=== PATIENT | male | born 1970 | race Caucasian/White ===

== ENCOUNTER 2022-03-04 04:27 | Emergency (ER) | payer MEDICAID, SELFPAY ==
--- NOTE | 2022-03-04 | ECG_ITS ---
Test Reason : chest pain Blood Pressure : / mmHG Vent. Rate : 066 BPM Atrial Rate : 066 BPM P-R Int : 124 ms QRS Dur : 124 ms QT Int : 434 ms P-R-T Axes : 017 017 -12 degrees QTc Int : 454 ms Normal sinus rhythm Right bundle branch block Nonspecific T wave abnormality Inferior leads Abnormal ECG When compared with ECG of 11-DEC-2010 06:57, Right bundle branch block is now Present Referred By: Sreedhar Monsivais Electronically Signed By:CYNDY DOWNS MD
--- NOTE | ~2022-03-04 | XR_ITS ---
EXAMINATION: XR CHEST CLINICAL INFORMATION: Chest pain COMPARISON: 12/10/2010 TECHNIQUE: Frontal view of the chest was obtained. FINDINGS: The lungs are well expanded. There is no focal consolidation, edema, or effusion. No pneumothorax. The cardiomediastinal silhouette is within normal limits. No acute osseous abnormality. Degenerative changes at the left glenohumeral joint. XR/XR chest 1V IMPRESSION: No acute pulmonary disease.
[2022-03-04 04:35] VITALS: BP 155/90; PULSE 65; O2SAT 100
[2022-03-04 04:36] VITALS: BMI 25.8
[2022-03-04 04:43] VITALS: BP 142/84; PULSE 65; RESP 22; O2SAT 100
--- NOTE | 2022-03-04 04:53 | ED.CHESTPAIN ---
HPI - Chest Pain General Chief Complaint: Chest Pain Stated Complaint: CP/SOB Time Seen by Provider: 03/04/22 04:53 Source: patient Mode of arrival: EMS Limitations: no limitations History of Present Illness HPI narrative: Patient with history of substance abuse use 8 bags of heroin earlier today feels anxious feels short of breath for a long time multiple complaints saturating 100% on room air Related Data Allergies Allergy/AdvReac Type Severity Reaction Status Date / Time No Known Allergies Allergy Verified 03/04/22 04:53 Review of Systems Review of Systems: Yes all other systems are reviewed and are negative [facility] Social History Social History Advance Directives: No Advance Directives Information Provided: No Physical Exam Vital Signs: Vital Signs: Last Vital Signs Pulse 65 03/04/22 04:43 Resp 22 H 03/04/22 04:43 BP 142/84 H 03/04/22 04:43 Pulse Ox 100 03/04/22 04:43 O2 Del Method 03/04/22 04:43 BMI result Body Mass Index 25.8 Appearance: Alert. Oriented X3. No acute distress. Anxious Eyes: PERRLA, No Nystagmus ENT: Pharynx normal. Oral Mucosa moist Neck: Normal inspection. Neck supple. CVS: Normal heart rate and rhythm. Pulses normal. Respiratory: No respiratory distress. Equal air entry bilateral, no wheezing/rales/rhonchi Abdomen: Soft and nontender. Bowel sounds are present, no mass palpable, no CVA tenderness Skin: Skin warm and dry. Normal skin color. Normal skin turgor. Extremities: No lower extremity edema. No calf tenderness IV track moralez Neuro: Oriented X 3. No motor deficit. No sensory deficit.No cerebellar signs , cranial nerves II-XII intact MDM - Chest Pain MDM Narrative Medical decision making narrative: Patient saturating 100% on room air very anxious on arrival at this time sleeping no complaints discharge patient home ECG Data ECG #1: Attestation: I personally reviewed and interpreted this ECG as follows: Interpretation: Normal sinus rhythm heart rate 65 beats per minute right bundle-branch block no acute ST changes no acute ischemia Discharge Plan Discharge Clinical Impression: Opiate abuse, continuous Patient Disposition: Home, Self-Care Instructions: Opioid Use Disorder (ED) Additional Instructions: Follow detox
[2022-03-04] MEDS: LORazepam 1 MG TABLET 2 MG PO (05:10)
== END 2022-03-04 06:38 | disposition home or self-care (01) ==
PROVIDERS: Emergency Provider Internal Medicine
DX: R06.02 Shortness of breath (principal); F11.10 Opioid abuse, uncomplicated; R07.89 Other chest pain
CPT/HCPCS: 71045; 93005; 99283; 99284

== ENCOUNTER 2022-09-21 01:31 | Inpatient (IN) | payer MEDICAID, SELFPAY ==
--- NOTE | ~2022-09-21 | US_ITS ---
EXAMINATION: US RETROPERITONEAL LIMITED (RENAL ONLY) CLINICAL INFORMATION: Acute kidney injury. COMPARISON: None available. TECHNIQUE: Real-time ultrasound examination of the kidneys. Images supplemented by color Doppler. FINDINGS: RIGHT KIDNEY: 13.4 x 5.3 x 6.7 cm (SAG x AP x TRV). Diffusely echogenic. The kidney. Unremarkable in size and contour. Renal cortical thickness is normal. No calculi or focal parenchymal lesions identified. No hydronephrosis. LEFT KIDNEY: 12.3 x 7.2 x 7.2 cm (SAG x AP x TRV). Diffusely echogenic. The kidney. Unremarkable in size and contour. Renal cortical thickness is normal. No calculi or focal parenchymal lesions identified. No hydronephrosis. BLADDER: Not imaged. US/US renal BI IMPRESSION: No evidence of stone or hydronephrosis. Increased renal parenchymal echogenicity bilaterally, suggesting medical renal disease.
--- NOTE | ~2022-09-21 | CT_ITS ---
EXAMINATION: CT CHEST, ABDOMEN AND PELVIS WITHOUT CONTRAST CLINICAL INFORMATION: Shortness of breath COMPARISON: Chest x-ray from the same day TECHNIQUE: Multidetector volumetric imaging was performed from the thoracic inlet through the pubic symphysis. Sagittal and coronal reformatted images were obtained on the technologist's workstation. Axial MIP volume rendering provided. This CT examination was performed using dose optimization techniques as appropriate, variously including the following: *Automated exposure control *Adjustment of mA and/or kV according to patient size (this includes techniques or standardized protocols for targeted exams where dose is matched to indication/reason for exam; i.e. extremities or head) *Use of iterative reconstruction technique DLP: 1240 mGy-cm FINDINGS: CHEST: Lungs: There are moderately extensive multifocal regions of consolidation and relatively nodular opacities bilaterally. Most extensive region of consolidation is in the left lower lobe. Several of the more nodular consolidative foci demonstrate internal cavitations. Mediastinum: Thyroid gland is grossly unremarkable. Limited evaluation of the mediastinum without intravenous contrast. Mild mediastinal adenopathy cannot be excluded. Cardiac size is within normal limits; no pericardial effusion. Coronary Artery Calcification: Mild Pleura: No pneumothorax. Trace left pleural effusion. Chest Wall/Axilla: Unremarkable. ABDOMEN/PELVIS: Liver, Gallbladder, Biliary Tree: The liver is grossly unremarkable though not well assessed without intravenous contrast. Gallbladder appears physiologically distended without significant wall thickening or surrounding inflammation. Pancreas: Grossly unremarkable. Spleen: Enlarged, measuring approximately 15 cm in length. Adrenal Glands: Left adrenal calcification may reflect sequelae of prior hemorrhage or infection. Right adrenal gland appears unremarkable. Kidneys and Ureters: Mildly prominent renal pelvises, with no obstructing calculus seen. Bladder: Unremarkable. Gastrointestinal Tract: No evidence of bowel obstruction. No significant bowel wall thickening is seen. There is moderate stool in the colon. Appendix is suspected to be collapsed though is overall not well evaluated. Abdominal Wall: No hernia is demonstrated. Lymphovascular Structures: Lymph nodes: Not well evaluated without intravenous contrast. Vascular: Relatively mild atherosclerotic calcification. Pelvic Viscera: Unremarkable. OSSEOUS STRUCTURES: Scattered degenerative changes including thoracic endplate osteophytes and lower lumbar facet arthropathy. Degenerative change also noted at L5-S1. CT/CT abdomen pelvis wo IV con IMPRESSION: 1. Moderately extensive regions of pulmonary consolidation and relatively nodular opacities bilaterally, some of which demonstrate cavitations. This raises suspicion for an infectious etiology, including septic emboli. Malignant etiology is considered overall less likely, though imaging follow-up is recommended to assess for resolution. 2. Trace left pleural effusion. 3. Splenomegaly. 4. Mildly prominent renal pelvises, with no obstructing calculus seen. 5. Coronary artery calcifications. Correlation with cardiac risk factors is recommended.
--- NOTE | ~2022-09-21 | XR_ITS ---
EXAMINATION: XR CHEST CLINICAL INFORMATION: Shortness of breath COMPARISON: 03/04/2022 TECHNIQUE: Frontal view of the chest was obtained. FINDINGS: The lungs are hypoinflated. There are multifocal patchy bilateral opacities suspicious for multifocal pneumonia. No evidence of pneumothorax or significant pleural effusion. The cardiomediastinal contour is unremarkable. No acute osseous findings are seen. XR/XR chest 1V IMPRESSION: Multifocal patchy bilateral opacities suspicious for multifocal pneumonia. Radiographic followup after treatment/resolution of symptoms is recommended.
--- NOTE | ~2022-09-21 | CT_ITS ---
EXAMINATION: CT HEAD WITHOUT CONTRAST CLINICAL INFORMATION: Septic emboli. Encephalopathy. COMPARISON: CTA of the head and brain MRI July 2022 TECHNIQUE: Contiguous axial imaging was performed from the skull base to vertex without intravenous administration of contrast. This CT examination was performed using dose optimization techniques as appropriate, variously including the following: *Automated exposure control *Adjustment of mA and/or kV according to patient size (this includes techniques or standardized protocols for targeted exams where dose is matched to indication/reason for exam; i.e. extremities or head) *Use of iterative reconstruction technique DLP: 698 mGy-cm FINDINGS: Exam is limited due to motion artifact. There is no evidence of an extra-axial collection. There is no evidence of intra or extra-axial hemorrhage. The ventricles and extra-axial CSF spaces are appropriate. Siegel-white matter differentiation is normal. No mass, mass effect or infarct. Review of bone windows is normal. Visualized paranasal sinuses, mastoid air cells and middle ears are clear. CT/CT head/brain wo IV con IMPRESSION: Slightly limited exam due to motion. No abnormality seen.
[2022-09-21 01:37] VITALS: BP 148/72; BP 168/90; PULSE 80; PULSE 90; RESP 18; TEMP 36.8; O2SAT 94; O2SAT 97; BMI 23.5
--- NOTE | 2022-09-21 01:44 | ECG_ITS ---
Test Reason : SOB Blood Pressure : / mmHG Vent. Rate : 078 BPM Atrial Rate : 078 BPM P-R Int : 134 ms QRS Dur : 140 ms QT Int : 442 ms P-R-T Axes : 000 -12 012 degrees QTc Int : 503 ms Normal sinus rhythm Right bundle branch block Abnormal ECG When compared with ECG of 04-MAR-2022 04:37, Criteria for Septal infarct are no longer Present T wave inversion now evident in Anterior leads Referred By: Generic ED Physician Electronically Signed By:Quan Cantu
[2022-09-21 01:57] LABS: Basophils Absolute Auto 0.1 X10*3/uL (0.0-0.2); Basophils Percent Auto 0.3 % (0-2); Hematocrit 35.4 % (42.0-52.0); Hemoglobin 12.3 g/dl (14.0-18.0); Imm Gran Abs Auto 0.96 X10*3/uL (0.00-0.03); Imm Gran Pct Auto 3.4 % (0.0-0.4); Lymphocytes Percent Auto 3.7 % (20-40); MANUAL DIFF FLAG SCAN; Mean Corpuscular HGB Conc 34.7 g/dl (31.0-36.0); Mean Corpuscular Hemoglobin 27.7 pg (27.0-33.0); Mean Corpuscular Volume 79.7 fL (80.0-98.0); Mean Platelet Volume 8.8 fL (9.4-12.4); Monocytes Absolute Auto 1.3 X10*3/uL (0.1-1.2); Monocytes Percent Auto 4.5 % (2-11); Neutrophils Percent Auto 88.1 % (45-73); Platelet Count 187 X10*3/uL (160-400); Red Blood Count 4.44 X10*6/uL (4.60-5.80); Red Cell Distribution Width 18.6 % (11.0-16.0); SCAN SMEAR FLAG 1; White Blood Count 28.4 X10*3/uL (4.8-10.8)
[2022-09-21 02:16] LABS: Anion Gap 21 (12-20); Blood Urea Nitrogen 109 mg/dL (9-16); Calcium 8.2 mg/dL (8.4-10.2); Carbon Dioxide 18 mmol/L (22-29); Chloride 99 mmol/L (96-108); Creatinine Clr Calc Pharmacy 16.1; Estimated Glomerular Filt Rate 12; Glucose Random 128 mg/dL (60-115); Potassium 3.9 mmol/L (3.3-5.1); Sodium 134 mmol/L (135-145)
[2022-09-21 02:34] LABS: SLIDE REVIEW VERIFIED
[2022-09-21] MEDS: Piperacillin Sodium/Tazobactam 4.5 GM in 0.9 % Sodium Chloride 100 ML IV (02:34)
[2022-09-21] MEDS: Acetaminophen 325 MG TABLET 975 MG PO (02:34)
[2022-09-21 02:40] LABS: Appearance Urine Cloudy; Color Urine Yellow; Glucose Urine UA Negative (Negative); Leukocyte Esterase Urine Moderate (2+) (Negative); Nitrite Urine Negative (Negative); UMIC TRIGGER UACC YES; Urine Blood Large (3+) (Negative); Urine Ketones Negative (Negative); Urine Protein 30 (1+) mg/dL (Neg-Trace)
[2022-09-21] MEDS: 0.9 % Sodium Chloride 2,041.17 ML 2041.17 ML IV (02:41)
[2022-09-21 02:42] LABS: Bacteria Urine None Seen (None Seen); Hyaline Casts Urine 0-2 /LPF (0-2); RBC Urine >20 /HPF (0-2); UACC Culture Trigger YES; WBC Urine 21-50 /HPF (0-5)
--- NOTE | 2022-09-21 02:44 | ED.SOB ---
HPI - SOB/Dyspnea General Chief Complaint: Dyspnea Stated Complaint: CP Time Seen by Provider: 09/21/22 02:04 History of Present Illness HPI Narrative: Patient is a 51-year-old male with a history of polysubstance abuse. Including IV drug use. Patient admits to using heroin prior to arrival. Presents today with shortness of breath generalized malaise. He stated he had a admission to [facility] in [place]. Question pneumonia. [place] very weak short of breath. Patient unable to answer detailed questions Related Data Allergies Allergy/AdvReac Type Severity Reaction Status Date / Time No Known Allergies Allergy Verified 03/04/22 04:53 Review of Systems Review of Systems: Positive shortness of breath generalized malaise PMFSH Past Medical History Attestation statement: The following information was validated with the patient. Social History Social History Alcohol intake: never Smoked in Last 30 Days: No Use of substances other than those prescribed or required for medical reasons: Yes Substance Use Type: Heroin Substance Use Frequency: Chronic Longstanding Last Used Substance: Hours (ago) Advance Directives: No Advance Directives Information Provided: Yes Physical Exam Vital Signs: Vital Signs: Last Vital Signs Temp 97.9 F 09/21/22 03:07 Pulse 89 09/21/22 03:07 Resp 18 09/21/22 03:07 BP 136/80 09/21/22 03:07 Pulse Ox 98 09/21/22 03:07 O2 Del Method Room Air 09/21/22 03:07 BMI result Body Mass Index 23.5 Sick appearing male mom leg Appearance: Alert. Oriented to self and place No acute distress. Eyes: Pupils equal, round and reactive to light. ENT: Pharynx normal. Neck: Normal inspection. Neck supple. No lymph nodes noted. No crepitus CVS: Normal heart rate and rhythm. Positive systolic murmur Respiratory: No respiratory distress. Breath sounds normal. No Wheezing. No rales Abdomen: Soft and nontender. No rigidity. No distention. good BS x4 Skin: Skin warm and dry. Normal skin color. Normal skin turgor. Extremities: No lower extremity edema. Neurovascular intact to all extremities. No Lacerations. No Rash Neuro: Oriented X to. No motor deficit. No sensory deficit. Moving all extermities. No slurred speech Medications Administered Discontinued Medications Generic Name Dose Route Start Last Admin Trade Name Mina PRN Reason Stop Dose Admin Acetaminophen 975 mg 09/21/22 02:16 09/21/22 02:34 Acetaminophen 325 Mg Tablet PO 09/21/22 02:17 975 mg ONCE ONE Administration Piperacillin Sod/Tazobactam 100 mls @ 200 mls/hr 09/21/22 02:16 09/21/22 03:06 Sod 4.5 gm/ Sodium Chloride IV 09/21/22 02:45 Infused ONCE ONE Infusion Sodium Chloride 2,041.17 mls @ 2,041.17 mls/hr 09/21/22 02:19 09/21/22 03:43 Ns 30 ml/kg infuse over 1 hr (2041.17 ml) 09/21/22 03:18 Infused IV Infusion .Q1H STA Vancomycin HCl 1,000 mg/ 270 mls @ 270 mls/hr 09/21/22 03:54 09/21/22 04:02 Sodium Chloride IV 09/21/22 04:53 Not Given ONCE ONE Medical Decision Making Medical Decision Making MDM Narrative: Positive generalized malaise weakness. His white count is 28. Patient had shortness of breath. Chest x-ray suggestive of pneumonia. Additional labs are pending. Cultures are being obtained. Patient's electrolytes shows an elevated creatinine consistent with renal insufficiency. Question timing. Patient's old chart was requested from [facility]. Patient to get a CT scan of the chest abdomen pelvis. Will require admission. Cultures obtained lactate are pending. Patient to be started on Zosyn for empiric coverage. His urine just came back grossly infected as well. Patient lactate was normal. White count was extremely elevated at 28. Patient's BUN and creatinine was elevated. At 100/5. Patient's old record from [facility] was obtained. Baseline creatinine at [facility] in July was normal. With a creatinine of 1. CT scan of the chest abdomen pelvis showed no post renal obstruction. It did show multi focal pneumonia with cavitation. In the setting of patient having a murmur consideration also given for possible endocarditis. IV fluid was given. Patient to be admitted. Case discussed with hospitalist team. Patient's EKG showed a sinus pattern heart rate is 80 OK is normal QRS is wide secondary to a right bundle-branch block QTC is prolonged at 05:03. There is T-wave inversions over the inferior leads this EKG is grossly unchanged from previous. Hospitalist made aware of the situation. Will consult and admit. Differential Diagnosis Differential Diagnoses: The differential diagnosis associated with the presentation includes Pneumonia congestive heart failure pneumothorax renal insufficiency secondary to post renal pre renal and renal disease. Polysubstance abuse. Endocarditis, UTI Consult Healthcare Provider Management of the patient was discussed with: Hospitalist Lab Data MDM Lab Attestation statement: I reviewed the patient's lab results. 09/21/22 01:50 09/21/22 01:50 Labs: Lab Results 09/21/22 09/21/22 09/21/22 Range/Units 01:50 01:50 01:50 WBC 28.4 H (4.8-10.8) X10*3/uL RBC 4.44 L (4.60-5.80) X10*6/uL Hgb 12.3 L (14.0-18.0) g/dl Hct 35.4 L (42.0-52.0) % MCV 79.7 L (80.0-98.0) fL MCH 27.7 (27.0-33.0) pg MCHC 34.7 (31.0-36.0) g/dl RDW 18.6 H (11.0-16.0) % Plt Count 187 (160-400) X10*3/uL MPV 8.8 L (9.4-12.4) fL Immature Gran % (Auto) 3.4 H (0.0-0.4) % Neut % (Auto) 88.1 H (45-73) % Lymph % (Auto) 3.7 L (20-40) % [place] % (Auto) 4.5 (2-11) % Eos % (Auto) 0.0 (0-4) % Baso % (Auto) 0.3 (0-2) % Lymph # (Auto) 1.0 L (1.2-4.9) X10*3/uL [place] # (Auto) 1.3 H (0.1-1.2) X10*3/uL Eos # (Auto) 0.0 (0.0-0.4) X10*3/uL Baso # (Auto) 0.1 (0.0-0.2) X10*3/uL Abs Immat Gran (auto) 0.96 H (0.00-0.03) X10*3/uL Absolute Neuts (auto) 25.0 H (2.0-8.3) x10*3/uL Absolute Nucleated RBC 0.000 (0.0-0.012) X10*3/uL Nucleated RBC % (auto) 0.0 (0.0-0.2) /100WBC Smear Tech's Comments VERIFIED Sodium 134 L (135-145) mmol/L Potassium 3.9 (3.3-5.1) mmol/L Chloride 99 (96-108) mmol/L Carbon Dioxide 18 L (22-29) mmol/L Anion Gap 21 H (12-20) BUN 109 H (9-16) mg/dL Creatinine 5.07 H* (0.5-1.4) mg/dL Estim Creat Clear Calc 16.1 Estimated GFR 12 Random Glucose 128 H (60-115) mg/dL Lactic Acid (0.5-2.0) mmol/L Calcium 8.2 L (8.4-10.2) mg/dL Total Bilirubin 1.1 H (0.0-1.0) mg/dL Direct Bilirubin 0.5 (0.0-0.5) mg/dL AST 17 (5-37) U/L ALT 11 (0-40) U/L Alkaline Phosphatase 125 H (39-117) U/L Troponin I High Sens 3.0 (<3.5-35.0) ng/L B-Natriuretic Peptide (<100) pg/mL Total Protein 7.6 (6.5-8.0) g/dL Albumin 2.7 L (3.5-5.0) g/dL Lipase 15 (8-78) U/L Urine Color Urine Appearance Urine pH (5.0-9.0) Ur Specific [place] (1.005-1.025) Urine Protein (Neg-Trace) mg/dL Urine Glucose (UA) (Negative) mg/dL Urine Ketones (Negative) mg/dL Urine Blood (Negative) Urine Nitrite (Negative) Ur Leukocyte Esterase (Negative) Urine RBC (0-2) /HPF Urine WBC (0-5) /HPF Ur Squamous Epith Cells (0-2) /HPF Urine Bacteria (None Seen) Hyaline Casts (0-2) /LPF Influenza Type A (PCR) (Negative) Influenza Type B (PCR) (Negative) RSV RNA Qual (PCR) (Negative) SARS-CoV-2 RNA (RT-PCR) (Negative) 09/21/22 09/21/22 09/21/22 Range/Units 02:27 02:29 02:29 WBC (4.8-10.8) X10*3/uL RBC (4.60-5.80) X10*6/uL Hgb (14.0-18.0) g/dl Hct (42.0-52.0) % MCV (80.0-98.0) fL MCH (27.0-33.0) pg MCHC (31.0-36.0) g/dl RDW (11.0-16.0) % Plt Count (160-400) X10*3/uL MPV (9.4-12.4) fL Immature Gran % (Auto) (0.0-0.4) % Neut % (Auto) (45-73) % Lymph % (Auto) (20-40) % [place] % (Auto) (2-11) % Eos % (Auto) (0-4) % Baso % (Auto) (0-2) % Lymph # (Auto) (1.2-4.9) X10*3/uL [place] # (Auto) (0.1-1.2) X10*3/uL Eos # (Auto) (0.0-0.4) X10*3/uL Baso # (Auto) (0.0-0.2) X10*3/uL Abs Immat Gran (auto) (0.00-0.03) X10*3/uL Absolute Neuts (auto) (2.0-8.3) x10*3/uL Absolute Nucleated RBC (0.0-0.012) X10*3/uL Nucleated RBC % (auto) (0.0-0.2) /100WBC Smear Tech's Comments Sodium (135-145) mmol/L Potassium (3.3-5.1) mmol/L Chloride (96-108) mmol/L Carbon Dioxide (22-29) mmol/L Anion Gap (12-20) BUN (9-16) mg/dL Creatinine (0.5-1.4) mg/dL Estim Creat Clear Calc Estimated GFR Random Glucose (60-115) mg/dL Lactic Acid 1.2 (0.5-2.0) mmol/L Calcium (8.4-10.2) mg/dL Total Bilirubin (0.0-1.0) mg/dL Direct Bilirubin (0.0-0.5) mg/dL AST (5-37) U/L ALT (0-40) U/L Alkaline Phosphatase (39-117) U/L Troponin I High Sens 4.1 (<3.5-35.0) ng/L B-Natriuretic Peptide 99 (<100) pg/mL Total Protein (6.5-8.0) g/dL Albumin (3.5-5.0) g/dL Lipase (8-78) U/L Urine Color Urine Appearance Urine pH (5.0-9.0) Ur Specific [place] (1.005-1.025) Urine Protein (Neg-Trace) mg/dL Urine Glucose (UA) (Negative) mg/dL Urine Ketones (Negative) mg/dL Urine Blood (Negative) Urine Nitrite (Negative) Ur Leukocyte Esterase (Negative) Urine RBC (0-2) /HPF Urine WBC (0-5) /HPF Ur Squamous Epith Cells (0-2) /HPF Urine Bacteria (None Seen) Hyaline Casts (0-2) /LPF Influenza Type A (PCR) (Negative) Influenza Type B (PCR) (Negative) RSV RNA Qual (PCR) (Negative) SARS-CoV-2 RNA (RT-PCR) (Negative) 09/21/22 09/21/22 Range/Units 02:29 02:31 WBC (4.8-10.8) X10*3/uL RBC (4.60-5.80) X10*6/uL Hgb (14.0-18.0) g/dl Hct (42.0-52.0) % MCV (80.0-98.0) fL MCH (27.0-33.0) pg MCHC (31.0-36.0) g/dl RDW (11.0-16.0) % Plt Count (160-400) X10*3/uL MPV (9.4-12.4) fL Immature Gran % (Auto) (0.0-0.4) % Neut % (Auto) (45-73) % Lymph % (Auto) (20-40) % [place] % (Auto) (2-11) % Eos % (Auto) (0-4) % Baso % (Auto) (0-2) % Lymph # (Auto) (1.2-4.9) X10*3/uL [place] # (Auto) (0.1-1.2) X10*3/uL Eos # (Auto) (0.0-0.4) X10*3/uL Baso # (Auto) (0.0-0.2) X10*3/uL Abs Immat Gran (auto) (0.00-0.03) X10*3/uL Absolute Neuts (auto) (2.0-8.3) x10*3/uL Absolute Nucleated RBC (0.0-0.012) X10*3/uL Nucleated RBC % (auto) (0.0-0.2) /100WBC Smear Tech's Comments Sodium (135-145) mmol/L Potassium (3.3-5.1) mmol/L Chloride (96-108) mmol/L Carbon Dioxide (22-29) mmol/L Anion Gap (12-20) BUN (9-16) mg/dL Creatinine (0.5-1.4) mg/dL Estim Creat Clear Calc Estimated GFR Random Glucose (60-115) mg/dL Lactic Acid (0.5-2.0) mmol/L Calcium (8.4-10.2) mg/dL Total Bilirubin (0.0-1.0) mg/dL Direct Bilirubin (0.0-0.5) mg/dL AST (5-37) U/L ALT (0-40) U/L Alkaline Phosphatase (39-117) U/L Troponin I High Sens (<3.5-35.0) ng/L B-Natriuretic Peptide (<100) pg/mL Total Protein (6.5-8.0) g/dL Albumin (3.5-5.0) g/dL Lipase (8-78) U/L Urine Color Yellow Urine Appearance Cloudy Urine pH 5.0 (5.0-9.0) Ur Specific [place] 1.010 (1.005-1.025) Urine Protein 30 (1+) H (Neg-Trace) mg/dL Urine Glucose (UA) Negative (Negative) mg/dL Urine Ketones Negative (Negative) mg/dL Urine Blood Large (3+) H (Negative) Urine Nitrite Negative (Negative) Ur Leukocyte Esterase Moderate (2+) H (Negative) Urine RBC >20 H (0-2) /HPF Urine WBC 21-50 H (0-5) /HPF Ur Squamous Epith Cells 6-10 (0-2) /HPF Urine Bacteria None Seen (None Seen) Hyaline Casts 0-2 (0-2) /LPF Influenza Type A (PCR) NEGATIVE (Negative) Influenza Type B (PCR) NEGATIVE (Negative) RSV RNA Qual (PCR) NEGATIVE (Negative) SARS-CoV-2 RNA (RT-PCR) NEGATIVE (Negative) Independent Interpretation I performed an independent interpretation of an: EKG and Plain X-Ray Interpretation: Sinus rhythm heart rate is 80 there is a normal OK interval QRS is wide QTC prolonged at 05:03 patient has a right bundle-branch block with T-wave inversions over the anterior leads. This finding was compared to a previous EKG done in April it is approximately the same. My interpretation patient's x-ray showed bilateral infiltrate. External Record Review External record reviewed: Inpatient record and Outside ED record Chronic Conditions Patient?s care impacted by: Hypertension Critical Care Time Critical Care Time Critical Care Time: Yes Total Critical Care Time: 40 Attestation: I have personally provided 40 minutes of critical care time exclusive of time spent on separately billable procedures. Time includes review of lab data, radiology results, discussion with consultants, and monitoring for potential decompensation. Interventions were performed as documented above Discharge Plan Discharge Clinical Impression: Community acquired pneumonia Patient Disposition: Admitted As Inpatient
[2022-09-21 02:47] LABS: Alanine Aminotransferase 11 U/L (0-40); Albumin Level 2.7 g/dL (3.5-5.0); Alkaline Phosphatase 125 U/L (39-117); Aspartate Amino Transferase 17 U/L (5-37); Bilirubin Direct 0.5 mg/dL (0.0-0.5); Bilirubin Total 1.1 mg/dL (0.0-1.0); Lipase 15 U/L (8-78); Total Protein 7.6 g/dL (6.5-8.0)
[2022-09-21 02:48] LABS: Lactic Acid 1.2 mmol/L (0.5-2.0)
--- NOTE | 2022-09-21 02:51 | MHC.EDTECH ---
@ [phone] placed call to [facility] for records per ,spoke to Ligia the nursing over [employer] targeting supervisor and sent a signed release,awaiting fax at this time.
[2022-09-21 02:59] LABS: Troponin-I High Sensitivity 4.1 ng/L (<3.5-35.0)
[2022-09-21 03:00] LABS: B Type Natriuretic Peptide 99 pg/mL (<100)
[2022-09-21 03:07] VITALS: BP 136/80; PULSE 89; RESP 18; TEMP 36.6; O2SAT 98
[2022-09-21 03:16] LABS: Influenza A PCR NEGATIVE (Negative); Influenza B PCR NEGATIVE (Negative); Resp Syncy Virus RNA Qual PCR NEGATIVE (Negative); SARS COV2 PCR INHOUSE NEGATIVE (Negative)
[2022-09-21] MEDS: vancomycin HCL 1,000 MG, vancomycin HCL 750 MG in 0.9 % Sodium Chloride 500 ML 267.5 MG IV (04:19)
--- NOTE | 2022-09-21 05:04 | MHC.EDTECH ---
Belonging list, and liner roll changer done at 0504 - Before bringing patient up to Room
[2022-09-21] MEDS: Lactated Ringers 1,000 ML 100 ML IVCONT ×2 (05:37→15:33)
[2022-09-21 05:42] VITALS: BP 127/76; PULSE 80; RESP 22; TEMP 36.8; O2SAT 98
[2022-09-21 05:45] VITALS: BMI 24.8
[2022-09-21] MEDS: Heparin Sodium,Porcine 5,000 UNIT/ML VIAL 5000 UNIT SUBCUT ×2 (05:56→17:31)
--- NOTE | 2022-09-21 06:00 | PC.NURSE ---
Pt arrived from the ED to rm [id number] at 0530 per stretcher, slid to bed by staff, pt is lethargic, oriented x4, c/o generalized body aches, LS has scattered fine crackles and dim, tolerating RA, VS WNL, safety measures instructed, bed alarm on.
--- NOTE | 2022-09-21 06:30 | PM.IMHP ---
History of Present Illness Date of Service: 09/21/22 Chief Complaint: SOB, feeling sick 51-year-old male no past medical history of opioid use disorder, history of endocarditis per records received from outside hospital presents today with complaints of shortness of breath, and generally not feeling well. Patient is lethargic but wakes up and answers questions appropriately not in detail. Patient states feeling not well, short of breath, no cough, states has midsternal chest pain that is sharp, ports generalized abdominal pain, no nausea or vomiting, no diarrhea, no urinary symptoms, no lower extremity edema. Patient does endorse injecting IV drugs. On arrival to the ED patient found to be hemodynamically stable Labs are significant for WBC count of 28.4, hemoglobin of 12.3, hematocrit 35, left shift, creatinine of 5.07 with a baseline of around 1.1, UA positive for leukocyte Estrace and WBC, Imaging including abdominal pelvic CT as well as chest CT shows moderately extensive regions of pulmonary consolidation and relatively nodular opacities bilaterally some of which demonstrate cavitation raising suspicion for infectious etiology including septic emboli. Patient also has trace left pleural effusion, splenomegaly, mildly prominent renal pelvis sees with no obstructing stone, coronary artery calcification Patient started on IV antibiotics and will be admitted for further management Review of Systems Review of Systems: Yes all other systems are reviewed and are negative [facility] Medical History Endocarditis Opioid use disorder Surgical History No pertinent past surgical history Social History Household Members Other:: homeless Housing Other:: homeless Alcohol intake: never Patient Tobacco Use Status: Current everyday Tobacco user Smoked in Last 30 Days: No Use of substances other than those prescribed or required for medical reasons: Yes Substance Use Type: Crack/Cocaine and Heroin Substance Use Frequency: Chronic Longstanding Last Used Substance: Hours (ago) Last Used Substance Other:: 2 days ago Currently Displaying Signs/Symptoms of Drug Intoxication Withdrawal: No Advance Directives: No Advance Directives Information Provided: Yes Do you have thoughts of harming others: None Do you have a plan to hurt others: No Plan Recently lost weight without trying: No How much weight loss: Unsure Eating poorly because of decreased appetite: No Nutrition screen score: 2 Nutrition Risks: No Nutritional Risk Poor oral hygiene: No Meds Allergies Allergy/AdvReac Type Severity Reaction Status Date / Time No Known Allergies Allergy Verified 03/04/22 04:53 Active Medications: Current Medications Acetaminophen (Acetaminophen 325 Mg Tablet) 650 mg PO Q6H PRN PRN Reason: Pain, Mild (Pain Scale 1-3) Docusate Sodium (Docusate Sodium 100 Mg Capsule) 100 mg PO DAILY PRN PRN Reason: Constipation Heparin Sodium (Porcine) (Heparin Sodium,Porcine 5,000 Unit/Ml Vial) 5,000 unit SUBCUT Q12H [facility] Last Admin: 09/21/22 05:56 Dose: 5,000 unit Lactated Ringer's (Lr) 1,000 mls @ 100 mls/hr IVCONT .Q10H [facility] Last Admin: 09/21/22 05:37 Dose: 100 mls/hr Piperacillin Sod/Tazobactam (Sod 2.25 gm/ Sodium Chloride) 50 mls @ 100 mls/hr IV Q8H [facility] Ondansetron HCl (Ondansetron Hcl 4 Mg/2 Ml Vial) 4 mg IVPUSH Q8H PRN PRN Reason: Nausea and Vomiting Pharmacy Consult (Consult Rx Vancomycin Dosing) 1 each MISCELLANE DAILY PRN PRN Reason: Consult order Pharmacy Consult (Consult Rx Vancomycin Dosing) 1 each MISCELLANE DAILY PRN PRN Reason: Consult order Physical Exam Vital Signs and Narrative: Vital Signs: Last Vital Signs Temp 98.3 F 09/21/22 05:42 Pulse 80 09/21/22 05:42 Resp 22 H 09/21/22 05:42 BP 127/76 09/21/22 05:42 Pulse Ox 98 09/21/22 05:42 O2 Del Method Room Air 09/21/22 05:42 BMI result Body Mass Index 24.8 Const: Other: Patient ill-appearing, poor hygiene, lethargic but wakes up and answers questions General: cooperative and no acute distress Eyes: General: appearance normal, both eyes and all related structures Resp: Effort & Inspection: normal respiratory effort Auscultation: clear to auscultation bilaterally Cardio: Rate: regular rate Rhythm: regular rhythm GI: Other: Abdomen is diffusely tender, no rebound or guarding, Palpation (GI): Soft to palpation Skin: General skin exam: no rashes or lesions noted Neuro: Cognition (Neuro): normal cognition Extrem: General: Yes normal to inspection and Yes no pedal edema Results Labs 09/21/22 01:50 09/21/22 01:50 Labs: Laboratory Results - last 24 hr 09/21/22 09/21/22 09/21/22 01:50 01:50 01:50 MCV 79.7 L MCH 27.7 MCHC 34.7 RDW 18.6 H Plt Count 187 MPV 8.8 L Immature Gran % (Auto) 3.4 H Neut % (Auto) 88.1 H Lymph % (Auto) 3.7 L [place] % (Auto) 4.5 Eos % (Auto) 0.0 Baso % (Auto) 0.3 Lymph # (Auto) 1.0 L [place] # (Auto) 1.3 H Eos # (Auto) 0.0 Baso # (Auto) 0.1 Abs Immat Gran (auto) 0.96 H Absolute Neuts (auto) 25.0 H Absolute Nucleated RBC 0.000 Nucleated RBC % (auto) 0.0 Smear Tech's Comments VERIFIED Anion Gap 21 H Estim Creat Clear Calc 16.1 Estimated GFR 12 Random Glucose 128 H Lactic Acid Calcium 8.2 L Total Bilirubin 1.1 H Direct Bilirubin 0.5 AST 17 ALT 11 Alkaline Phosphatase 125 H Troponin I High Sens 3.0 B-Natriuretic Peptide Total Protein 7.6 Albumin 2.7 L Lipase 15 Urine Color Urine Appearance Urine pH Ur Specific [place] Urine Protein Urine Glucose (UA) Urine Ketones Urine Blood Urine Nitrite Ur Leukocyte Esterase Urine RBC Urine WBC Ur Squamous Epith Cells Urine Bacteria Hyaline Casts Influenza Type A (PCR) Influenza Type B (PCR) RSV RNA Qual (PCR) SARS-CoV-2 RNA (RT-PCR) 09/21/22 09/21/22 09/21/22 02:27 02:29 02:29 MCV MCH MCHC RDW Plt Count MPV Immature Gran % (Auto) Neut % (Auto) Lymph % (Auto) [place] % (Auto) Eos % (Auto) Baso % (Auto) Lymph # (Auto) [place] # (Auto) Eos # (Auto) Baso # (Auto) Abs Immat Gran (auto) Absolute Neuts (auto) Absolute Nucleated RBC Nucleated RBC % (auto) Smear Tech's Comments Anion Gap Estim Creat Clear Calc Estimated GFR Random Glucose Lactic Acid 1.2 Calcium Total Bilirubin Direct Bilirubin AST ALT Alkaline Phosphatase Troponin I High Sens 4.1 B-Natriuretic Peptide 99 Total Protein Albumin Lipase Urine Color Urine Appearance Urine pH Ur Specific [place] Urine Protein Urine Glucose (UA) Urine Ketones Urine Blood Urine Nitrite Ur Leukocyte Esterase Urine RBC Urine WBC Ur Squamous Epith Cells Urine Bacteria Hyaline Casts Influenza Type A (PCR) Influenza Type B (PCR) RSV RNA Qual (PCR) SARS-CoV-2 RNA (RT-PCR) 09/21/22 09/21/22 02:29 02:31 MCV MCH MCHC RDW Plt Count MPV Immature Gran % (Auto) Neut % (Auto) Lymph % (Auto) [place] % (Auto) Eos % (Auto) Baso % (Auto) Lymph # (Auto) [place] # (Auto) Eos # (Auto) Baso # (Auto) Abs Immat Gran (auto) Absolute Neuts (auto) Absolute Nucleated RBC Nucleated RBC % (auto) Smear Tech's Comments Anion Gap Estim Creat Clear Calc Estimated GFR Random Glucose Lactic Acid Calcium Total Bilirubin Direct Bilirubin AST ALT Alkaline Phosphatase Troponin I High Sens B-Natriuretic Peptide Total Protein Albumin Lipase Urine Color Yellow Urine Appearance Cloudy Urine pH 5.0 Ur Specific [place] 1.010 Urine Protein 30 (1+) H Urine Glucose (UA) Negative Urine Ketones Negative Urine Blood Large (3+) H Urine Nitrite Negative Ur Leukocyte Esterase Moderate (2+) H Urine RBC >20 H Urine WBC 21-50 H Ur Squamous Epith Cells 6-10 Urine Bacteria None Seen Hyaline Casts 0-2 Influenza Type A (PCR) NEGATIVE Influenza Type B (PCR) NEGATIVE RSV RNA Qual (PCR) NEGATIVE SARS-CoV-2 RNA (RT-PCR) NEGATIVE Imaging Radiologist's Impressions: Impressions Chest X-Ray 09/21/22 02:07 IMPRESSION: Multifocal patchy bilateral opacities suspicious for multifocal pneumonia. Radiographic followup after treatment/resolution of symptoms is recommended. Abdomen/Pelvis CT 09/21/22 03:05 IMPRESSION: 1. Moderately extensive regions of pulmonary consolidation and relatively nodular opacities bilaterally, some of which demonstrate cavitations. This raises suspicion for an infectious etiology, including septic emboli. Malignant etiology is considered overall less likely, though imaging follow-up is recommended to assess for resolution. 2. Trace left pleural effusion. 3. Splenomegaly. 4. Mildly prominent renal pelvises, with no obstructing calculus seen. 5. Coronary artery calcifications. Correlation with cardiac risk factors is recommended. Chest CT 09/21/22 03:05 IMPRESSION: 1. Moderately extensive regions of pulmonary consolidation and relatively nodular opacities bilaterally, some of which demonstrate cavitations. This raises suspicion for an infectious etiology, including septic emboli. Malignant etiology is considered overall less likely, though imaging follow-up is recommended to assess for resolution. 2. Trace left pleural effusion. 3. Splenomegaly. 4. Mildly prominent renal pelvises, with no obstructing calculus seen. 5. Coronary artery calcifications. Correlation with cardiac risk factors is recommended. Assessment and Plan (1) Multifocal pneumonia: Status: Acute (2) Systolic murmur: Status: Acute (3) Endocarditis: Status: Acute (4) Opioid use disorder: Status: Acute Plan This is a 51-year-old male with polysubstance abuse including IV drug presents the hospital with complaints of shortness of breath found to have several abnormalities # acute multifocal pneumonia - concerning for possible septic emboli in the setting of IV drug use and history of endocarditis - will treat with IV antibiotics - follow cultures # systolic murmur, acute endocarditis - patient with history of endocarditis as listed in his diagnoses from discharge notes from outside hospital ( [facility]) - concerning for acute endocarditis - will treat with IV antibiotics - follow cultures - will obtain echocardiogram # opioid use disorder - care team consulted DVT prophylaxis: Lovenox Given patient's need for IV antibiotics patient will require minimum 2 nights inpatient hospital stay for further management and monitor Time Spent With Patient Time: Total time managing care of this patient today ____ minutes. Quality Stroke Does the patient have a stroke diagnosis?: No VTE Prior VTE?: No VTE Risk Level:: Medical - moderate - high VTE Device Contraindication: Treatment Not Indicated VTE Drug Contraindication: N/A - Med Ordered
--- NOTE | 2022-09-21 07:00 | CA_ITS ---
Transthoracic Echocardiogram Patient (Last, First, Middle): Giuseppe Fisher, Gender: Male Date of : 1970 Age: 51 Procedure Date: 09/21/2022 Procedure Type: Transthoracic Echocardiogram Location[place] [facility] [place] Height: 170.18 cm Weight: 71.67 kg BSA: 1.83 m2 Heart Rate: bpm BP: 127 / 76 mmHg Medical Registrar: Referring MD: Keyla Tao MD Symptoms: IVD new murmur, embolic infex, endocarditis Study Quality: Good ECG Rhythm: Sinus Conclusions: - Normal left ventricular size and systolic function. There is mildly increased left ventricular wall thickness. The visually estimated ejection fraction is between 60-65%. - Mildly increased right ventricular cavity size. There is normal right ventricular systolic function. - The left atrium is moderately dilated. - 0.7 x 0.6 cm vegetation on the noncoronary cusp of the aortic valve. - Vegetation on the tricuspid valve which in some views appears elongated and dimensions are 3 x 1 cm. 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 Findings Left Ventricle Normal left ventricular size and systolic function. There is mildly increased left ventricular wall thickness. The visually estimated ejection fraction is between 60-65%. There is no evidence of regional wall motion abnormalities. Diastolic function is normal for age. Right Ventricle Mildly increased right ventricular cavity size. There is normal right ventricular systolic function. Atria The left atrium is moderately dilated. Aortic Valve There is a normal trileaflet aortic valve. There is no aortic valve stenosis. There is trace (trivial) aortic valve regurgitation. 0.7 x 0.6 cm vegetation on the noncoronary cusp of the aortic valve. Mitral Valve Normal mitral valve structure and function. There is trace mitral valve regurgitation. There is no mitral valve stenosis. Pulmonic Valve The pulmonic valve is likely normal. There is trace pulmonic valve regurgitation. Tricuspid Valve Normal right atrial pressure. Mild pulmonary hypertension is present. Vegetation on the tricuspid valve which in some views appears elongated and dimensions are 3 x 1 cm. 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 Great Vessels All visible segments of the aorta are normal in size. The visualized portions of the pulmonary artery and branches are normal. Venous The inferior vena cava is normal in size and collapses greater than 50% with inspiration. Pericardium/Pleural There is no evidence of pericardial effusion. Measurements 2D Linear Measurements IVSd: 1.21 0.6-0.9/0.6-1.0 cm LVIDd: 4.94 3.9-5.3/4.2-5.9 cm LVIDd Index: 2.70 2.4-3.2/2.2-3.1 cm/m2 LVIDs: 2.86 2.0-3.6 cm LVPWd: 1.24 0.7-1.1 cm Ao Root: 3.30 2.1-3.5 cm LA Diam: 3.80 2.7-3.8/3.0-4.0 cm LAIDs Index: 2.08 1.5-2.3 cm/m2 LV Mass: 294.35 67-162/88-224 g LV Mass Index: 160.85 43-95/49-115 g/m2 LVOT Diam: 1.90 3.0+(-)1.3 cm Mitral Valve MV Pk E: 0.77 MV PK A: 0.99 MV Decel Time: 197.00 E/A: 0.80 E'Lateral: 13.10 E'Medial: 7.18 E/E' Med: 10.70 E/E' Lat: 5.90 PHT: 58.00 MVA PHT: 3.79 Decel [place]: 3.92 Aortic Valve AoV Pk Pipe: 2.03 AoV Mn Pipe: 1.38 AoV VTI: 0.39 AoV Pk Grad: 16.00 Aov Mn Grad: 9.00 HAYLEY Cont.VTI: 2.21 LVOT LVOT Pk Pipe: 1.67 LVOT Mn Pipe: 1.06 LVOT VTI: 0.30 LVOT Pk Grad: 11.00 LVOT Mn Grad: 6.00 LVOT Diam: 1.90 LVOT Area: 2.84 Diastolic Function MV Pk E: 0.77 MV Pk A: 0.99 E/A: 0.80 E'Medial: 7.18 E/E' Med: 10.70 E' Laterial: 13.10 E/E' Lat: 5.90 Tricuspid Valve TR Pk Pipe: 3.07 TR Pk Grad: 38.00 RA Press: 3.00 RVSP: 41.00 Great Vessels Aorta Ao Root-2D: 3.30 2.0-3.7 cm Ao Asc: 3.10 2.1-3.4 cm Pulmonary Valve PV Pk Pipe: 1.26 Peak PV Grad: 6.00 Updated in Other Vendor System with Status of Final Quan Cantu MD electronically signed on 09/21/2022 2:11:55 PM with status of Final
[2022-09-21 07:16] LABS: Alanine Aminotransferase 9 U/L (0-40); Albumin Level 2.3 g/dL (3.5-5.0); Alkaline Phosphatase 105 U/L (39-117); Anion Gap 20 (12-20); Aspartate Amino Transferase 14 U/L (5-37); Bilirubin Total 1.1 mg/dL (0.0-1.0); Blood Urea Nitrogen 103 mg/dL (9-16); Calcium 7.6 mg/dL (8.4-10.2); Carbon Dioxide 16 mmol/L (22-29); Chloride 103 mmol/L (96-108); Glucose Random 125 mg/dL (60-115); Potassium 3.7 mmol/L (3.3-5.1); Sodium 135 mmol/L (135-145); Total Protein 6.4 g/dL (6.5-8.0)
[2022-09-21 07:21] LABS: Creatinine Clr Calc Pharmacy 17.4; Estimated Glomerular Filt Rate 13
--- NOTE | 2022-09-21 07:51 | PHA.PROG ---
Admission Date/Time: September 21, 2022 04:12 Indication: Endocarditis Weight in k.9 kg Adjusted body weight in K.42 kg [place] body weight in K.1 kg Obesity Dosing Indication % IBW: 108% Serum Creatinine - Last 168 Hours 09/21/22 09/21/22 01:50 06:39 Creatinine 5.07 H* 4.69 H* Estimated CrCl and GFR - Last 168 Hours 09/21/22 09/21/22 01:50 06:39 Estim Creat Clear Calc 16.1 17.4 Estimated GFR 12 13 Vancomycin Loading Dose: 1750 mg Current Vancomycin Dosing Regimen: 500 mg Q24H Date and Time for next Vancomycin Level to be drawn: 09/22 @ 0600 Pharmacist Comments on Vancomycin Plan: Patient receive vancomycin loading dose 09/21 @ 0419 Random level will be drawn prior to maitenance dose to access for safety due to patient's poor renal function. Maintenance dose is pending to be start 09/22 @ 0800. Expected AUC 483 with a trough of 17.4. Pharmacy will monitor renal function daily. Sonia Schuler PharmD Vancomycin dosing will take advantage of [employer] as a clinical decision support tool that uses Bayesian modeling to calculate individual patient's pharmacokinetic parameters and forecast the patient's drug concentration time course with the target goal AUC 24 range of 400 - 600 mg/L/hr.
[2022-09-21 07:57] VITALS: BP 132/76; PULSE 89; RESP 20; TEMP 36.6; O2SAT 96
--- NOTE | 2022-09-21 08:56 | MHC.CM.PN ---
Addendum entered by Sydni Wall 09/21/22 16:00: THIS CM WAS ABLE TO REACH SISTERS GIFTY ([phone]) AND JOSE BAPTISTE ([phone]) PER HIS SISTERS, PT WAS JUST RECENTLY HOSPITALIZ[facility] THEN [facility]. HE WENT AMA AND ENDED UP AT [facility] , WENT AMA AGAIN. PER SISTERS, THEY BELIEVE HE HAS A PCP BUT UNSURE OF NAME. PT HAS BEEN COVID VAXXED AND SISTERS ALSO BELIEVE THEY MAY HAVE A COPY OF A HCP, WILL BRING IN IF CAN FIND. CM WILL CONTINUE TO FOLLOW Original Note: PT IS LETHARGIC AND UNABLE TO PARTICIPATE IN ASSESSMENT. UNABLE TO REACH CONTACT LISTED (MICHAEL ALVAREZ, MOTHER @ [phone]) PHONE IS OOS. PER CHART REVIEW , PT IS HOMELESS AND HAS HX IVDA. NO HCP ON FILE. PCP NOT LISTED. CM WILL CONTINUE TO FOLLOW AND RE-ASSESS WHEN ABLE TO PARTICIPATE.
--- NOTE | 2022-09-21 09:00 | PHA.MEDREC ---
Pharmacy Consult ? Medication Reconciliation Pharmacy has completed the medication reconciliation. Patient states he is only on hydroxyzine and seroquel which matches claim history. He doesn't remember when he last took medication at home.
--- NOTE | 2022-09-21 10:33 | P.EN_ITS ---
Event Note Date of Service: 09/21/22 Event Note: This is a 51-year-old male with polysubstance abuse including IV drug presents the hospital with complaints of shortness of breath found to have several abnormalities Acute multifocal pneumonia concerning for possible septic emboli in the setting of IV drug use and history of endocarditis IV vanco and zosyn follow cultures systolic murmur, acute endocarditis echo on 07/20/22 at [facility] [place] showed tricuspid valve vegetation IV vanco follow cultures echocardiogram pending TERRY. New onset last Creat at [facility] [place] (07/22/22) 0.9 renal us nephrology consultation IV fluids repeat creat this afternoon bladder scan opioid use disorder care team consulted DVT prophylaxis: Lovenox Attending Dr. French Given patient's need for IV antibiotics patient will require minimum 2 nights inpatient hospital stay for further management and monitor Time Spent With Patient Time: Total time managing care of this patient today ____ minutes.
[2022-09-21] MEDS: Acetaminophen 325 MG TABLET 650 MG PO ×3 (10:59→23:36)
[2022-09-21] MEDS: Piperacillin Sodium/Tazobactam 2.25 GM in 0.9 % Sodium Chloride 50 ML IV ×2 (10:59→17:32)
[2022-09-21 11:38] LABS: Creatinine Clr Calc Pharmacy 18.1; Estimated Glomerular Filt Rate 14
[2022-09-21 12:00] VITALS: BP 135/72; PULSE 85; RESP 20; TEMP 36.9; O2SAT 98
--- NOTE | 2022-09-21 12:16 | P.CONNP_ITS ---
History of Present Illness Reason for Consult Consult date: 09/22/22 Chief Complaint Chief complaint: pneumonia, endocarditis History of Present Illness Narrative: 51-year-old male no past medical history of opioid use disorder, history of endocarditis per records received from outside hospital presents today with complaints of shortness of breath, and generally not feeling well.? Patient is lethargic but wakes up and answers questions appropriately not in detail.? Patient states feeling not well, short of breath, no cough, states has midsternal chest pain that is sharp, ports generalized abdominal pain, no nausea or vomiting, no diarrhea, no urinary symptoms, no lower extremity edema.? Patient does endorse injecting IV drugs. History of endocarditis and he was on vancomycin in July 2022. He has underlying baseline chronic kidney disease At present is superimposed TERRY. Imaging including abdominal pelvic CT as well as chest CT shows moderately extensive regions of pulmonary consolidation and relatively nodular opacities bilaterally some of which demonstrate cavitation raising suspicion for infectious etiology including septic emboli.? Patient also has trace left pleural effusion, splenomegaly, mildly prominent renal pelvis sees with no obstructing stone, coronary artery calcification Review of Systems Constitutional: Reports anorexia, Reports chills and Reports weakness Eyes: Denies dry eyes Denies dizziness and Denies dry mouth Cardiovascular: Denies chest pain, Denies pedal edema and Denies lightheadedness Gastrointestinal: Denies bloating, Denies diarrhea and Denies nausea Musculoskeletal: Reports back pain and Reports arthralgias Skin/Breast: Denies dry skin, Denies pruritus and Denies lesions Denies dizziness, Denies memory loss, Denies convulsions, Denies paresthesias and Reports weakness Psychiatric: Denies memory loss PMFSH Past Medical History Medical History Endocarditis Opioid use disorder Surgical History Surgical History No pertinent past surgical history Social History Social History Household Members Other:: homeless Housing Other:: homeless Alcohol intake: never Patient Tobacco Use Status: Current everyday Tobacco user Smoked in Last 30 Days: No Use of substances other than those prescribed or required for medical reasons: Yes Substance Use Type: Crack/Cocaine and Heroin Substance Use Frequency: Chronic Longstanding Last Used Substance: Hours (ago) Last Used Substance Other:: 2 days ago Currently Displaying Signs/Symptoms of Drug Intoxication Withdrawal: No Advance Directives: No Advance Directives Information Provided: Yes Do you have thoughts of harming others: None Do you have a plan to hurt others: No Plan Recently lost weight without trying: No How much weight loss: Unsure Eating poorly because of decreased appetite: No Nutrition screen score: 2 Nutrition Risks: No Nutritional Risk Poor oral hygiene: No service: No Meds Allergies Allergy/AdvReac Type Severity Reaction Status Date / Time No Known Allergies Allergy Verified 03/04/22 04:53 Active Medications: Current Medications Acetaminophen (Acetaminophen 325 Mg Tablet) 650 mg PO Q6H PRN PRN Reason: Pain, Mild (Pain Scale 1-3) Last Admin: 09/21/22 10:59 Dose: 650 mg Docusate Sodium (Docusate Sodium 100 Mg Capsule) 100 mg PO DAILY PRN PRN Reason: Constipation Heparin Sodium (Porcine) (Heparin Sodium,Porcine 5,000 Unit/Ml Vial) 5,000 unit SUBCUT Q12H [facility] Last Admin: 09/21/22 05:56 Dose: 5,000 unit Lactated Ringer's (Lr) 1,000 mls @ 100 mls/hr IVCONT .Q10H [facility] Last Admin: 09/21/22 05:37 Dose: 100 mls/hr Piperacillin Sod/Tazobactam (Sod 2.25 gm/ Sodium Chloride) 50 mls @ 100 mls/hr IV Q8H [facility] Last Infusion: 09/21/22 11:32 Dose: Infused Vancomycin HCl 500 mg/ Sodium (Chloride) 110 mls @ 110 mls/hr IV ONCE ONE Stop: 09/22/22 08:59 Ondansetron HCl (Ondansetron Hcl 4 Mg/2 Ml Vial) 4 mg IVPUSH Q8H PRN PRN Reason: Nausea and Vomiting Pharmacy Consult (Consult Rx Vancomycin Dosing) 1 each MISCELLANE DAILY PRN PRN Reason: Consult order Home Medications Medication Instructions Recorded Confirmed Last Taken Type hydroxyzine pamoate 25 mg capsule 25 - 50 mg PO QID PRN Anxiety 09/21/22 09/21/22 Unknown History quetiapine 100 mg tablet 100 - 200 mg PO BEDTIME 09/21/22 09/21/22 Unknown History Physical Exam Vital Signs: Last Vital Signs Temp 98.4 F 09/21/22 12:00 Pulse 85 09/21/22 12:00 Resp 20 09/21/22 12:00 BP 135/72 09/21/22 12:00 Pulse Ox 98 09/21/22 12:00 O2 Del Method Room Air 09/21/22 12:00 BMI result Body Mass Index 24.8 Const Other: Ill-appearing. Neck is supple Lung: Air entry equal. Scattered rhonchi. Heart: S1,S2, normal. No rub. Systolic murmur present. Abd: Soft. BS + no tenderness NS : Alert.No asterexis Ext: No edema. Generalized wasting. No rash. Results Lab Results 09/21/22 01:50 09/21/22 11:13 Lab results: Chemistry 09/21/22 09/21/22 09/21/22 01:50 06:39 11:13 Sodium 134 L 135 Potassium 3.9 3.7 Carbon Dioxide 18 L 16 L BUN 109 H 103 H Creatinine 5.07 H* 4.69 H* 4.51 H* Calcium 8.2 L 7.6 L D Hematology 09/21/22 01:50 WBC 28.4 H Hgb 12.3 L Plt Count 187 Urinalysis 09/21/22 02:31 Urine Color Yellow Urine Appearance Cloudy Urine pH 5.0 Ur Specific [place] 1.010 Urine Protein 30 (1+) H Urine Glucose (UA) Negative Urine Ketones Negative Urine Blood Large (3+) H Urine Nitrite Negative Ur Leukocyte Esterase Moderate (2+) H Urine RBC >20 H Urine WBC 21-50 H Ur Squamous Epith Cells 6-10 Hyaline Casts 0-2 Assessment and Plan (1) TERRY (acute kidney injury): Status: Acute Plan 51-year-old man with acute kidney injury in setting of IV drug abuse and endocarditis. Differential diagnosis for acute kidney injury includes Acute glomerular nephritis or septic emboli in the setting of endocarditis Hypoperfusion. Interstitial nephritis. Tubular injury from vancomycin. Obstruction seems unlikely. Recommendations. Urine for sodium, protein, eosinophils and creatinine. Serum complement C3-C4 Anca. Agree with antibiotic coverage. Dose all medications for an EGFR of less than 30 mL/minute. Continue to avoid hypotension and nephrotoxins. Watch urine output closely. Keep intake more than output. No absolute indication for dialysis at this time. Based on the clinical course and serologies he may require a kidney biopsy. Time Spent With Patient Time: Total time managing care of this patient today ____ minutes. Procedures Date of Service Date of Service: 09/22/22
--- NOTE | 2022-09-21 13:12 | MHC.RECOVRN ---
Attempted to meet with pt in 487 after pt admitted for pneumonia and possible acute endocarditis. Pt laying in bed, drowsy, opens eyes but does not verbally respond when spoken to. T/w introduced self and role, explained options available in regards to MOUD and withdrawal management. Pt continues to not speak to t/w. Encouraged pt to notify RN if withdrawal symptoms occur. Discussed with RN as well as Lillian Null APRN. Will continue to follow.
[2022-09-21 13:39] LABS: Total Protein Urine Random 16 mg/dL (<12)
[2022-09-21 14:49] LABS: HBS Num1 47.73 mIU/mL (0-7.99); HBc Num1 0.15 S/CO (0.00-0.79); Hepatitis B Core Antibody Nonreactive (Nonreactive); Hepatitis B Surface Antigen Negative (Negative); ~Hepatitis B Surface Antibody REACTIVE (Nonreactive); ~Hepatitis C Antibody Reactive (Nonreactive)
[2022-09-21] MEDS: LORazepam 2 MG/ML VIAL 0.5 MG IVPUSH ×2 (16:50→23:36)
[2022-09-21] MEDS: Morphine Sulfate 2 MG/ML CARTRIDGE IVPUSH ×3 (16:50→23:36)
--- NOTE | 2022-09-21 18:58 | P.CONCA_ITS ---
History of Present Illness History of Present Illness Date of Service: 09/21/22 Requesting physician: Sruthi Webb Chief complaint: pneumonia, endocarditis Narrative: 51-year-old male presenting with chest pain on background of IV drug use and known tricuspid valve endocarditis diagnosed at [facility] recently. He left AMA from [facility] and reportedly from [facility]. He was diagnosed with septic pulmonary emboli. He had echoc ardiography performed today which is showing a 3 cm x 1 cm vegetation on the tricuspid valve with perforation of the valve and moderate to severe tricuspid valve regurgitation. Right ventricle is also mildly dilated. He has renal failure and is currently being followed by Nephrology and getting workup for that. He also has a small vegetation on the aortic valve noncoronary cusp. At the time of interview patient was significantly agitated and just screaming in pain and crying that he is in a lot of pain on the left side of his chest. He is saying it hurts when he breathes in. He kept repeating the same answers and was not coherent and history was quite limited. [facility] Past Medical History Medical History Endocarditis Opioid use disorder Surgical History Surgical History No pertinent past surgical history Social History Social History Household Members Other:: homeless Housing Other:: homeless Alcohol intake: never Patient Tobacco Use Status: Current everyday Tobacco user Smoked in Last 30 Days: No Use of substances other than those prescribed or required for medical reasons: Yes Substance Use Type: Crack/Cocaine and Heroin Substance Use Frequency: Chronic Longstanding Last Used Substance: Hours (ago) Last Used Substance Other:: 2 days ago Currently Displaying Signs/Symptoms of Drug Intoxication Withdrawal: No Advance Directives: No Advance Directives Information Provided: Yes Do you have thoughts of harming others: None Do you have a plan to hurt others: No Plan Recently lost weight without trying: No How much weight loss: Unsure Eating poorly because of decreased appetite: No Nutrition screen score: 2 Nutrition Risks: No Nutritional Risk Poor oral hygiene: No service: No Meds Allergies Allergy/AdvReac Type Severity Reaction Status Date / Time No Known Allergies Allergy Verified 03/04/22 04:53 Active Medications: Current Medications Acetaminophen (Acetaminophen 325 Mg Tablet) 650 mg PO Q6H PRN PRN Reason: Pain, Mild (Pain Scale 1-3) Last Admin: 09/21/22 17:33 Dose: 650 mg Docusate Sodium (Docusate Sodium 100 Mg Capsule) 100 mg PO DAILY PRN PRN Reason: Constipation Heparin Sodium (Porcine) (Heparin Sodium,Porcine 5,000 Unit/Ml Vial) 5,000 unit SUBCUT Q12H [facility] Last Admin: 09/21/22 17:31 Dose: 5,000 unit Lactated Ringer's (Lr) 1,000 mls @ 100 mls/hr IVCONT .Q10H [facility] Last Admin: 09/21/22 15:33 Dose: 100 mls/hr Piperacillin Sod/Tazobactam (Sod 2.25 gm/ Sodium Chloride) 50 mls @ 100 mls/hr IV Q8H [facility] Last Infusion: 09/21/22 18:50 Dose: Infused Vancomycin HCl 500 mg/ Sodium (Chloride) 110 mls @ 110 mls/hr IV ONCE ONE Stop: 09/22/22 08:59 Lorazepam (Lorazepam 2 Mg/Ml Vial) 0.5 mg IVPUSH Q6H PRN PRN Reason: anxiety Last Admin: 09/21/22 16:50 Dose: 0.5 mg Morphine Sulfate (Morphine Sulfate 2 Mg/Ml Cartridge) 2 mg IVPUSH Q3H PRN; Protocol PRN Reason: Pain, Mild (Pain Scale 1-3) Last Admin: 09/21/22 16:50 Dose: 2 mg Ondansetron HCl (Ondansetron Hcl 4 Mg/2 Ml Vial) 4 mg IVPUSH Q8H PRN PRN Reason: Nausea and Vomiting Pharmacy Consult (Consult Rx Vancomycin Dosing) 1 each MISCELLANE DAILY PRN PRN Reason: Consult order Home Medications Medication Instructions Recorded Confirmed Last Taken Type hydroxyzine pamoate 25 mg capsule 25 - 50 mg PO QID PRN Anxiety 09/21/22 09/21/22 Unknown History quetiapine 100 mg tablet 100 - 200 mg PO BEDTIME 09/21/22 09/21/22 Unknown History Physical Exam Vital Signs: Vital Signs: Last Vital Signs Temp 98.4 F 09/21/22 12:00 Pulse 85 09/21/22 12:00 Resp 20 09/21/22 12:00 BP 135/72 09/21/22 12:00 Pulse Ox 98 09/21/22 12:00 O2 Del Method Room Air 09/21/22 12:00 BMI result Body Mass Index 24.8 GENERAL APPEARANCE: Ill appearing. In pain and screaming. NECK: no carotid bruit, no jugular venous distention. SKIN: no suspicious lesions, warm and dry. HEART: Regular tachycardia. Systolic murmur left sternal border. LUNGS: clear to auscultation bilaterally. ABDOMEN: soft, nontender. EXTREMITIES: no edema. PERIPHERAL PULSES: equal. NEUROLOGIC: Confused, repeating same answer to all questions. Objective Labs and Meds 09/21/22 01:50 09/21/22 11:13 Lab results: Laboratory Results - last 24 hr 09/21/22 09/21/22 09/21/22 01:50 01:50 01:50 WBC 28.4 H RBC 4.44 L Hgb 12.3 L Hct 35.4 L MCV 79.7 L MCH 27.7 MCHC 34.7 RDW 18.6 H Plt Count 187 MPV 8.8 L Immature Gran % (Auto) 3.4 H Neut % (Auto) 88.1 H Lymph % (Auto) 3.7 L [place] % (Auto) 4.5 Eos % (Auto) 0.0 Baso % (Auto) 0.3 Lymph # (Auto) 1.0 L [place] # (Auto) 1.3 H Eos # (Auto) 0.0 Baso # (Auto) 0.1 Abs Immat Gran (auto) 0.96 H Absolute Neuts (auto) 25.0 H Absolute Nucleated RBC 0.000 Nucleated RBC % (auto) 0.0 Smear Tech's Comments VERIFIED Sodium 134 L Potassium 3.9 Chloride 99 Carbon Dioxide 18 L Anion Gap 21 H BUN 109 H Creatinine 5.07 H* Estim Creat Clear Calc 16.1 Estimated GFR 12 Random Glucose 128 H Lactic Acid Calcium 8.2 L Total Bilirubin 1.1 H Direct Bilirubin 0.5 AST 17 ALT 11 Alkaline Phosphatase 125 H Troponin I High Sens 3.0 B-Natriuretic Peptide Total Protein 7.6 Albumin 2.7 L Lipase 15 Urine Color Urine Appearance Urine pH Ur Specific [place] Urine Protein Urine Glucose (UA) Urine Ketones Urine Blood Urine Nitrite Ur Leukocyte Esterase Urine RBC Urine WBC Ur Squamous Epith Cells Urine Bacteria Hyaline Casts U Random Total Protein Ur Random Sodium Urine Creatinine Influenza Type A (PCR) Influenza Type B (PCR) RSV RNA Qual (PCR) SARS-CoV-2 RNA (RT-PCR) 09/21/22 09/21/22 09/21/22 02:27 02:29 02:29 WBC RBC Hgb Hct MCV MCH MCHC RDW Plt Count MPV Immature Gran % (Auto) Neut % (Auto) Lymph % (Auto) [place] % (Auto) Eos % (Auto) Baso % (Auto) Lymph # (Auto) [place] # (Auto) Eos # (Auto) Baso # (Auto) Abs Immat Gran (auto) Absolute Neuts (auto) Absolute Nucleated RBC Nucleated RBC % (auto) Smear Tech's Comments Sodium Potassium Chloride Carbon Dioxide Anion Gap BUN Creatinine Estim Creat Clear Calc Estimated GFR Random Glucose Lactic Acid 1.2 Calcium Total Bilirubin Direct Bilirubin AST ALT Alkaline Phosphatase Troponin I High Sens 4.1 B-Natriuretic Peptide 99 Total Protein Albumin Lipase Urine Color Urine Appearance Urine pH Ur Specific [place] Urine Protein Urine Glucose (UA) Urine Ketones Urine Blood Urine Nitrite Ur Leukocyte Esterase Urine RBC Urine WBC Ur Squamous Epith Cells Urine Bacteria Hyaline Casts U Random Total Protein Ur Random Sodium Urine Creatinine Influenza Type A (PCR) Influenza Type B (PCR) RSV RNA Qual (PCR) SARS-CoV-2 RNA (RT-PCR) 09/21/22 09/21/22 09/21/22 02:29 02:31 06:39 WBC RBC Hgb Hct MCV MCH MCHC RDW Plt Count MPV Immature Gran % (Auto) Neut % (Auto) Lymph % (Auto) [place] % (Auto) Eos % (Auto) Baso % (Auto) Lymph # (Auto) [place] # (Auto) Eos # (Auto) Baso # (Auto) Abs Immat Gran (auto) Absolute Neuts (auto) Absolute Nucleated RBC Nucleated RBC % (auto) Smear Tech's Comments Sodium 135 Potassium 3.7 Chloride 103 Carbon Dioxide 16 L Anion Gap 20 BUN 103 H Creatinine 4.69 H* Estim Creat Clear Calc 17.4 Estimated GFR 13 Random Glucose 125 H Lactic Acid Calcium 7.6 L D Total Bilirubin 1.1 H Direct Bilirubin AST 14 ALT 9 Alkaline Phosphatase 105 Troponin I High Sens B-Natriuretic Peptide Total Protein 6.4 L Albumin 2.3 L Lipase Urine Color Yellow Urine Appearance Cloudy Urine pH 5.0 Ur Specific [place] 1.010 Urine Protein 30 (1+) H Urine Glucose (UA) Negative Urine Ketones Negative Urine Blood Large (3+) H Urine Nitrite Negative Ur Leukocyte Esterase Moderate (2+) H Urine RBC >20 H Urine WBC 21-50 H Ur Squamous Epith Cells 6-10 Urine Bacteria None Seen Hyaline Casts 0-2 U Random Total Protein Ur Random Sodium Urine Creatinine Influenza Type A (PCR) NEGATIVE Influenza Type B (PCR) NEGATIVE RSV RNA Qual (PCR) NEGATIVE SARS-CoV-2 RNA (RT-PCR) NEGATIVE 09/21/22 09/21/22 11:13 13:15 WBC RBC Hgb Hct MCV MCH MCHC RDW Plt Count MPV Immature Gran % (Auto) Neut % (Auto) Lymph % (Auto) [place] % (Auto) Eos % (Auto) Baso % (Auto) Lymph # (Auto) [place] # (Auto) Eos # (Auto) Baso # (Auto) Abs Immat Gran (auto) Absolute Neuts (auto) Absolute Nucleated RBC Nucleated RBC % (auto) Smear Tech's Comments Sodium Potassium Chloride Carbon Dioxide Anion Gap BUN Creatinine 4.51 H* Estim Creat Clear Calc 18.1 Estimated GFR 14 Random Glucose Lactic Acid Calcium Total Bilirubin Direct Bilirubin AST ALT Alkaline Phosphatase Troponin I High Sens B-Natriuretic Peptide Total Protein Albumin Lipase Urine Color Urine Appearance Urine pH Ur Specific [place] Urine Protein Urine Glucose (UA) Urine Ketones Urine Blood Urine Nitrite Ur Leukocyte Esterase Urine RBC Urine WBC Ur Squamous Epith Cells Urine Bacteria Hyaline Casts U Random Total Protein 16 H Ur Random Sodium 23.0 Urine Creatinine 34.70 Influenza Type A (PCR) Influenza Type B (PCR) RSV RNA Qual (PCR) SARS-CoV-2 RNA (RT-PCR) Imaging Radiologist's impression: Impressions Chest X-Ray 09/21/22 02:07 IMPRESSION: Multifocal patchy bilateral opacities suspicious for multifocal pneumonia. Radiographic followup after treatment/resolution of symptoms is recommended. Abdomen/Pelvis CT 09/21/22 03:05 IMPRESSION: 1. Moderately extensive regions of pulmonary consolidation and relatively nodular opacities bilaterally, some of which demonstrate cavitations. This raises suspicion for an infectious etiology, including septic emboli. Malignant etiology is considered overall less likely, though imaging follow-up is recommended to assess for resolution. 2. Trace left pleural effusion. 3. Splenomegaly. 4. Mildly prominent renal pelvises, with no obstructing calculus seen. 5. Coronary artery calcifications. Correlation with cardiac risk factors is recommended. Chest CT 09/21/22 03:05 IMPRESSION: 1. Moderately extensive regions of pulmonary consolidation and relatively nodular opacities bilaterally, some of which demonstrate cavitations. This raises suspicion for an infectious etiology, including septic emboli. Malignant etiology is considered overall less likely, though imaging follow-up is recommended to assess for resolution. 2. Trace left pleural effusion. 3. Splenomegaly. 4. Mildly prominent renal pelvises, with no obstructing calculus seen. 5. Coronary artery calcifications. Correlation with cardiac risk factors is recommended. Renal Ultrasound 09/21/22 12:15 IMPRESSION: No evidence of stone or hydronephrosis. Increased renal parenchymal echogenicity bilaterally, suggesting medical renal disease. Assessment and Plan (1) Multifocal pneumonia: Status: Acute (2) Endocarditis: Status: Acute Plan [age] gentleman with background of opioid abuse and IV drug use who is presenting with septic pulmonary emboli from tricuspid valve endocarditis. He has a large vegetation on the tricuspid valve with leaflet perforation with moderate to severe tricuspid valve regurgitation. Right ventricle is dilated. He has multiple septic emboli with cavitation in the lungs. He is in pain due to septic emboli. He also is quite incoherent currently and unable to carry out a conversation. I think given his aortic valve vegetation it will be important to understand if he has any embolism to his brain. I think can start with a CT head. He has renal failure currently and is being worked up. He can have glomerulonephritis due to endocarditis. I think eventually he will need transesophageal echocardiography to assess the left-sided valve in more detail specially the mitral valve. I am not sure about his surgical candidacy currently is. Also he has been leaving against advise multiple times. As he becomes less delete this then we can have a discussion about doing a trans esophageal echocardiogram and CT surgery assessment. Thank you for allowing me to participate in the care of your patient. Please feel free to contact me if you have any questions. Time Spent With Patient Time: Total time managing care of this patient today ____ minutes. Procedures Date of Service Date of Service: 09/21/22
[2022-09-21 19:59] VITALS: BP 129/86; PULSE 81; RESP 14; TEMP 36.4; O2SAT 98
[2022-09-22] VITALS: BP 155/91; PULSE 81; RESP 20; TEMP 36.8; O2SAT 99
[2022-09-22] MEDS: Piperacillin Sodium/Tazobactam 2.25 GM in 0.9 % Sodium Chloride 50 ML IV ×3 (01:43→16:57)
[2022-09-22] MEDS: Morphine Sulfate 2 MG/ML CARTRIDGE IVPUSH ×2 (02:38→05:43)
[2022-09-22 03:05] VITALS: BP 161/95; PULSE 89; RESP 18; TEMP 36.9; O2SAT 98
[2022-09-22] MEDS: Lactated Ringers 1,000 ML 100 ML IVCONT ×2 (04:06→16:58)
[2022-09-22] MEDS: Heparin Sodium,Porcine 5,000 UNIT/ML VIAL 5000 UNIT SUBCUT ×2 (05:43→16:55)
[2022-09-22] MEDS: LORazepam 2 MG/ML VIAL 0.5 MG IVPUSH (05:43)
[2022-09-22 06:52] LABS: Vancomycin Random 4.5 mcg/mL (15-20)
[2022-09-22 07:07] LABS: Anion Gap 15 (12-20); Blood Urea Nitrogen 93 mg/dL (9-16); Calcium 7.8 mg/dL (8.4-10.2); Carbon Dioxide 18 mmol/L (22-29); Chloride 106 mmol/L (96-108); Creatinine Clr Calc Pharmacy 22.6; Estimated Glomerular Filt Rate 18; Glucose Random 140 mg/dL (60-115); Sodium 135 mmol/L (135-145)
--- NOTE | 2022-09-22 07:18 | HE.PHANOTE ---
Vancomycin Dosing Addendum Patients level came back low this morning at 4.5. Patient has only received a loading dose of 1750 mg thus far. This is because patients Scr was 5.07 then 4.69. This morning Scr is 3.61. Due to low level we will do 750 mg Q24H but will get a level after 1 dose of 750mg to ensure safety vs efficacy. Insight suggested 500 mg Q24H would be subtherapeutic. Predicted AUC is 576 mg/L/hr
[2022-09-22] MEDS: vancomycin HCL 750 MG in 0.9 % Sodium Chloride 250 ML 265 MG IV (07:25)
[2022-09-22 07:41] VITALS: BP 163/93; PULSE 91; RESP 20; TEMP 37.2; O2SAT 99
--- NOTE | 2022-09-22 08:58 | P.PNIM_ITS ---
Subjective Subjective Date of Service: 09/22/22 Review of Systems Follow up endocarditis Pain to entire body still with chest pain no nausea or vomiting Physical Exam Vital Signs: Vital Signs: Last Vital Signs Temp 98.9 F 09/22/22 07:41 Pulse 91 09/22/22 07:41 Resp 20 09/22/22 07:41 BP 163/93 H 09/22/22 07:41 Pulse Ox 99 09/22/22 07:41 O2 Del Method Room Air 09/22/22 07:41 BMI result Body Mass Index 24.8 Appearing in no acute distress poor dentitian lung sounds are clear to auscultation heart regular rate rhythm, clear S1, S2 positive bowel sounds, abdomen is soft, nontender neuro patient is alert x3, no focal deficits Objective Data Active Medications Acetaminophen (Acetaminophen 325 Mg Tablet) 650 mg PO Q6H PRN PRN Reason: Pain, Mild (Pain Scale 1-3) Last Admin: 09/21/22 23:36 Dose: 650 mg Documented By: RADHA Docusate Sodium (Docusate Sodium 100 Mg Capsule) 100 mg PO DAILY PRN PRN Reason: Constipation Heparin Sodium (Porcine) (Heparin Sodium,Porcine 5,000 Unit/Ml Vial) 5,000 unit SUBCUT Q12H [facility] Last Admin: 09/22/22 05:43 Dose: 5,000 unit Documented By: RADHA Lactated Ringer's (Lr) 1,000 mls @ 100 mls/hr IVCONT .Q10H [facility] Last Admin: 09/22/22 04:06 Dose: 100 mls/hr Documented By: RADHA Piperacillin Sod/Tazobactam (Sod 2.25 gm/ Sodium Chloride) 50 mls @ 100 mls/hr IV Q8H [facility] Last Infusion: 09/22/22 02:21 Dose: 0 mls/hr Documented By: RADHA Vancomycin HCl 750 mg/ Sodium (Chloride) 265 mls @ 265 mls/hr IV Q24H [facility] Last Infusion: 09/22/22 08:43 Dose: 0 mls/hr Documented By: KAREN Lorazepam (Lorazepam 2 Mg/Ml Vial) 1 mg IVPUSH Q6H PRN PRN Reason: anxiety Morphine Sulfate (Morphine Sulfate 2 Mg/Ml Cartridge) 3 mg IVPUSH Q3H PRN; Prot ocol PRN Reason: Pain, Mild (Pain Scale 1-3) Ondansetron HCl (Ondansetron Hcl 4 Mg/2 Ml Vial) 4 mg IVPUSH Q8H PRN PRN Reason: Nausea and Vomiting Oxycodone HCl (Oxycodone Hcl Immed Release 15 Mg Tablet) 15 mg PO Q4H PRN PRN Reason: withdrawal Pharmacy Consult (Consult Rx Vancomycin Dosing) 1 each MISCELLANE DAILY PRN PRN Reason: Consult order Labs 09/21/22 01:50 09/22/22 05:54 Labs: Laboratory Results - last 24 hr 09/21/22 09/21/22 09/21/22 11:13 13:12 13:15 Anion Gap Estim Creat Clear Calc 18.1 Estimated GFR 14 Random Glucose Calcium U Random Total Protein 16 H Ur Random Sodium 23.0 Urine Creatinine 34.70 Random Vancomycin Hep Bs Antigen Negative Hep Bs Antibody REACTIVE Hep B Core Total Ab Nonreactive Hepatitis C Ab (EIA) Reactive H 09/22/22 09/22/22 09/22/22 05:54 05:54 05:54 Anion Gap 15 Estim Creat Clear Calc Cancelled 22.6 Estimated GFR Cancelled 18 Random Glucose 140 H Calcium 7.8 L U Random Total Protein Ur Random Sodium Urine Creatinine Random Vancomycin 4.5 L Hep Bs Antigen Hep Bs Antibody Hep B Core Total Ab Hepatitis C Ab (EIA) Microbiology Microbiology Results: Microbiology 09/21/22 Unknown Urine Culture - Preliminary Urine clean catch - Urine foster top Culture in progress. 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 clearing Normal head CT Acute multifocal pneumonia concerning for septic emboli in the setting of IV drug use and history of endocarditis continue IV vanco and zosyn renally dosed systolic murmur, acute endocarditis echo on 07/20/22 at [facility] showed tricuspid valve vegetation IV vanco follow cultures echocardiogram now showing tricuspid and aortic valve vegetation and tear on tricuspid valve (will need valve repair when clean and willing to go through surgical procedure) TERRY. trending down last Creat at [facility] (07/22/22) 0.9 IV fluids diff include septic emboli vs hypoperfusion, renal us neg for obstruction nephro following>depending on clinical course and renal response may need renal biopsy opioid use disorder with withdrawal unable to start methadone d/t prolonged QT increase morphine to 3mg Q3h prn Oxycodone 15mg Q4h prn Ativan 1mg Q6H prn addiction team following DVT prophylaxis: Sonia Attending Dr. Manolo FLORES discussed with cardiology, plan to tx to [facility] for Angiovac to debulk vegetations continue inpatient hospital stay for further management and monitor, requiring DUSTY and IV antibiotics Time Spent With Patient Time: Total time managing care of this patient today ____ minutes. Quality Stroke Does the patient have a stroke diagnosis?: No VTE Prior VTE?: No VTE Risk Level:: Medical - moderate - high VTE Device Contraindication: Treatment Not Indicated VTE Drug Contraindication: N/A - Med Ordered
[2022-09-22] MEDS: Morphine Sulfate 2 MG/ML CARTRIDGE 3 MG IVPUSH ×3 (09:19→15:50)
[2022-09-22] MEDS: Acetaminophen 325 MG TABLET 650 MG PO ×2 (09:26→15:51)
[2022-09-22] MEDS: LORazepam 2 MG/ML VIAL 1 MG IVPUSH (09:26)
--- NOTE | 2022-09-22 09:48 | PM.PNNEP ---
Subjective Subjective Date of Service: 10/21/22 Interval history: Events noted Still in pain Physical Exam Vital Signs: Vital Signs: Last Vital Signs Temp 98.9 F 09/22/22 07:41 Pulse 91 09/22/22 07:41 Resp 20 09/22/22 07:41 BP 163/93 H 09/22/22 07:41 Pulse Ox 99 09/22/22 07:41 O2 Del Method Room Air 09/22/22 07:41 BMI result Body Mass Index 24.8 Const: Other: Ill-appearing. Neck is supple Lung: Air entry equal. Scattered rhonchi. Heart: S1,S2, normal. No rub. Systolic murmur present. Abd: Soft. BS + no tenderness NS : Alert.No asterexis Ext: No edema. Generalized wasting. No rash. Objective Data Labs 09/21/22 01:50 09/22/22 05:54 Labs: Laboratory Results - last 24 hr 09/21/22 09/21/22 09/21/22 11:13 13:12 13:15 Sodium Potassium Chloride Carbon Dioxide Anion Gap BUN Creatinine 4.51 H* Estim Creat Clear Calc 18.1 Estimated GFR 14 Random Glucose Calcium U Random Total Protein 16 H Ur Random Sodium 23.0 Urine Creatinine 34.70 Random Vancomycin Hep Bs Antigen Negative Hep Bs Antibody REACTIVE Hep B Core Total Ab Nonreactive Hepatitis C Ab (EIA) Reactive H 09/22/22 09/22/22 09/22/22 05:54 05:54 05:54 Sodium 135 Potassium 4.0 Chloride 106 Carbon Dioxide 18 L Anion Gap 15 BUN 93 H Creatinine Cancelled 3.61 H Estim Creat Clear Calc Cancelled 22.6 Estimated GFR Cancelled 18 Random Glucose 140 H Calcium 7.8 L U Random Total Protein Ur Random Sodium Urine Creatinine Random Vancomycin 4.5 L Hep Bs Antigen Hep Bs Antibody Hep B Core Total Ab Hepatitis C Ab (EIA) Microbiology Microbiology Results: Microbiology 09/21/22 Unknown Urine clean catch - Urine foster top Urine Culture - Preliminary Culture in progress. 09/21/22 02:29 Blood - Venous Blood Culture - Preliminary Prelim: GPC Gram Stain only 09/21/22 02:28 Blood - Venous Blood Culture - Preliminary Prelim: GPC Gram Stain only Procedures Date of Service Date of Service: 10/21/22 Assessment & Plan Assessment and plan (1) TERRY (acute kidney injury): Status: Acute Plan 51-year-old man with acute kidney injury in setting of IV drug abuse and endocarditis. Differential diagnosis for acute kidney injury includes Acute glomerular nephritis or septic emboli in the setting of endocarditis Hypoperfusion. Interstitial nephritis. Tubular injury from vancomycin. Obstruction seems unlikely. Urine Pro: Cr =0.5 Recommendations. Serum complement C3-C4 Anca pending Agree with antibiotic coverage. Dose all medications for an EGFR of less than 30 mL/minute. Continue to avoid hypotension and nephrotoxins. Watch urine output closely. Keep intake more than output. No absolute indication for dialysis at this time. Based on the clinical course and serologies he may require a kidney biopsy. Await ECHO Time Spent With Patient Time: Total time managing care of this patient today ____ minutes. Progress Note: Quality Stroke Does the patient have a stroke diagnosis?: No
[2022-09-22 12:00] VITALS: BP 154/89; PULSE 92; RESP 20; TEMP 36.3; O2SAT 98
--- NOTE | 2022-09-22 12:58 | P.PNCA_ITS ---
Subjective Subjective Date of Service: 09/22/22 Interval history: Seen examined at bedside. Able to carry a conversation. Saying that he will not be using any drugs. Explained to him that he has serious cardiovascular issues going on with endocarditis involving the tricuspid valve and aortic valve. Complaining of left-sided chest pain and it appears he has been getting morphine. Physical Exam Vital Signs: Last Vital Signs Temp 97.3 F 09/22/22 12:00 Pulse 92 09/22/22 12:00 Resp 20 09/22/22 12:00 BP 154/89 H 09/22/22 12:00 Pulse Ox 98 09/22/22 12:00 O2 Del Method Room Air 09/22/22 12:00 BMI result Body Mass Index 24.8 GENERAL APPEARANCE: Ill appearing. NECK: no carotid bruit, no jugular venous distention. SKIN: no suspicious lesions, warm and dry. HEART: Regular rate and rhythm. Systolic murmur left sternal border. LUNGS: clear to auscultation bilaterally. ABDOMEN: soft, nontender. EXTREMITIES: no edema. PERIPHERAL PULSES: equal. NEUROLOGIC: More coherent today. Able to carry out a conversation. Moving all extremities. Grossly nonfocal. Objective Labs and Meds 09/21/22 01:50 09/22/22 05:54 Lab results: Laboratory Results - last 24 hr 09/21/22 09/21/22 09/22/22 13:12 13:15 05:54 Sodium Potassium Chloride Carbon Dioxide Anion Gap BUN Creatinine Cancelled Estim Creat Clear Calc Cancelled Estimated GFR Cancelled Random Glucose Calcium U Random Total Protein 16 H Ur Random Sodium 23.0 Urine Creatinine 34.70 Random Vancomycin Hep Bs Antigen Negative Hep Bs Antibody REACTIVE Hep B Core Total Ab Nonreactive Hepatitis C Ab (EIA) Reactive H 09/22/22 09/22/22 05:54 05:54 Sodium 135 Potassium 4.0 Chloride 106 Carbon Dioxide 18 L Anion Gap 15 BUN 93 H Creatinine 3.61 H Estim Creat Clear Calc 22.6 Estimated GFR 18 Random Glucose 140 H Calcium 7.8 L U Random Total Protein Ur Random Sodium Urine Creatinine Random Vancomycin 4.5 L Hep Bs Antigen Hep Bs Antibody Hep B Core Total Ab Hepatitis C Ab (EIA) Imaging Radiologist's impression: Impressions Renal Ultrasound 09/21/22 12:15 IMPRESSION: No evidence of stone or hydronephrosis. Increased renal parenchymal echogenicity bilaterally, suggesting medical renal disease. Head CT 09/22/22 09:15 IMPRESSION: Slightly limited exam due to motion. No abnormality seen. Progress Note: A&P Assessment and plan (1) Endocarditis: Status: Acute (2) Multifocal pneumonia: Status: Acute (3) TERRY (acute kidney injury): Status: Acute Plan [age] year gentleman with history of IV drug abuse presenting with multifocal pneumonia due to septic emboli from tricuspid valve endocarditis. He has a long vegetation on the tricuspid valve which is approximately 3 cm x 1 cm. He also has perforation of the tricuspid valve leaflet with moderate to severe tricuspid valve regurgitation. Right ventricle is mildly dilated but systolic function is normal. He also has a 0.7 x 0.6 cm vegetation on the noncoronary cusp of the aortic valve. CT head did not show any concerns for embolic phenomenon. He has renal failure and is being worked up for that and as per Nephrology will require a biopsy. He has a large vegetation on the tricuspid valve with perforation of the tricuspid valve leaflet. Discussed about doing a DUSTY which we will arrange soon. He is agreeable for that. I am also going to discuss the case with cardiothoracic surgery at [facility] to see whether he should be transferred for further assessment. I have explained to him that he should not leave the hospital like he has done before and he is agreeable to stay in the hospital at this stage. Thank you for allowing me to participate in the care of your patient. Please feel free to contact me if you have any questions. Time Spent With Patient Time: Total time managing care of this patient today ____ minutes. Progress Note: Quality Stroke Does the patient have a stroke diagnosis?: No Procedures Date of Service Date of Service: 09/22/22
--- NOTE | 2022-09-22 14:04 | PM.DS ---
DS: Providers Provider Date of Service: 09/22/22 Date of admission: 09/21/22 04:12 Primary care physician: Unknown Physician Consults: 09/21/22 06:38 Consult to Care Team Routine Comment: Reason for consultation: Opioid use ds 09/21/22 10:45 Consult to Nephrology Routine Consulting Provider: Henry Ga Reason for consultation: john DS: Diagnosis Discharge Diagnosis (1) Endocarditis: Status: Acute (2) Multifocal pneumonia: Status: Acute (3) JOHN (acute kidney injury): Status: Acute DS: Summary Hospital Course Hospital Course: History and physical as per admitting provider 51-year-old male no past medical history of opioid use disorder, history of endocarditis per records received from outside hospital presents today with complaints of shortness of breath, and generally not feeling well.? Patient is lethargic but wakes up and answers questions appropriately not in detail.? Patient states feeling not well, short of breath, no cough, states has midsternal chest pain that is sharp, ports generalized abdominal pain, no nausea or vomiting, no diarrhea, no urinary symptoms, no lower extremity edema.? Patient does endorse injecting IV drugs. On arrival to the ED patient found to be hemodynamically stable.Labs are significant for WBC count of 28.4, hemoglobin of 12.3, hematocrit 35, left shift, creatinine of 5.07 with a baseline of around 1.1, UA positive for leukocyte Estrace and WBC. Imaging including abdominal pelvic CT as well as chest CT shows moderately extensive regions of pulmonary consolidation and relatively nodular opacities bilaterally some of which demonstrate cavitation raising suspicion for infectious etiology including septic emboli.? Patient also has trace left pleural effusion, splenomegaly, mildly prominent renal pelvis sees with no obstructing stone, coronary artery calcification. Patient started on IV antibiotics and will be admitted for further management . Hospital Course: 51-year-old man admitted with shortness of breath and chest pain. He has a history of IV drug use and is currently homeless. He has history of endocarditis with echocardiogram in July of 2022 at [facility] showing tricuspid valve vegetation. Echocardiogram at [facility] now shows vegetation on the tricuspid and aortic valves as well as a perforation of the tricuspid valve leaflet with moderate to severe tricuspid regurgitation. Secondary to this he was found to also have septic emboli on chest CT with moderately extensive regions of pulmonary consolidation and opacities, trace left pleural effusion, splenomegaly. Because of some delirium he was having a head CT was obtained which was normal. He was found to have acute renal failure which was new from July of 2022. His creatinine at [facility] at that time was 0.9. He presented to [facility] with creatinine of 4.69 that did respond to IV fluids and trended down to 3.61. He was seen and evaluated by Nephrology. Differential diagnosis include acute glomerular nephritis versus septic emboli versus hypoperfusion versus interstitial nephritis. Obstruction was ruled out with renal ultrasound. Recommendation from Nephrology was checking serum complement C3 and C4 as well as ANCA, renally dose medications, follow urine output. No indication at this time for dialysis or kidney biopsy unless renal function does not respond to current treatment. Endocarditis> he is currently on IV vancomycin multifocal pneumonia>he is currently on vancomycin and Zosyn opiate use disorder with withdrawal> he is currently on morphine 3 mg every 3 hours as needed, oxycodone 15 mg every 4 hours as needed and Ativan 1 mg every 6 hours as needed. Methadone avoided due to elevated QTC Plan is for transfer to [facility] for AngioVac to debulk tricuspid and aortic vegetations Time Spent with Patient Time attestation: Total time managing care of this patient today ____ minutes. Discharge coordination time: Greater than 30 minutes Quality: Safe Use of Opioids Does Pt have an Active Cancer Diagnosis on the Problem List?: No Quality: Stroke Does the patient have a stroke diagnosis?: No Physical Exam Vital Signs: Vital Signs: Last Vital Signs Temp 97.3 F 09/22/22 12:00 Pulse 92 09/22/22 12:00 Resp 20 09/22/22 12:00 BP 154/89 H 09/22/22 12:00 Pulse Ox 98 09/22/22 12:00 O2 Del Method Room Air 09/22/22 12:00 BMI result Body Mass Index 24.8 diffuse body pain, withdrawal symptoms head is normocephalic atraumatic eyes pupils are PERRLA sclera is anicteric mouth throat mucous membranes are intact and moist neck is supple no lymphadenopathy, no JVD noted lung sounds are clear to auscultation heart regular rate rhythm, clear S1, S2 positive bowel sounds, abdomen is soft, nontender neuro patient is alert x3, no focal deficits DS: Data Data Completed and Pending Labs on day of discharge: Laboratory Results - last 24 hr 09/21/22 09/22/22 09/22/22 13:12 05:54 05:54 Sodium Potassium Chloride Carbon Dioxide Anion Gap BUN Creatinine Cancelled Estim Creat Clear Calc Cancelled Estimated GFR Cancelled Random Glucose Calcium Random Vancomycin 4.5 L Hep Bs Antigen Negative Hep Bs Antibody REACTIVE Hep B Core Total Ab Nonreactive Hepatitis C Ab (EIA) Reactive H 09/22/22 05:54 Sodium 135 Potassium 4.0 Chloride 106 Carbon Dioxide 18 L Anion Gap 15 BUN 93 H Creatinine 3.61 H Estim Creat Clear Calc 22.6 Estimated GFR 18 Random Glucose 140 H Calcium 7.8 L Random Vancomycin Hep Bs Antigen Hep Bs Antibody Hep B Core Total Ab Hepatitis C Ab (EIA) Preliminary micro results at discharge 09/21/22 02:29 Blood Culture - Preliminary Blood - Venous Staphylococcus species 09/21/22 02:28 Blood Culture - Preliminary Blood - Venous Staphylococcus species 09/21/22 Unknown Urine Culture - Preliminary Urine clean catch - Urine foster top Culture in progress. Discharge Plan Discharge Anticipated Discharge Date/Time: 09/22/22 14:16 Patient Disposition: [facility] Discharge Diagnosis: Endocarditis JOHN Delirium Septic emboli Community-acquired pneumonia Discharge Medications: New lorazepam 2 mg/mL Solution 1 mg IVPUSH Q6H PRN (Reason: anxiety ) Qty: 10 0RF oxycodone 15 mg Tablet 15 mg PO Q4H PRN (Reason: withdrawal) Qty: 10 0RF Rx Instructions: Partial Fill upon patient request. morphine 2 mg/mL Syringe 3 mg IVPUSH Q3H PRN (Reason: Pain, Mild (Pain Scale 1-3)) Qty: 10 0RF Protocol: Hold for RR < HOLD and contact provider for RR < (bpm): 12 Rx Instructions: Partial Fill upon patient request. vancomycin in 0.9 % sodium chl 750 mg/250 mL solution 750 mg IV Q24H Qty: 3000 0RF Zosyn in dextrose (iso-osm) 2.25 gram/50 mL piggyback 2.25 g IV Q12H Qty: 1200 0RF Continued quetiapine 100 mg tablet 100 - 200 mg PO BEDTIME hydroxyzine pamoate 25 mg capsule 25 - 50 mg PO QID PRN (Reason: Anxiety) Discharge Orders: Discharge Order (Routine); Ordered 05/16/23 Ordered By: Sruthi Webb Diet: Advance to usual diet Activity on Discharge: As tolerated Stand Alone Forms: Patient Portal Discharge page Care Plan Goals: Continue antibiotic coverage that was started 09/21/22: Vancomycin Zosyn Opiate coverage for withdrawals: Morphine and oxycodone Health Concerns: Endocarditis JOHN Delirium Septic emboli Community-acquired pneumonia Plan of Treatment: Plan is for transfer to [facility] for AngioVac to debulk tricuspid and aortic vegetations Assessment: See discharge summary
--- NOTE | 2022-09-22 14:31 | HO.ADDICTCON ---
History of Present Illness Date of Service: 09/22/2022 Chief Complaint: pneumonia, endocarditis Reason for Consult: EKATERINA HPI Narrative: Patient is a 51 year old male with history of EKATERINA currently medically admitted with endocarditis and septic emboli. Patient seen in room 487, appearing very uncomfortable, groaning and mumbling. 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 Has been receiving morphine q 3 hours. Unable to obtain any EKATERINA history. Review of Systems Review of Systems Yes Unobtainable due to mental condition and Unobtainable due to mental status Diagnostics Vital Signs (24Hr): Vital Signs - 24 hr 09/21/22 19:59 09/22/22 00:00 09/22/22 03:05 Temperature 97.5 F 98.3 F 98.4 F Pulse Rate 81 81 89 Respiratory Rate 14 20 18 Blood Pressure 129/86 155/91 H 161/95 H Pulse Oximetry 98 99 98 Oxygen Delivery Method Room Air Room Air Room Air 09/22/22 07:41 09/22/22 12:00 Temperature 98.9 F 97.3 F Pulse Rate 91 92 Respiratory Rate 20 20 Blood Pressure 163/93 H 154/89 H Pulse Oximetry 99 98 Oxygen Delivery Method Room Air Room Air BMI result Body Mass Index 24.8 Labs 09/21/22 01:50 09/22/22 05:54 Labs: Laboratory Results - last 48 hr 09/21/22 09/21/22 09/21/22 01:50 01:50 01:50 WBC 28.4 H RBC 4.44 L Hgb 12.3 L Hct 35.4 L MCV 79.7 L MCH 27.7 MCHC 34.7 RDW 18.6 H Plt Count 187 MPV 8.8 L Immature Gran % (Auto) 3.4 H Neut % (Auto) 88.1 H Lymph % (Auto) 3.7 L [place] % (Auto) 4.5 Eos % (Auto) 0.0 Baso % (Auto) 0.3 Lymph # (Auto) 1.0 L [place] # (Auto) 1.3 H Eos # (Auto) 0.0 Baso # (Auto) 0.1 Abs Immat Gran (auto) 0.96 H Absolute Neuts (auto) 25.0 H Absolute Nucleated RBC 0.000 Nucleated RBC % (auto) 0.0 Smear Tech's Comments VERIFIED Sodium 134 L Potassium 3.9 Chloride 99 Carbon Dioxide 18 L Anion Gap 21 H BUN 109 H Creatinine 5.07 H* Estim Creat Clear Calc 16.1 Estimated GFR 12 Random Glucose 128 H Lactic Acid Calcium 8.2 L Total Bilirubin 1.1 H Direct Bilirubin 0.5 AST 17 ALT 11 Alkaline Phosphatase 125 H Troponin I High Sens 3.0 B-Natriuretic Peptide Total Protein 7.6 Albumin 2.7 L Lipase 15 Urine Color Urine Appearance Urine pH Ur Specific Green Urine Protein Urine Glucose (UA) Urine Ketones Urine Blood Urine Nitrite Ur Leukocyte Esterase Urine RBC Urine WBC Ur Squamous Epith Cells Urine Bacteria Hyaline Casts U Random Total Protein Ur Random Sodium Urine Creatinine Random Vancomycin Hep Bs Antigen Hep Bs Antibody Hep B Core Total Ab Hepatitis C Ab (EIA) Influenza Type A (PCR) Influenza Type B (PCR) RSV RNA Qual (PCR) SARS-CoV-2 RNA (RT-PCR) 09/21/22 09/21/22 09/21/22 02:27 02:29 02:29 WBC RBC Hgb Hct MCV MCH MCHC RDW Plt Count MPV Immature Gran % (Auto) Neut % (Auto) Lymph % (Auto) [place] % (Auto) Eos % (Auto) Baso % (Auto) Lymph # (Auto) [place] # (Auto) Eos # (Auto) Baso # (Auto) Abs Immat Gran (auto) Absolute Neuts (auto) Absolute Nucleated RBC Nucleated RBC % (auto) Smear Tech's Comments Sodium Potassium Chloride Carbon Dioxide Anion Gap BUN Creatinine Estim Creat Clear Calc Estimated GFR Random Glucose Lactic Acid 1.2 Calcium Total Bilirubin Direct Bilirubin AST ALT Alkaline Phosphatase Troponin I High Sens 4.1 B-Natriuretic Peptide 99 Total Protein Albumin Lipase Urine Color Urine Appearance Urine pH Ur Specific Green Urine Protein Urine Glucose (UA) Urine Ketones Urine Blood Urine Nitrite Ur Leukocyte Esterase Urine RBC Urine WBC Ur Squamous Epith Cells Urine Bacteria Hyaline Casts U Random Total Protein Ur Random Sodium Urine Creatinine Random Vancomycin Hep Bs Antigen Hep Bs Antibody Hep B Core Total Ab Hepatitis C Ab (EIA) Influenza Type A (PCR) Influenza Type B (PCR) RSV RNA Qual (PCR) SARS-CoV-2 RNA (RT-PCR) 09/21/22 09/21/22 09/21/22 02:29 02:31 06:39 WBC RBC Hgb Hct MCV MCH MCHC RDW Plt Count MPV Immature Gran % (Auto) Neut % (Auto) Lymph % (Auto) [place] % (Auto) Eos % (Auto) Baso % (Auto) Lymph # (Auto) [place] # (Auto) Eos # (Auto) Baso # (Auto) Abs Immat Gran (auto) Absolute Neuts (auto) Absolute Nucleated RBC Nucleated RBC % (auto) Smear Tech's Comments Sodium 135 Potassium 3.7 Chloride 103 Carbon Dioxide 16 L Anion Gap 20 BUN 103 H Creatinine 4.69 H* Estim Creat Clear Calc 17.4 Estimated GFR 13 Random Glucose 125 H Lactic Acid Calcium 7.6 L D Total Bilirubin 1.1 H Direct Bilirubin AST 14 ALT 9 Alkaline Phosphatase 105 Troponin I High Sens B-Natriuretic Peptide Total Protein 6.4 L Albumin 2.3 L Lipase Urine Color Yellow Urine Appearance Cloudy Urine pH 5.0 Ur Specific Green 1.010 Urine Protein 30 (1+) H Urine Glucose (UA) Negative Urine Ketones Negative Urine Blood Large (3+) H Urine Nitrite Negative Ur Leukocyte Esterase Moderate (2+) H Urine RBC >20 H Urine WBC 21-50 H Ur Squamous Epith Cells 6-10 Urine Bacteria None Seen Hyaline Casts 0-2 U Random Total Protein Ur Random Sodium Urine Creatinine Random Vancomycin Hep Bs Antigen Hep Bs Antibody Hep B Core Total Ab Hepatitis C Ab (EIA) Influenza Type A (PCR) NEGATIVE Influenza Type B (PCR) NEGATIVE RSV RNA Qual (PCR) NEGATIVE SARS-CoV-2 RNA (RT-PCR) NEGATIVE 09/21/22 09/21/22 09/21/22 11:13 13:12 13:15 WBC RBC Hgb Hct MCV MCH MCHC RDW Plt Count MPV Immature Gran % (Auto) Neut % (Auto) Lymph % (Auto) [place] % (Auto) Eos % (Auto) Baso % (Auto) Lymph # (Auto) [place] # (Auto) Eos # (Auto) Baso # (Auto) Abs Immat Gran (auto) Absolute Neuts (auto) Absolute Nucleated RBC Nucleated RBC % (auto) Smear Tech's Comments Sodium Potassium Chloride Carbon Dioxide Anion Gap BUN Creatinine 4.51 H* Estim Creat Clear Calc 18.1 Estimated GFR 14 Random Glucose Lactic Acid Calcium Total Bilirubin Direct Bilirubin AST ALT Alkaline Phosphatase Troponin I High Sens B-Natriuretic Peptide Total Protein Albumin Lipase Urine Color Urine Appearance Urine pH Ur Specific Green Urine Protein Urine Glucose (UA) Urine Ketones Urine Blood Urine Nitrite Ur Leukocyte Esterase Urine RBC Urine WBC Ur Squamous Epith Cells Urine Bacteria Hyaline Casts U Random Total Protein 16 H Ur Random Sodium 23.0 Urine Creatinine 34.70 Random Vancomycin Hep Bs Antigen Negative Hep Bs Antibody REACTIVE Hep B Core Total Ab Nonreactive Hepatitis C Ab (EIA) Reactive H Influenza Type A (PCR) Influenza Type B (PCR) RSV RNA Qual (PCR) SARS-CoV-2 RNA (RT-PCR) 09/22/22 09/22/22 09/22/22 05:54 05:54 05:54 WBC RBC Hgb Hct MCV MCH MCHC RDW Plt Count MPV Immature Gran % (Auto) Neut % (Auto) Lymph % (Auto) [place] % (Auto) Eos % (Auto) Baso % (Auto) Lymph # (Auto) [place] # (Auto) Eos # (Auto) Baso # (Auto) Abs Immat Gran (auto) Absolute Neuts (auto) Absolute Nucleated RBC Nucleated RBC % (auto) Smear Tech's Comments Sodium 135 Potassium 4.0 Chloride 106 Carbon Dioxide 18 L Anion Gap 15 BUN 93 H Creatinine Cancelled 3.61 H Estim Creat Clear Calc Cancelled 22.6 Estimated GFR Cancelled 18 Random Glucose 140 H Lactic Acid Calcium 7.8 L Total Bilirubin Direct Bilirubin AST ALT Alkaline Phosphatase Troponin I High Sens B-Natriuretic Peptide Total Protein Albumin Lipase Urine Color Urine Appearance Urine pH Ur Specific Green Urine Protein Urine Glucose (UA) Urine Ketones Urine Blood Urine Nitrite Ur Leukocyte Esterase Urine RBC Urine WBC Ur Squamous Epith Cells Urine Bacteria Hyaline Casts U Random Total Protein Ur Random Sodium Urine Creatinine Random Vancomycin 4.5 L Hep Bs Antigen Hep Bs Antibody Hep B Core Total Ab Hepatitis C Ab (EIA) Influenza Type A (PCR) Influenza Type B (PCR) RSV RNA Qual (PCR) SARS-CoV-2 RNA (RT-PCR) Imaging Radiology Impressions: ITS Impressions Chest X-Ray 09/21/22 02:07 IMPRESSION: Multifocal patchy bilateral opacities suspicious for multifocal pneumonia. Radiographic followup after treatment/resolution of symptoms is recommended. Abdomen/Pelvis CT 09/21/22 03:05 IMPRESSION: 1. Moderately extensive regions of pulmonary consolidation and relatively nodular opacities bilaterally, some of which demonstrate cavitations. This raises suspicion for an infectious etiology, including septic emboli. Malignant etiology is considered overall less likely, though imaging follow-up is recommended to assess for resolution. 2. Trace left pleural effusion. 3. Splenomegaly. 4. Mildly prominent renal pelvises, with no obstructing calculus seen. 5. Coronary artery calcifications. Correlation with cardiac risk factors is recommended. Chest CT 09/21/22 03:05 IMPRESSION: 1. Moderately extensive regions of pulmonary consolidation and relatively nodular opacities bilaterally, some of which demonstrate cavitations. This raises suspicion for an infectious etiology, including septic emboli. Malignant etiology is considered overall less likely, though imaging follow-up is recommended to assess for resolution. 2. Trace left pleural effusion. 3. Splenomegaly. 4. Mildly prominent renal pelvises, with no obstructing calculus seen. 5. Coronary artery calcifications. Correlation with cardiac risk factors is recommended. Renal Ultrasound 09/21/22 12:15 IMPRESSION: No evidence of stone or hydronephrosis. Increased renal parenchymal echogenicity bilaterally, suggesting medical renal disease. Head CT 09/22/22 09:15 IMPRESSION: Slightly limited exam due to motion. No abnormality seen. Mental Status Exam Mental Status Exam Level of Consciousness: Restless Medications Medications Current Medications Acetaminophen (Acetaminophen 325 Mg Tablet) 650 mg PO Q6H PRN PRN Reason: Pain, Mild (Pain Scale 1-3) Last Admin: 09/22/22 09:26 Dose: 650 mg Docusate Sodium (Docusate Sodium 100 Mg Capsule) 100 mg PO DAILY PRN PRN Reason: Constipation Heparin Sodium (Porcine) (Heparin Sodium,Porcine 5,000 Unit/Ml Vial) 5,000 unit SUBCUT Q12H [facility] Last Admin: 09/22/22 05:43 Dose: 5,000 unit Lactated Ringer's (Lr) 1,000 mls @ 100 mls/hr IVCONT .Q10H [facility] Last Admin: 09/22/22 04:06 Dose: 100 mls/hr Piperacillin Sod/Tazobactam (Sod 2.25 gm/ Sodium Chloride) 50 mls @ 100 mls/hr IV Q8H [facility] Last Infusion: 09/22/22 10:03 Dose: Infused Vancomycin HCl 750 mg/ Sodium (Chloride) 265 mls @ 265 mls/hr IV Q24H [facility] Last Infusion: 09/22/22 08:43 Dose: Infused Lorazepam (Lorazepam 2 Mg/Ml Vial) 1 mg IVPUSH Q6H PRN PRN Reason: anxiety Last Admin: 09/22/22 09:26 Dose: 1 mg Morphine Sulfate (Morphine Sulfate 2 Mg/Ml Cartridge) 3 mg IVPUSH Q3H PRN; Protocol PRN Reason: Pain, Mild (Pain Scale 1-3) Last Admin: 09/22/22 12:38 Dose: 3 mg Ondansetron HCl (Ondansetron Hcl 4 Mg/2 Ml Vial) 4 mg IVPUSH Q8H PRN PRN Reason: Nausea and Vomiting Oxycodone HCl (Oxycodone Hcl Immed Release 15 Mg Tablet) 15 mg PO Q4H PRN PRN Reason: withdrawal Pharmacy Consult (Consult Rx Vancomycin Dosing) 1 each MISCELLANE DAILY PRN PRN Reason: Consult order Allergies Allergies Allergy/AdvReac Type Severity Reaction Status Date / Time No Known Allergies Allergy Verified 03/04/22 04:53 Assessment & Plan Assessment & Plan (1) Opioid use disorder: Status: Acute Code(s): F11.90 - Opioid use, unspecified, uncomplicated Assessment and Plan: at time of this note, patient transferring to [facility] pain medications increased Total time managing care of this patient today _15___ minutes. PMFSH Past Medical History Medical History Endocarditis Opioid use disorder Surgical History Surgical History No pertinent past surgical history Social History Social History Household Members Other:: homeless Housing Other:: homeless Alcohol intake: never Patient Tobacco Use Status: Current everyday Tobacco user Smoked in Last 30 Days: No Use of substances other than those prescribed or required for medical reasons: Yes Substance Use Type: Crack/Cocaine and Heroin Substance Use Frequency: Chronic Longstanding Last Used Substance: Hours (ago) Last Used Substance Other:: 2 days ago Currently Displaying Signs/Symptoms of Drug Intoxication Withdrawal: Yes Advance Directives: No Advance Directives Information Provided: Yes Do you have thoughts of harming others: None Do you have a plan to hurt others: No Plan Recently lost weight without trying: No How much weight loss: Unsure Eating poorly because of decreased appetite: No Nutrition screen score: 2 Nutrition Risks: No Nutritional Risk Poor oral hygiene: No service: No
[2022-09-22] MEDS: oxyCODONE HCl Immed Release 15 MG TABLET PO (14:37)
[2022-09-22] MEDS: LORazepam 2 MG/ML VIAL IVPUSH (15:51)
[2022-09-22 16:00] VITALS: BP 148/84; PULSE 78; RESP 18; TEMP 36.7; O2SAT 100
--- NOTE | 2022-09-22 16:06 | MHC.CM.PN ---
DP: PER PROVIDER, PT WILL HAVE ACUTE TRANSFER TO [facility] TODAY FOR CARDIAC CARE.
[2022-09-22 17:05] LABS: Myeloperoxidase Antibody <1.0 AI; Proteinase 3 PR3 Antibodies <1.0 AI
[2022-09-23 05:49] LABS: Complement C3 108 mg/dL (82-185)
== END 2022-09-22 17:57 | disposition short-term general hospital (02) | DRG 193 ==
LOC: HO.ED 04:09 → HO.EDOVER 04:20 → HO.IMC 04:34
PROVIDERS: Internal Medicine Hypertension Specialist; Admitting Provider Internal Medicine; Emergency Provider Emergency Medicine Emergency Medical Services; PCP Internal Medicine; Visit Provider Nurse Practitioner Acute Care
DX: I33.9 Acute and subacute endocarditis, unspecified (principal); I26.90 Septic pulmonary embolism without acute cor pulmonale; J91.8 Pleural effusion in other conditions classified elsewhere; N17.9 Acute kidney failure, unspecified; J18.9 Pneumonia, unspecified organism; F05 Delirium due to known physiological condition; F11.13 Opioid abuse with withdrawal; I07.1 Rheumatic tricuspid insufficiency; R01.1 Cardiac murmur, unspecified; F19.10 Other psychoactive substance abuse, uncomplicated; Z59.02 Unsheltered homelessness; Z20.822 Contact with and (suspected) exposure to COVID-19; Z79.899 Other long term (current) drug therapy
CPT/HCPCS: 0241U; 36415; 70450; 71045; 71250; 74176; 76775; 80048; 80053; 80076; 80202; 81001; 82565; 83605; 83690; 83880; 84156; 84300; 84484; 85025; 86021; 86160; 86704; 86706; 86803; 87040; 87077; 87086; 87088; 87147; 87186; 87205; 87340; 93005; 93306; 99285; J1643; J2060; J2270; J2543; J3370

== ENCOUNTER 2023-10-28 03:11 | Emergency (ER) | payer MEDICAID, OTHER, SELFPAY ==
--- NOTE | ~2023-10-28 | CT_ITS ---
EXAMINATION: CT ABDOMEN AND PELVIS WITH CONTRAST CLINICAL INFORMATION: Abdominal pain. COMPARISON: CT abdomen pelvis 09/21/2022. MRI thoracic and lumbar 07/08/2022. TECHNIQUE: Multidetector volumetric images were obtained from the superior aspect of the liver through the pubic symphysis following administration 85 mL of Omnipaque 350 intravenous contrast. Sagittal and coronal reformatted images were obtained on the technologist's workstation. Oral contrast: No This CT examination was performed using dose optimization techniques as appropriate, variously including the following: *Automated exposure control *Adjustment of mA and/or kV according to patient size (this includes techniques or standardized protocols for targeted exams where dose is matched to indication/reason for exam; i.e. extremities or head) *Use of iterative reconstruction technique DLP: 823 mGy-cm FINDINGS: LUNG BASES: The visualized lung bases are unremarkable. LIVER, GALLBLADDER, AND BILIARY TREE: Nonspecific mild periportal edema is noted and is of uncertain clinical significance. No intrahepatic biliary duct dilatation identified. Normal hepatic size and capsular contour. The gallbladder demonstrates vague diffuse mural thickening to a width of approximately 5 mm. No pericholecystic fluid collections identified. No calcified cholelithiasis noted. PANCREAS: Unremarkable. SPLEEN: The spleen measures 12.5 cm in maximum transverse dimension, at the upper limits of normal size. ADRENAL GLANDS: The calcifications are again noted in the left adrenal gland unchanged compared with 09/21/2022 and are benign in appearance. KIDNEYS AND URETERS: Bilaterally symmetric nephrographic enhancement. No urolithiasis identified. No perinephric fluid collections. No urolithiasis identified. No hydronephrosis. Mild bilateral perinephric fat stranding is present in a grossly symmetric degree. BLADDER: Unremarkable. GASTROINTESTINAL TRACT: No intestinal dilatation or mural thickening. Normal appendix. No free intraperitoneal fluid or gas collections. Normal appearance of the stomach and duodenum. ABDOMINAL WALL: No significant hernia is appreciated. LYMPH NODES: Normal. VASCULAR: Mild scattered calcific atherosclerosis. PELVIC VISCERA: Normal prostate and seminal vesicles. OSSEOUS STRUCTURES: Marked intervertebral disc space narrowing, endplate irregularity and intervertebral disc vacuum phenomenon are noted at L5-S1 and are new compared with 09/21/2022. No soft tissue inflammatory changes are identified in the adjacent paraspinous regions. Partial visualization is made of an at least moderate posterior broad-based disc bulge at L5-S1. 1.5 cm diameter focus most consistent with a benign hemangioma is noted in the T12 vertebral body exhibiting areas of macroscopic fat, unchanged compared with 09/21/2022. CT/CT abdomen pelvis w IV con IMPRESSION: 1. Mild concentric neural thickening of the gallbladder. In the correct clinical setting, findings may represent cholecystitis. Findings appear new compared with 09/21/2022 may be further evaluated with abdominal ultrasonography as clinically indicated. No biliary duct dilatation. No pericholecystic fluid collections. 2. Mild-moderate bilateral perinephric fat stranding suspicious for bilateral perinephric inflammatory changes. No hydronephrosis or urolithiasis. Findings could correlate with pyelonephritis or nephritis. 3. L5-S1 marked intervertebral disc space narrowing and endplate irregularity which is new compared with 09/21/2022. Findings may represent progression of chronic degenerative disc disease. Discitis-osteomyelitis could present with similar findings. However, intervertebral disc vacuum phenomenon is present at this level and no paraspinous soft tissue inflammatory changes are identified. Both these findings favor chronic degenerative disc disease over discitis-osteomyelitis.
--- NOTE | ~2023-10-28 | XR_ITS ---
EXAMINATION: XR CHEST CLINICAL INFORMATION: Vomiting. Evaluate for aspiration. COMPARISON: 09/21/2022 TECHNIQUE: Frontal view of the chest was obtained. FINDINGS: There is slight apical lordotic positioning on this chest radiograph. Lungs are well expanded and clear. Cardiomediastinal silhouette has normal size and contour. Pulmonary vascular pattern is normal. No acute osseous abnormality. Moderate osteoarthritis of the left glenohumeral joint. Multilevel osteophyte formation of the suboptimally visualized spine. XR/XR chest 1V IMPRESSION: No evidence of pneumonia.
[2023-10-28 03:15] VITALS: BP 138/52; BP 143/71; PULSE 96; RESP 16; O2SAT 97; BMI 28.3
--- NOTE | 2023-10-28 03:21 | ECG_ITS ---
Test Reason : OVERDOSE Blood Pressure : / mmHG Vent. Rate : 071 BPM Atrial Rate : 071 BPM P-R Int : 130 ms QRS Dur : 158 ms QT Int : 428 ms P-R-T Axes : -15 -44 041 degrees QTc Int : 465 ms Normal sinus rhythm Left axis deviation Right bundle branch block Minimal voltage criteria for LVH, may be normal variant ( R in aVL ) Abnormal ECG When compared with ECG of 21-SEP-2022 01:54, No significant change was found Referred By: Lisa Bhat Electronically Signed By:Quan Cantu
--- NOTE | 2023-10-28 03:28 | ED.GENADULT ---
HPI - General Adult General Chief complaint: General Medical Stated complaint: ams, substance abuse Time Seen by Provider: 10/28/23 03:19 Source: EMS Mode of arrival: EMS History of Present Illness ED Provider: Dr Bhat HPI narrative: 53-year-old male with history of TERRY/polysubstance use disorder/endocarditis is brought in by EMS after patient was found in the middle the road by the police, they removed him to the side of the road and patient endorses that he has used fentanyl but unsure of any other drug use, he did not receive any Narcan and although he is making noises when spoken to he is alert and oriented. Patient is noted to be vomiting up brownish fluid. Related Data Home Medications ?Medication ?Instructions ?Recorded ?Confirmed hydroxyzine pamoate 25 mg capsule 25 - 50 mg PO QID PRN Anxiety 09/21/22 09/21/22 quetiapine 100 mg tablet 100 - 200 mg PO BEDTIME 09/21/22 09/21/22 Previous Rx's ?Medication ?Instructions ?Recorded lorazepam 2 mg/mL injection 1 mg (0.5 mL) IVPUSH Q6H PRN 09/22/22 solution anxiety #10 mL morphine 2 mg/mL intravenous 3 mg IVPUSH Q3H PRN Pain, Mild 09/22/22 syringe (Pain Scale 1-3) #10 mL oxycodone 15 mg tablet 15 mg PO Q4H PRN withdrawal #10 09/22/22 tabs piperacillin-tazobactam 2.25 2.25 g (56.25 mL) IV Q12H #1,200 mL 09/22/22 gram/50 mL in dextrose(iso) IV piggyback (Zosyn) vancomycin 750 mg/250 mL in 0.9 % 750 mg (250 mL) IV Q24H #3,000 mL 09/22/22 sodium chloride intravenous solution Allergies Allergy/AdvReac Type Severity Reaction Status Date / Time No Known Allergies Allergy Verified 10/28/23 03:24 Review of Systems Review of Systems: Pertinent positives and negatives as stated in HPI [facility] Past Medical History Source: nursing notes reviewed Medical History Endocarditis Opioid use disorder Surgical History No pertinent past surgical history Social History Social History Household Members Other:: homeless Housing Other:: homeless Alcohol intake: never Patient Tobacco Use Status: Current everyday Tobacco user Use of substances other than those prescribed or required for medical reasons: Yes Substance Use Type: Heroin Advance Directives: No Advance Directives Information Provided: No service: No Physical Exam ED Vital Signs: Vital Signs - 24 hr 10/28/23 03:15 Pulse Rate 96 Respiratory Rate 16 Blood Pressure 143/71 H Pulse Oximetry 97 Oxygen Delivery Method Room Air BMI result Body Mass Index 28.3 VITAL SIGNS: Reviewed. GENERAL: Well developed, well nourished, in no acute distress. HEAD: Normocephalic/atraumatic EYES: PERRLA, EOMI EARS: Ext canals without abnormality NOSE: Nares patent bilateral OROPHARYNX: no oral lesions noted, posterior pharynx clear NECK: Supple, no adenopathy LUNGS: Normal breath sounds. No adventitious sounds or accessory muscle use. SpO2<97> CARDIOVASCULAR: Regular rate and rhythm without noted murmurs ABDOMEN: Soft, non-tender, non-distended with bowel sounds. MUSCULOSKELETAL: No tenderness, deformities, or effusions noted on gross inspection. EXTREMITIES: No cyanosis, clubbing or edema. SKIN: Inspection of the skin reveals no rashes NEUROLOGIC: Alert and oriented x 4. Strength and sensation to light touch were grossly intact x 4. Medications Administered Discontinued Medications Generic Name Dose Route Start Last Admin Trade Name Freq PRN Reason Stop Dose Admin Sodium Chloride 1,000 mls @ 999 mls/hr 10/28/23 04:45 10/28/23 05:55 Ns IV 10/28/23 05:[address] Infusion Iohexol 85 ml 10/28/23 06:33 10/28/23 06:33 Iohexol 350 Mg/Ml 100 Ml Infus..Btl IV 10/28/23 06:34 85 ml ONCE ONE Administration Ketorolac Tromethamine 15 mg 10/28/23 06:04 10/28/23 06:16 Ketorolac Tromethamine 30 Mg/Ml Vial IVPUSH 10/28/23 06:05 15 mg ONCE ONE Administration Lorazepam 1 mg 10/28/23 06:07 10/28/23 06:16 Lorazepam 2 Mg/Ml Vial IVPUSH 10/28/23 06:08 1 mg ONCE ONE Administration Lorazepam 1 mg 10/28/23 06:14 10/28/23 06:26 Lorazepam 2 Mg/Ml Vial IVPUSH 10/28/23 06:15 1 mg ONCE ONE Administration Ondansetron HCl 4 mg 10/28/23 03:19 10/28/23 03:48 Ondansetron Hcl 4 Mg/2 Ml Vial IVPUSH 10/28/23 03:20 4 mg ONCE ONE Administration Potassium Chloride 60 meq 10/28/23 06:11 10/28/23 06:27 Potassium Chloride Packet 20 Meq Packet PO 10/28/23 06:12 60 meq ONCE ONE Administration Procedures Abscess I/D Site: lower extremity Side (if applicable): left Local Anesthetic: lidocaine 1% Amount of anesthesia used (mL): 1 Technique: needle aspiration Amount of fluid expressed (mL): 2 Sent for culture/gram staining?: No Irrigation: No Packing used?: none EJ/Peripheral Line Arm R: Time Out Performed: No Skin Cleansed in Sterile Fashion: Yes Size (gauge): 18 IV Secured and Dressing Applied: Yes Patient Tolerated Procedure: well Additional Comments: This peripheral IV was placed with ultrasound guidance. Medical Decision Making Medical Decision Making [facility] Narrative: 53-year-old male with history and clinical presentation, DDX: Polysubstance use, alcohol use?, with nausea and vomiting possibility of intra-abdominal process. I reviewed all investigations and hematologic indices are negative for leukocytosis and there is a stable normocytic anemia without thrombocytopenia. Chemistry indices negative for TERRY, there is a low potassium level which was repleted with 60 mEq of oral potassium chloride and no significant liver enzyme derangements. Guaiac vomitus was negative for blood. Ethanol undetectable. Urinalysis positive for hematuria. Patient continues to be agitated intermittently. Will proceed with CT scan of abdomen and pelvis with IV contrast. Peripheral IV infiltrated and ultrasound-guided IV was placed in right AC. Signed out to Dr Gavin. - f/u CT scan abd/pelvis - records from [facility] [facility] Differential Diagnosis Differential Diagnoses: The differential diagnosis associated with the presentation includes Please see the discussion above Admission/Observation Consideration of admission/observation: Escalation of care including admission/observation considered Please see the discussion above Lab Data [facility] Lab Attestation statement: I reviewed the patient's lab results. Please see the discussion above 10/28/23 03:42 10/28/23 03:42 Labs: Lab Results 10/28/23 10/28/23 10/28/23 Range/Units 03:42 04:01 05:41 WBC 6.8 (4.8-10.8) X10*3/uL RBC 4.66 (4.60-5.80) X10*6/uL Hgb 13.9 L (14.0-18.0) g/dl Hct 40.7 L (42.0-52.0) % MCV 87.3 (80.0-98.0) fL MCH 29.8 (27.0-33.0) pg MCHC 34.2 (31.0-36.0) g/dl RDW 13.9 (11.0-16.0) % Plt Count 263 D (160-400) X10*3/uL MPV 9.5 (9.4-12.4) fL Immature Gran % (Auto) 0.3 (0.0-0.4) % Neut % (Auto) 90.2 H (45-73) % Lymph % (Auto) 8.2 L (20-40) % [place] % (Auto) 0.4 L (2-11) % Eos % (Auto) 0.6 (0-4) % Baso % (Auto) 0.3 (0-2) % Lymph # (Auto) 0.6 L (1.2-4.9) X10*3/uL [place] # (Auto) 0.0 L (0.1-1.2) X10*3/uL Eos # (Auto) 0.0 (0.0-0.4) X10*3/uL Baso # (Auto) 0.0 (0.0-0.2) X10*3/uL Abs Immat Gran (auto) 0.02 (0.00-0.03) X10*3/uL Absolute Neuts (auto) 6.1 (2.0-8.3) x10*3/uL Absolute Nucleated RBC 0.000 (0.0-0.012) X10*3/uL Nucleated RBC % (auto) 0.0 (0.0-0.2) /100WBC Smear Tech's Comments VERIFIED Hold Purple Top SEE NOTE Hold Blue Top SEE NOTE Sodium 141 (135-145) mmol/L Potassium 3.0 L (3.3-5.1) mmol/L Chloride 108 (96-108) mmol/L Carbon Dioxide 22 (22-29) mmol/L Anion Gap 14 (12-20) BUN 11 (9-16) mg/dL Creatinine 1.08 (0.5-1.4) mg/dL Estim Creat Clear Calc 89.0 Estimated GFR > 60 Random Glucose 97 (60-115) mg/dL Calcium 9.1 D (8.4-10.2) mg/dL Magnesium 1.6 (1.6-2.6) mg/dL Total Bilirubin 1.0 (0.0-1.0) mg/dL AST 62 H (5-37) U/L ALT 21 (0-40) U/L Alkaline Phosphatase 126 H (39-117) U/L Total Protein 7.4 (6.5-8.0) g/dL Albumin 3.8 (3.5-5.0) g/dL Urine Color Dark Yellow Urine Appearance Clear Urine pH 5.5 (5.0-9.0) Ur Specific [place] 1.015 (1.005-1.025) Urine Protein 100 (2+) H (Neg-Trace) mg/dL Urine Glucose (UA) Negative (Negative) mg/dL Urine Ketones Trace (Negative) mg/dL Urine Blood Large (3+) H (Negative) Urine Nitrite Negative (Negative) Ur Leukocyte Esterase Trace H (Negative) Urine RBC 11-20 H (0-2) /HPF Urine WBC 0-5 (0-5) /HPF Ur Squamous Epith Cells 0-2 (0-2) /HPF Urine Bacteria Trace (None Seen) Hyaline Casts 3-5 (0-2) /LPF Gastric Occult Blood NEGATIVE (NEG) Urine Opiates Screen POSITIVE H (Not Detect) Ur Buprenorphine Scrn Not Detected (Not Detect) ng/mL Ur Oxycodone Screen Not Detected (Not Detect) ng/mL Urine Methadone Screen Not Detected (Not Detect) ng/mL Urine Fentanyl Screen POSITIVE H (Not Detect) Ur Barbiturates Screen Not Detected (Not Detect) Ur Phencyclidine Scrn Not Detected (Not Detect) Ur Amphetamines Screen Not Detected (Not Detect) U Benzodiazepines Scrn Not Detected (Not Detect) Urine Cocaine Screen POSITIVE H (Not Detect) U Marijuana (THC) Screen Not Detected (Not Detect) Ethyl Alcohol < 10 mg/dL Independent Interpretation I performed an independent interpretation of an: EKG Interpretation: Normal sinus rhythm, HR-71, no STEMI, RBBB at baseline, AL/QTC are within normal limits, there are no acute changes when compared to prior EKG from 09/26/2022. Radiology Impression Discussion of test interpretation with radiology: I have reviewed the radiologist's reading. Radiologist Impression: Please see the discussion above External Record Review External record reviewed: Outpatient record and Prior outpatient labs Social Determinants Patient?s care significantly limited by Social Determinants of Health including: Alcoholism and drug addiction in family Discharge Plan Discharge Clinical Impression: Abscess of left leg Patient Disposition: Still a Patient Instructions: Abscess (ED), Incision and Drainage (ED) Prescriptions: No Action quetiapine 100 mg tablet 100 - 200 mg PO BEDTIME hydroxyzine pamoate 25 mg capsule 25 - 50 mg PO QID PRN (Reason: Anxiety) lorazepam 2 mg/mL Solution 1 mg IVPUSH Q6H PRN (Reason: anxiety ) Qty: 10 0RF oxycodone 15 mg Tablet 15 mg PO Q4H PRN (Reason: withdrawal) Qty: 10 0RF Rx Instructions: Partial Fill upon patient request. morphine 2 mg/mL Syringe 3 mg IVPUSH Q3H PRN (Reason: Pain, Mild (Pain Scale 1-3)) Qty: 10 0RF Protocol: Hold for RR < HOLD and contact provider for RR < (bpm): 12 Rx Instructions: Partial Fill upon patient request. vancomycin in 0.9 % sodium chl 750 mg/250 mL solution 750 mg IV Q24H Qty: 3000 0RF Zosyn in dextrose (iso-osm) 2.25 gram/50 mL piggyback 2.25 g IV Q12H Qty: 1200 0RF Print Language: Choose Not To Answer
[2023-10-28 03:47] LABS: Basophils Percent Auto 0.3 % (0-2); Eosinophils Percent Auto 0.6 % (0-4); Hematocrit 40.7 % (42.0-52.0); Hemoglobin 13.9 g/dl (14.0-18.0); Imm Gran Abs Auto 0.02 X10*3/uL (0.00-0.03); Imm Gran Pct Auto 0.3 % (0.0-0.4); Lymphocytes Absolute Auto 0.6 X10*3/uL (1.2-4.9); Lymphocytes Percent Auto 8.2 % (20-40); Mean Corpuscular HGB Conc 34.2 g/dl (31.0-36.0); Mean Corpuscular Hemoglobin 29.8 pg (27.0-33.0); Mean Corpuscular Volume 87.3 fL (80.0-98.0); Mean Platelet Volume 9.5 fL (9.4-12.4); Monocytes Percent Auto 0.4 % (2-11); Neutrophils Absolute Auto 6.1 x10*3/uL (2.0-8.3); Neutrophils Percent Auto 90.2 % (45-73); Platelet Count 263 X10*3/uL (160-400); Red Blood Count 4.66 X10*6/uL (4.60-5.80); Red Cell Distribution Width 13.9 % (11.0-16.0); SCAN SMEAR FLAG 1; White Blood Count 6.8 X10*3/uL (4.8-10.8)
[2023-10-28] MEDS: ondansetron HCL 4 MG/2 ML VIAL IVPUSH ×2 (03:48→06:39)
[2023-10-28 03:51] LABS: MANUAL DIFF FLAG SCAN
--- NOTE | 2023-10-28 03:52 | PC.NURSE ---
per ems pt found by pd in the middle of the street, reported used fetanyl unsure of other drugs/when/how much. pt is axox4 no narcan given. on arrival pt threw up approx 150mL brown colored vomit. airway patent. sample sent to lab. iv established to R. upper arm/shoulder area. labs sent to lab. pt changed over by security and pct, belongings to [facility]. vss. pt resting comfortably in stretcher at this time, resp even and unlabored. call quintana within reach.
[2023-10-28 03:55] LABS: SLIDE REVIEW VERIFIED
[2023-10-28 04:03] LABS: Alanine Aminotransferase 21 U/L (0-40); Albumin Level 3.8 g/dL (3.5-5.0); Alkaline Phosphatase 126 U/L (39-117); Anion Gap 14 (12-20); Aspartate Amino Transferase 62 U/L (5-37); Blood Urea Nitrogen 11 mg/dL (9-16); Calcium 9.1 mg/dL (8.4-10.2); Carbon Dioxide 22 mmol/L (22-29); Chloride 108 mmol/L (96-108); Estimated Glomerular Filt Rate > 60; Ethanol < 10 mg/dL; Glucose Random 97 mg/dL (60-115); Sodium 141 mmol/L (135-145); Total Protein 7.4 g/dL (6.5-8.0)
[2023-10-28 04:08] LABS: GASOB Int Neg Ctl Valid YES; GASOB Int Pos Ctl Valid YES; Occult Blood Gastric NEGATIVE (NEG)
[2023-10-28 04:09] LABS: GASOB Lot 20422
[2023-10-28 04:25] LABS: Magnesium 1.6 mg/dL (1.6-2.6)
[2023-10-28] MEDS: 0.9 % Sodium Chloride 1,000 ML 999 ML IV (04:50)
--- NOTE | 2023-10-28 05:00 | PC.NURSE ---
abscess noted to Dr. Perlita PEREZ at bedside to drain abscess, pt tolerated well. pt is axox4, nsr on monitor. ivf infusing per mar. per MD, to order abx, no blood cultures at this time per MD.
[2023-10-28 05:49] LABS: Appearance Urine Clear; Color Urine Dark Yellow; Glucose Urine UA Negative (Negative); Leukocyte Esterase Urine Trace (Negative); Nitrite Urine Negative (Negative); PH 5.5 (5.0-9.0); Specific Gravity - Urine 1.015 (1.005-1.025); UMIC TRIGGER UACC YES; Urine Blood Large (3+) (Negative); Urine Ketones Trace mg/dL (Negative); Urine Protein 100 (2+) mg/dL (Neg-Trace)
[2023-10-28 05:59] LABS: Amphetamine Screen Urine Not Detected (Not Detect); Barbiturates, Urine Not Detected (Not Detect); Benzodiazepines Screen Urine Not Detected (Not Detect); Buprenorphine Scr Not Detected (Not Detect); Cannabinoid Screen Urine Not Detected (Not Detect); Cocaine Screen Urine POSITIVE (Not Detect); Fentanyl, urine POSITIVE (Not Detect); Methadone Screen, Urine Not Detected (Not Detect); Opiate Screen Urine POSITIVE (Not Detect); Oxycodone Screen Urine Not Detected (Not Detect); Phencyclidine Screen Urine Not Detected (Not Detect)
[2023-10-28 06:01] LABS: Bacteria Urine Trace (None Seen); Squamous Epithelial Cell Urine 0-2 /HPF (0-2); WBC Urine 0-5 /HPF (0-5)
--- NOTE | 2023-10-28 06:09 | PC.NURSE ---
pt having episodes of appearing uncomfortable in bed and yelling. per md ?drug related vs pain. iv meds ordered per jul. ?CT scan per MD, pt unable to stay still MD aware. pt refusing to take pills at this time, MD aware pt in agreement if potassium in liquid form.
[2023-10-28] MEDS: Ketorolac Tromethamine 30 MG/ML VIAL 15 MG IVPUSH (06:16)
[2023-10-28] MEDS: LORazepam 2 MG/ML VIAL 1 MG IVPUSH ×2 (06:16→06:26)
--- NOTE | 2023-10-28 06:19 | PC.NURSE ---
iv appears to have infiltrated. dr. johnson at bedside for u/s iv.
[2023-10-28] MEDS: Potassium Chloride Packet 20 MEQ PACKET 60 MEQ PO (06:27)
[2023-10-28] MEDS: iohexoL 350 MG/ML 100 ML INFUS..BTL 85 ML IV (06:33)
[2023-10-28 06:40] LABS: Troponin-I High Sensitivity 9.1 ng/L (<3.5-35.0)
[2023-10-28 06:42] VITALS: BP 106/45; PULSE 97; RESP 20; TEMP 37.1; O2SAT 100
--- NOTE | 2023-10-28 06:45 | PC.NURSE ---
pt had another vomiting episode after ct scan, zofran given per jul. assumed ct scans were not taken and ativan ordered per md to help pt tolerate imaging however ct scan images completed, ativan held at this time. vss. pt cleaned and new gown/bed linen provided. resting comfortably in stretcher.
[2023-10-28] MEDS: 0.9 % Sodium Chloride 1,000 ML 999 ML IVCONT (07:08)
[2023-10-28 07:09] VITALS: PULSE 95; RESP 18; O2SAT 97
--- NOTE | 2023-10-28 07:10 | PC.NURSE ---
sr on monitor, skin wpd, sleeping, awoke and looked at me but did not respond to questions and back to sleep
[2023-10-28 08:18] LABS: Erythrocyte Sedimentation Rate 8 MM/HR (0-15)
[2023-10-28 10:05] VITALS: BP 118/44; PULSE 66; RESP 13; TEMP 36.8; O2SAT 97
[2023-10-28 11:56] VITALS: BP 124/40; PULSE 68; RESP 18; TEMP 36.6; O2SAT 94
--- NOTE | 2023-10-28 12:27 | PC.NURSE ---
AMBULATION TRIAL UNSUCCESSFUL, PT REQUIRING 2 ASSIST, VERY UNSTEADY AND REFUSING TO ANSWER QUESTIONS THOUGH HE HAS BEEN FREQUENTLY CALLING OUT AND MAKING DEMANDS TO LEAVE. MD AWARE. NSR ON MONITOR, NORMOTENSIVE. CT HEAD PENDING.
--- NOTE | 2023-10-28 12:37 | PC.NURSE ---
PER CAP LINING MACHINE OPERATOR, PT NON COMPLIANT WITH CT, REPEATEDLY TURNING ON HIS SIDE, REFUSING TO LIE ON HIS BACK. MD AWARE CT NOT COMPLETED
[2023-10-28 12:57] VITALS: BP 124/40; PULSE 68; RESP 18; TEMP 36.6; O2SAT 94
== END 2023-10-28 12:58 | disposition left against medical advice (07) ==
PROVIDERS: Student in an Organized Health Care Education/Training Program; Emergency Provider Emergency Medicine
DX: L02.416 Cutaneous abscess of left lower limb (principal); R41.82 Altered mental status, unspecified; R11.10 Vomiting, unspecified; F19.10 Other psychoactive substance abuse, uncomplicated; I38 Endocarditis, valve unspecified; F17.200 Nicotine dependence, unspecified, uncomplicated; Z91.198 Patient's noncompliance with other medical treatment and regimen for other reason; Z79.899 Other long term (current) drug therapy
CPT/HCPCS: 10060; 36415; 51701; 71045; 74177; 80053; 80307; 81001; 82271; 82550; 83735; 84484; 85025; 85652; 93005; 96361; 96374; 96375; 96376; 99285; J1885; J2060; J2405; Q9967

== ENCOUNTER → 2023-10-28 03:21 | Outpatient (BNV) | payer MEDICAID, SELFPAY | PROVIDERS: Emergency Provider Emergency Medicine; Visit Provider Internal Medicine Cardiovascular Disease | DX: R94.31 Abnormal electrocardiogram [ECG] [EKG] (principal); I45.10 Unspecified right bundle-branch block | CPT/HCPCS: 93010 ==

== ENCOUNTER 2024-06-21 12:39 | Emergency (ER) | payer MEDICAID, SELFPAY ==
[2024-06-21] VITALS (11 sets, daily range): BP systolic 104–161; BP diastolic 50–89; PULSE 83–110; RESP 12–40; TEMP 37–38.6; O2SAT 97–100; BMI 24.4
--- NOTE | ~2024-06-21 | CT_ITS ---
CLINICAL HISTORY: trauma? CT cervical spine without contrast Comparison: None Findings: Motion degraded exam. Evaluation of the C1-C2 alignment and craniocervical junction alignment is precluded by the degree of motion artifact. Otherwise alignment is normal. No acute fracture identified where evaluation is possible within the limits of motion degradation. IMPRESSION: Nondiagnostic exam with patient motion artifact precluding evaluation of craniocervical junction alignment. No acute finding identified within this limitation. Repeat exam recommended. This document has been electronically signed by: Tl Almaraz MD on 06/21/2024 21:58:51
--- NOTE | ~2024-06-21 | XR_ITS ---
EXAMINATION: XR CHEST CLINICAL INFORMATION: CHEST PAIN COMPARISON: None available. TECHNIQUE: Frontal view of the chest was obtained. FINDINGS: The cardiac, hilar, and mediastinal contours are normal. The lungs demonstrate minimal linear atelectasis or scarring right mid lung, and right lower lobe. Lungs otherwise clear. No pneumothorax or effusion. No focal osseous or soft tissue abnormality. 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 XR/XR chest 1V IMPRESSION: No active pulmonary disease. Electronically signed by: Danis Malik MD 06/21/2024 04:37 PM EST
--- NOTE | ~2024-06-21 | CT_ITS ---
CLINICAL HISTORY: right sided facial droop, unknown pmhx CT head without contrast Comparison: None Findings: There is a right frontal hemorrhage with surrounding edema, measuring up to 13 mm on axial image 30. A 2nd smaller focus of hemorrhage is noted slightly cephalad to this on axial 35. There is ill-defined low-density within the posterior right frontal region on axial 43. No midline shift or significant mass effect. No hydrocephalus. No calvarial fracture. Paranasal sinuses are clear. Impression: Multifocal right frontal hemorrhage/hemorrhagic contusions, acute. There is a 2nd larger focus of low-density within the posterior right frontal region which may be subacute. Correlation with prior trauma or prior infarct. This document has been electronically signed by: Grant Oneil MD on 06/21/2024 20:42:47
--- NOTE | 2024-06-21 13:15 | ED.GENADULT ---
HPI - General Adult General Chief complaint: Chest Pain Stated complaint: Drug use, chest pain Time Seen by Provider: 06/21/24 13:13 Source: patient, EMS, RN notes reviewed and old records reviewed Mode of arrival: EMS Limitations: altered mental status History of Present Illness ED Provider: Brigido [facility] narrative: Patient is a 49-year-old male with unknown past medical history presenting to the ED via EMS after being found laying on a table at [employer]. Upon arrival to the ED, patient initially drowsy, not answering questions. After some time, patient more awake, right facial droop noted. When asked if he had history of stroke, he answered yes. Speech slurred and difficult to understand. Patient also reporting history of endocarditis. Unknown last known well time. MD complaint: altered mental status Onset (ago): unknown Related Data Home Medications ?Medication ?Instructions ?Recorded ?Confirmed cholecalciferol (vitamin D3) 50 50 mcg PO QAM 06/21/24 06/21/24 mcg (2,000 unit) capsule (Vitamin D3) Allergies Allergy/AdvReac Type Severity Reaction Status Date / Time No Known Allergies Allergy Unverified 06/21/24 13:41 Review of Systems Review of Systems: As per HPI. Yes all other systems are reviewed and are negative Neurologic: Reports Abnormal speech present PMFSH Social History Social History Advance Directives: No Advance Directives Information Provided: Yes Do you have a plan to hurt others: No Plan Physical Exam ED Vital Signs: Vital Signs - 24 hr 06/21/24 13:24 06/21/24 13:36 06/21/24 17:59 Temperature 99.4 F 99.4 F 101.5 F H Pulse Rate 102 H 102 H 110 H Respiratory Rate 20 20 20 Blood Pressure 125/61 125/61 104/64 Pulse Oximetry 97 97 Oxygen Delivery Method Room Air Room Air BMI result Body Mass Index 24.4 Vital signs have been reviewed and appear to be correct. Blood pressure normal. Heart rate slightly tachycardic. Respiratory rate normal. Temperature normal. Oxygen saturation normal. Const General: no acute distress, alert, awake, intoxicated appearing and poor hygiene Nutritional Appearance: average body habitus Orientation/consciousness: oriented to person Limitations: physical limitations (slurred speech) HENMT Head: Yes normocephalic and Yes atraumatic Ears: hearing grossly normal bilaterally, external ears normal, TM's normal bilaterally and EAC's normal General nose exam: Normal external nose present and Normal nasal mucous membranes and turbinates present Face and sinus: Yes other (right facial droop) Mouth: oropharynx normal Throat: Yes uvula midline Eyes General: appearance normal, both eyes and all related structures Pupils: Equal, round and reactive pupils present Neck Neck: Yes normal visual inspection, Yes full ROM, Yes trachea midline and Yes supple Resp Effort & Inspection: normal respiratory effort Auscultation: clear to auscultation bilaterally Cardio Rate: tachycardic Rhythm: regular rhythm Heart sounds: S1 normal heart sound present and S2 normal heart sound present Peripheral pulses: Peripheral pulses 2+ throughout GI Inspection: Yes normal to inspection Palpation (GI): Soft to palpation and nontender General: Yes no CVA tenderness Back/Spine/Pelvis Back: no CVA tenderness Skin General skin exam: elasticity normal, turgor normal and other (multiple puncture wounds to hands/forearms) Neuro General: oriented to person, tone normal, moves all extremities, no focal motor deficits and deep tendon reflexes 2+ bilaterally Cranial nerves: Yes Equal, round and reactive pupils present Speech: Abnormal speech present slurred Details: garbled Motor exam (neuro): Pronator motor function not present and no tremor noted Extrem General: Yes normal to inspection, Yes full ROM, Yes capillary refill normal, Yes no pedal edema and Yes no calf tenderness Psych Appearance: disheveled Speech and movement: Slurred speech present Course Reevaluation(s) Reevaluation #1: Patient's speech now more clear, however, he remains confused. Stating that we can contact his sister but is unable to state her phone number. EKG shows hyperacute T waves, no prior for comparison. Critical troponin of 6265.1 received from lab. Case discussed with Dr. Gavin who recommends starting vanco and ceftriaxone for endocarditis, blood cultures and lactic ordered as well. Dr. Gavin notified Dr. Coello, cardiology who recommends repeat troponins and echo. Patient signed out to [facility] pending remainder of workup. Will require admission. Time: 16:02 Reevaluation #2: I Rosie Bullock PA-C have accepted care of the patient and signed out pending labs and admission. At the time of sign-out I did not realize that the patient's blood cultures we had to be obtained. He requires 3 sets of blood cultures given he has endocarditis. They antibiotics have been ordered. We also need a delta troponin and a lactic. I am having to place an ultrasound-guided line. We are taking care of this now Time: 16:30 Reevaluation #3: sepsis identified.... He has a rectal temp of 101.5?, he is mildly tachycardic at 104, his blood pressure is the patient has never had a formal echocardiogram, I do not want to heavily bolus him with IV fluid given we do not know the state of his contractility, we will give a 500 mL bolus. Giving IV Tylenol, ceftriaxone and vancomycin were already ordered and are being administered now that we obtained blood cultures and have established IV access. Time: 18:03 Medications Administered Generic Name Dose Route Start Last Admin Trade Name Freq PRN Reason Stop Dose Admin Sodium Chloride 500 mls @ 500 mls/hr 06/21/24 18:04 06/21/24 18:13 Ns IV 06/21/24 19:03 500 mls/hr .Q1H ONE Administration Discontinued Medications Generic Name Dose Route Start Last Admin Trade Name Freq PRN Reason Stop Dose Admin Ceftriaxone Sodium 2 gm 06/21/24 16:00 06/21/24 17:56 Ceftriaxone Sodium 2 Gm Vial IVPUSH 06/21/24 16:01 2 gm ONCE ONE Administration Haloperidol Lactate 2.5 mg 06/21/24 17:32 06/21/24 17:38 Haloperidol Lactate 5 Mg/Ml Vial IVPUSH 06/21/24 17:33 2.5 mg ONCE ONE Administration Vancomycin HCl 1,500 mg/ 500 mls @ 333.333 mls/hr 06/21/24 16:15 06/21/24 18:08 Sodium Chloride IV 06/21/24 17:44 333.33 mls/hr ONCE ONE Administration Lorazepam 2 mg 06/21/24 17:32 06/21/24 17:37 Lorazepam 2 Mg/Ml Vial IVPUSH 06/21/24 17:33 2 mg ONCE ONE Administration Procedures Procedure Narrative Procedure Narrative: Ultrasound-guided IV 18 gauge 1 of the 3/4 inch IV placed in the left upper extremity. Adequate blood return, flushes well secured with Tegaderm performed by Rosie Bullock PA-C Medical Decision Making Medical Decision Making MDM Narrative: Patient is a 49-year-old male with unknown past medical history presenting to the ED via EMS after being found laying on a table at [facility]. On exam patient is awake, A+Ox3, slightly tachycardic, VS otherwise WNL, afebrile, normal neurological exam without focal deficits, physical exam findings as above. Given reported symptoms and physical exam findings, initial differential includes but is not limited to CVA/ICH, ACS, endocarditis, drug or alcohol intoxication, electrolyte abnormality. Labs notable for troponin of 6265.1, slight leukocytosis, no anemia, elevated BUN. See course for remainder of clinical decision making. Differential Diagnosis Differential Diagnoses: The differential diagnosis associated with the presentation includes As per [facility] Admission/Observation Consideration of admission/observation: Escalation of care including admission/observation considered Consult Healthcare Provider Management of the patient was discussed with: Interim Controller (Dr. Coello) Lab Data [facility] Lab Attestation statement: I reviewed the patient's lab results. As per [facility] 06/21/24 14:51 06/21/24 14:51 Labs: Lab Results 06/21/24 06/21/24 Range/Units 14:51 17:31 WBC 11.6 H (4.8-10.8) X10*3/uL RBC 5.24 (4.60-5.80) X10*6/uL Hgb 14.8 (14.0-18.0) g/dl Hct 42.8 (42.0-52.0) % MCV 81.7 (80.0-98.0) fL MCH 28.2 (27.0-33.0) pg MCHC 34.6 (31.0-36.0) g/dl RDW 14.5 (11.0-16.0) % Plt Count 133 L (160-400) X10*3/uL MPV 10.5 (9.4-12.4) fL Immature Gran % (Auto) 0.8 H (0.0-0.4) % Neut % (Auto) 84.6 H (45-73) % Lymph % (Auto) 6.2 L (20-40) % [place] % (Auto) 6.7 (2-11) % Eos % (Auto) 1.4 (0-4) % Baso % (Auto) 0.3 (0-2) % Lymph # (Auto) 0.7 L (1.2-4.9) X10*3/uL [place] # (Auto) 0.8 (0.1-1.2) X10*3/uL Eos # (Auto) 0.2 (0.0-0.4) X10*3/uL Baso # (Auto) 0.0 (0.0-0.2) X10*3/uL Abs Immat Gran (auto) 0.09 H (0.00-0.03) X10*3/uL Absolute Neuts (auto) 9.8 H (2.0-8.3) x10*3/uL Absolute Nucleated RBC 0.000 (0.0-0.012) X10*3/uL Nucleated RBC % (auto) 0.0 (0.0-0.2) /100WBC PT 16.6 H (10.9-12.4) SEC INR 1.4 H (0.9-1.1) Sodium 137 (135-145) mmol/L Potassium 3.4 D (3.3-5.1) mmol/L Chloride 107 (96-108) mmol/L Carbon Dioxide 17 L (22-29) mmol/L Anion Gap 16 (12-20) BUN 46 H (9-16) mg/dL Creatinine 1.18 (0.5-1.4) mg/dL Estim Creat Clear Calc 68.3 Estimated GFR > 60 Random Glucose 126 H (60-115) mg/dL Lactic Acid 2.4 H* (0.5-2.0) mmol/L Calcium 8.9 D (8.4-10.2) mg/dL Magnesium 2.1 (1.6-2.6) mg/dL Total Bilirubin 1.4 H (0.0-1.0) mg/dL AST 92 H (5-37) U/L ALT 18 (0-40) U/L Alkaline Phosphatase 94 (39-117) U/L Total Creatine Kinase 909 H (38-174) U/L Troponin I High Sens 6265.1 H* (<3.5-35.0) ng/L Total Protein 8.3 H (6.5-8.0) g/dL Albumin 3.7 (3.5-5.0) g/dL Ethyl Alcohol < 10 mg/dL Influenza Type A (PCR) NEGATIVE (Negative) Influenza Type B (PCR) NEGATIVE (Negative) RSV RNA Qual (PCR) NEGATIVE (Negative) SARS-CoV-2 RNA (RT-PCR) NEGATIVE (Negative) External Record Review External record reviewed: Inpatient record, Office record and Outpatient record Discharge Plan Discharge Clinical Impression: Altered mental status, Elevated troponin, Sepsis Patient Disposition: Admitted As Inpatient Print Language: Sammarinese
--- NOTE | 2024-06-21 14:20 | MHC.EDTECH ---
pt changed over into safety hospital attire by this tech and security, belongings searched, placed in belongings bags and in jade port shelf 3, pants were soiled with urine, washing and drying them in the POD at this time, note made in belongings list as well
[2024-06-21 14:55] LABS: MANUAL DIFF FLAG NO
[2024-06-21 14:56] LABS: Basophils Percent Auto 0.3 % (0-2); Eosinophils Absolute Auto 0.2 X10*3/uL (0.0-0.4); Eosinophils Percent Auto 1.4 % (0-4); Hematocrit 42.8 % (42.0-52.0); Hemoglobin 14.8 g/dl (14.0-18.0); Imm Gran Abs Auto 0.09 X10*3/uL (0.00-0.03); Imm Gran Pct Auto 0.8 % (0.0-0.4); Lymphocytes Absolute Auto 0.7 X10*3/uL (1.2-4.9); Lymphocytes Percent Auto 6.2 % (20-40); Mean Corpuscular HGB Conc 34.6 g/dl (31.0-36.0); Mean Corpuscular Hemoglobin 28.2 pg (27.0-33.0); Mean Corpuscular Volume 81.7 fL (80.0-98.0); Mean Platelet Volume 10.5 fL (9.4-12.4); Monocytes Absolute Auto 0.8 X10*3/uL (0.1-1.2); Monocytes Percent Auto 6.7 % (2-11); Neutrophils Absolute Auto 9.8 x10*3/uL (2.0-8.3); Neutrophils Percent Auto 84.6 % (45-73); Platelet Count 133 X10*3/uL (160-400); Red Blood Count 5.24 X10*6/uL (4.60-5.80); Red Cell Distribution Width 14.5 % (11.0-16.0); White Blood Count 11.6 X10*3/uL (4.8-10.8)
--- NOTE | 2024-06-21 14:58 | MHC.EDTECH ---
blood and nose swab drawn and sent to lab
[2024-06-21 15:03] LABS: INTERNATIONAL NORM RATIO 1.4 (0.9-1.1); Prothrombin Time 16.6 SEC (10.9-12.4)
[2024-06-21 15:19] LABS: Alanine Aminotransferase 18 U/L (0-40); Albumin Level 3.7 g/dL (3.5-5.0); Alkaline Phosphatase 94 U/L (39-117); Anion Gap 16 (12-20); Aspartate Amino Transferase 92 U/L (5-37); Bilirubin Total 1.4 mg/dL (0.0-1.0); Blood Urea Nitrogen 46 mg/dL (9-16); Calcium 8.9 mg/dL (8.4-10.2); Carbon Dioxide 17 mmol/L (22-29); Chloride 107 mmol/L (96-108); Creatinine Clr Calc Pharmacy 68.3; Estimated Glomerular Filt Rate > 60; Ethanol < 10 mg/dL; Glucose Random 126 mg/dL (60-115); Magnesium 2.1 mg/dL (1.6-2.6); Potassium 3.4 mmol/L (3.3-5.1); Sodium 137 mmol/L (135-145); Total Protein 8.3 g/dL (6.5-8.0)
[2024-06-21 15:37] LABS: Influenza A PCR NEGATIVE (Negative); Influenza B PCR NEGATIVE (Negative); Resp Syncy Virus RNA Qual PCR NEGATIVE (Negative); SARS COV2 PCR INHOUSE NEGATIVE (Negative)
--- NOTE | 2024-06-21 15:53 | ECG_ITS ---
Test Reason : CP Blood Pressure : */* mmHG Vent. Rate : 95 BPM Atrial Rate : 95 BPM P-R Int : 132 ms QRS Dur : 152 ms QT Int : 474 ms P-R-T Axes : 12 99 -49 degrees QTcB Int : 595 ms Normal sinus rhythm with sinus arrhythmia Right bundle branch block Inferior infarct , age undetermined Abnormal ECG No previous ECGs available Referred By: Rosie Fofana Electronically Signed By: JR COOL MD
--- NOTE | 2024-06-21 16:24 | MHC.EDTECH ---
pt seem climbing out of bed and laying on the floor x2, RN and special agent in charge aware, pt provided clean linens and placed back in bed. continuing to monitor
--- OUTSIDE RECORDS SUMMARY | 2024-06-21 16:32 | XMS_ITS | Encounter Summary ---
Author Organization [facility] Address [address] [place] [address] [address] [place] [address] Care Team Providers Care Nut Process Helper Name Role Phone Emily Palma Primary Care Provider Encounter Details Date Type Department Care Team (Latest Contact Info) Description 06/20/2024 Travel Social History Tobacco Use Types Packs/Day Years Used Date Smoking Tobacco: Never Smokeless Tobacco: Never Alcohol Use Standard Drinks/Week Comments Never 0 (1 standard drink = 0.6 oz pur e alcohol) Depression Answer Date Recorded Patient Health Questionnaire-9 Score 2 03/02/2024 Patient Health Questionnaire-9 Score 2 03/02/2024 Last PHQ-9: Questionnaire Data Not on file 1 Housing Stability Answer Date Recorded What is your housing situation today? I have catia best 02/22/[address] you li ve. Do you have problems with any of the following? None of the above 02/22/2023 Food Insecurity Answer Date Recorded Within the past 12 months, y ou worried that your food would run out before you got money to buy more: Never True 02/22/2023 Within the past 12 months,th e food you bought just didn't last and you didn't have enough money to get more: Never True Transportation Answer Date Recorded In the past 12 months, has l ack of transportation kept you from medical appts, meetings, work or from getting things needed for daily living? No 02/22/2023 Utilities Answer Date Recorded In the past 12 months, has t he electric, gas, oil or water company threatened to shut off services in your home? No 02/22/2023 Depression Answer Date Recorded Patient Health Questionnaire-2 Score 0 03/02/2024 Sex and Gender Information Value Date Recorded Sex Assigned at Male 03/09/2022 10:26 AM EDT Legal Sex Male 10:26 AM EDT Gender Identity Male 03/09/2022 10:26 AM EDT Sexual Orientation Straight 03/09/2022 10 :26 AM EDT documented as of this encounter Plan of Treatment Upcoming Encounters Date Type Department Care Team (Late st Contact Info) Description 07/04/2024 1:30 PM EST Office Visit [facility] [address] [place] [address] Addy Garrison DDS [address] [place] [address] 07/18/2024 1:45 PM EDT Clinical Support [facility] [address] [place] [address] Dilcia Falcon RN 08/21/2024 1:00 PM EDT Office Visit [facility] [address] [place] [address] Ivanna Naqvi [address] [place] [address] documented as of this encounter Visit Diagnoses Not on filedocumented in this encounter Additional Health Concerns Assessment Noted Time PHQ-9 Depression Total Score: 2 03/02/20 24 11:12 AM EDT documented as of this encounter Care Teams Nut Process Helper Relationship Specialty Start Date End Date Emiyl Palma DO [address] [place] [id number] PCP - General Family Medicine 11/14/13 documented as of this encounter
--- OUTSIDE RECORDS SUMMARY | 2024-06-21 16:32 | XMS_ITS | Encounter Summary ---
Author Organization [facility] Address [address] 7[address] [place] [address] Care Team Providers Care Ski Maker Name Role Phone Emily Palma DO Primary Care Provider [phone] Reason for Visit * Reason Comments OBAT Encounter Details Date Type Department Care Team (Latest Contact Info) Description 06/20/2024 1:15 PM EST Clinical Support [facility] [address] [place] [address] [phone] Dilcia Falcon RN Opioid dependence, uncomplicated (CMS/HCC) (Primary Dx) Social History Tobacco Use Types Packs/Day Years [...] AM EDT documented as of this encounter Progress Notes * Dilcia Falcon RN - 06/20/2024 1:15 PM EST Patient here today for Opioid Dependence RV. Patient on current Suboxone dose of 1/0.25 mg bid on an 8 week schedule. Induction date: 01/07/16 .Pt has been in the program for 6 years, 7 months. LFTs done 12/08/22 Hep A Status: Immune Hep B Status: Immune Hep C status: Non-reactove 12/08/22 HIV Status: Non-reactive 12/08/22 Patient actively enrolled in behavioral health services with integrated [facility] clinician, Darya. JOSESITO LECHUGA reviewed by provider. 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 Taking Suboxone as prescribed for opioid dependence with no adverse effects. No constipation. Denies cravings, w/d symptoms or illicit substance use. Has Narcan. Declines speaking with head golf coach or N at this time. Lab tests done 03/02/24, all OK. Last month was his 1st dose of Sublocade 100mg. States for 2 days after the dose, he had malaise, n/v, thinks the dose was too high. Elizabeth well after that. Still feels small mass of Sublocade in abd wall. He has several Suboxone 2 mg strips at home to use if he has cravings or w/d sx. Advised to call usif he needs additional strips. Prior to Sublocade, he split 2 mg Suboxone strip into 4 pieces, and takes 1 piece bid, but had w/d sx if he tried to skip a dose. Never smoked. Still working at [employer]. Talks to 20 y.o. daughter in [place] every weekend. She decided not to attend college. AILYN Causey reviewed. Taking Suboxone as prescribed for opioid dependence with no adverse effects. No constipation. Denies cravings, w/d symptoms or illicit substance use. Has Narcan. Declines speaking with head golf coach or [facility] at this time. Lab tests done 03/02/24, all OK. Last month was his 1st dose of Sublocade 100mg. States for 2 days after the dose, he had malaise, n/v, thinks the dose was too high. Elizabeth well after that. Still feels small mass of Sublocade in abd wall. He has several Suboxone 2 mg strips at home to use if he has cravings or w/d sx. Advised to call usif he needs additional strips. Prior to Sublocade, he split 2 mg Suboxone strip into 4 pieces, and takes 1 piece bid, but had w/d sx if he tried to skip a dose. Never smoked. Still working at [employer]. Talks to 20 y.o. daughter in [place] every weekend. She decided not to attend college. 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 He is alert and oriented. Speech clear, coherent and goal directed. Easily engaged and initiates conversation. Doing well on sublocade 100 mg that he received 6 weeks ago. Declines the second sublocade injection today. Denies illicit substance use, cravings, withdrawal symptoms, or side effects. States he has 5 films ofsuboxone remaining at home. Informed the patient that should he begin to have any withdrawal symptoms or cravings, to come to [facility] even without an appt and talk about receiving another injection. Alsoinformed him that if we are closed (3 day weekend coming up), then to take his suboxone films as previously prescribed (2 mg daily) and return to the clinic on the next business day. Plan: Suboxone dosing schedule 100 mg q 28 days, and management of side effects reviewed. Recovery support, harm reduction (including Narcan), and behavioral health attendance reviewed. Appointment for 8 weeks given. Patient expressed understanding and agreement with continuing plan of care. This information has been disclosed to you from records protected by federal confidentiality rules (42 CFR Part 2). The federal rules prohibit you from making any further disclosure of information inthis record that identifies a patient as having or having had a substance use disorder either directly, by reference to publicly available information, or through verification of such identification by another person unless further disclosure is expressly permitted by the written consent of the individual whose information is being disclosed or as otherwise permitted by (see2.3.1). The federal rules restrict any use of the information to investigate or prosecute with regard to a crime any patient with a substance use disorder, except as provided at 2.12??(5) and 2.65. documented in this encounter Plan of Treatment Upcoming Encounters Date Type Department Care Team (Late st Contact Info) Description 07/04/2024 1:30 PM EST Office Visit [facility] [address] [place], [place] [phone] Addy Garrison DDS [address] [place] [address] 07/18/2024 1:45 PM EDT Clinical Support [facility] [address] [place], [place] [phone] Dilcia Falcon RN 08/21/2024 1:00 PM EDT Office Visit [facility] [address] [place] [address] Ivanna Naqvi [address] [place] [address] documented as of this encounter Procedures Procedure Name Priority Date/Time Associated Diagnosis Comments POCT ADINA-14 URINE DRUG SCREEN Routine 06/20/2024 1:18 PM EST Opioid dependence, uncomplicated ([facility]) documented in this encounter Results * POCT ADINA-14 Urine Drug Screen (06/20/2024 1:18 PM EST) THC Negative Cocaine Screen, Urine Negative Opiate Screen, Urine Negative Methamphetamine Screen Urine Negative Amphetamine Screen, Urine Negative Benzodiazepines Screen, Urine Negative Barbiturate Screen, Urine Negative Methadone Screen, Urine Negative Buprenophine Screen, Urine Positive TCA, Urine Negative MDMA Urine Negative ng/mL Oxycodone Screen, Urine Negative Phencyclidine (PCP), Urine Negative Propoxyphene, Urine Negative Fentanyl, Urine Negative Urine Urine specimen obtained by clean catch procedure / Unknown 06/20/2024 1:18 PM EST Neal Carbajal MD POINT OF CARE TEST ENTER/EDIT OR DERABLES Final Result documented in this encounter Visit Diagnoses Diagnosis Opioid dependence, uncomplicated (CMS/HCC)- Primary documented in this encounter Additional Health Concerns Assessment Noted Time PHQ-9 Depression Total Score: 2 03/02/20 24 11:12 AM EDT documented as of this encounter Care Teams Ski Maker Relationship Specialty Start Date End Date Emily Palma DO [address] [place] [phone] PCP - General Family Medicine 11/14/13 documented as of this encounter
--- OUTSIDE RECORDS SUMMARY | 2024-06-21 16:32 | XMS_ITS | Encounter Summary ---
Author Organization [facility] [facility] Address [address] [place] [address] 7t [place] [address] Care Team Providers Care Pediatric Critical Care Nurse Name Role Phone Emily Palma DO Primary Care Provider [phone] Encounter Details Date Type Department Care Team (Late st Contact Info) Description 12/10/2022 Orders Only [facility] [address] [place] [address] Neal Carbajal MD [address] [place] [address] Vitamin D deficiency Social History Tobacco Use Types Packs/Day Years Used Date Smoking Tobacco: Never Smokeless Tobacco: Never Alcohol Use Standard Drinks/Week Comments Never 0 (1 standard drink = 0.6 oz pur e alcohol) Sex and Gender Information Value Date Recorded Sex Assigned at Male 03/09/2022 10:26 AM EDT Legal Sex Male 10:26 AM EDT Gender Identity Male 03/09/2022 10:26 AM EDT Sexual Orientation Straight 03/09/2022 10 :26 AM EDT documented as of this encounter Plan of Treatment Upcoming Encounters Date Type Department Care Team (Late st Contact Info) Description 07/04/2024 1:30 PM EST Office Visit [facility] [address] [place] [address] Addy Garrison DDS [address] [place] [address] 07/18/2024 1:45 PM EDT Clinical Support [facility] [address] [place] [phone] Dilcia Falcon RN 08/21/2024 1:00 PM EDT Office Visit [facility] [address] [place] [phone] Melo Naqviaris [address] [place] [address] documented as of this encounter Visit Diagnoses Diagnosis Vitamin D deficiency documented in this encounter Care Teams Pediatric Critical Care Nurse Relationship Specialty Start Date End Date Emily Palma DO [address] [place] [address] PCP - General Family Medicine 11/14/13 documented as of this encounter
--- OUTSIDE RECORDS SUMMARY | 2024-06-21 16:32 | XMS_ITS | Encounter Summary ---
Author Organization [facility] [employer] Address [address] [place] [address] Care Team Providers Care Coal Handler Name Role Phone Emily Palma Primary Care Provider [phone] Reason for Visit * Reason Comments Med Refill Encounter Details Date Type Department Care Team (Late st Contact Info) Description 05/17/2023 Refill [facility] [address] [place], [place] [phone] Neal Carbajal MD [address] [place], [place] [phone] Opioid dependence, uncomplicated (CMS/HCC) Social History Tobacco Use Types Packs/Day Years Used Date Smoking Tobacco: Never Smokeless Tobacco: Never Alcohol Use Standard Drinks/Week Comments Never 0 (1 standard drink = 0.6 oz pur e alcohol) Depression Answer Date Recorded Patient Health Questionnaire-9 Score 0 01/25/2023 Housing Stability Answer Date Recorded What is [...] Date Recorded Patient Health Questionnaire-2 Score 0 01/25/2023 Sex and Gender Information Value Date Recorded Sex Assigned at Male 03/09/2022 10:26 AM EDT Legal Sex Male 10:26 AM EDT Gender Identity Male 03/09/2022 10:26 AM EDT Sexual Orientation Straight 03/09/2022 10 :26 AM EDT documented as of this encounter Plan of Treatment Upcoming Encounters Date Type Department Care Team (Late st Contact Info) Description 07/04/2024 1:30 PM EST Office Visit [facility]ULT [facility] [address] [place] [address] Addy Garrison DDS [address] [place] [address] 07/18/2024 1:45 PM EDT Clinical Support [facility] [address] [place] [address] Dilcia Falcon RN 08/21/2024 1:00 PM EDT Office Visit [facility] [address] [place] [address] Melo Naqviaris [address] [place] [address] documented as of this encounter Visit Diagnoses Diagnosis Opioid dependence, uncomplicated (CMS/HCC) documented in this encounter Additional Health Concerns Assessment Noted Time PHQ-9 Depression Total Score: 0 01/26/20 23 10:01 AM EDT documented as of this encounter Care Teams Coal Handler Relationship Specialty Start Date End Date Emily Palma DO [address] [place] [phone] PCP - General Family Medicine 11/14/13 documented as of this encounter
--- OUTSIDE RECORDS SUMMARY | 2024-06-21 16:32 | XMS_ITS | Encounter Summary ---
Author Organization [facility] [facility] Address [address] [place] [address] Care Team Providers Care Biology Faculty Member Name Role Phone Emily Palma DO Primary Care Provider [phone] Reason for Visit * Reason Comments RC Recovery Supports Encounter Details Date Type Department Care Team (Late st Contact Info) Description 06/20/2024 Patient Outreach [facility] [address] [place], [place] [phone] Lc Aguero Recovery Supports Social History Tobacco Use Types Packs/Day Years [...] as of this encounter Progress Notes * Lc Aguero - 06/20/2024 1:22 PM EST I met with Daniel today. Setting: in person at [facility] Recovery Wellness Goals worked on: Physical Health/Mental Health Action taken/next steps: Offered person centered recovery support and Attended alcohol and drug free activity Additional comments: Participant arrive to the clinic for a follow up. Right after his visit. From doctor. He connected with the recovery agent to touch basis and discuss pertaining to the services and resources that center have in place for participant in recovery. Lc Aguero documented in this encounter Plan of Treatment Upcoming Encounters Date Type Department Care Team (Late st Contact Info) Description 07/04/2024 1:30 PM EST Office Visit [facility] ADULT DENTAL [address] [place] [address] Addy Garrison DDS [address] [place] [address] 07/18/2024 1:45 PM EDT Clinical Support [facility] [address] [place] [address] Dilcia Falcon RN 08/21/2024 1:00 PM EDT Office Visit [facility] ADULT DENT[facility] [address] [place] [address] Ivanna Naqvi [address] [place] [address] documented as of this encounter Visit Diagnoses Not on filedocumented in this encounter Additional Health Concerns Assessment Noted Time PHQ-9 Depression Total Score: 2 03/02/20 24 11:12 AM EDT documented as of this encounter Care Teams Biology Faculty Member Relationship Specialty Start Date End Date Emily Palma DO [address] [place] [phone] PCP - General Family Medicine 11/14/13 documented as of this encounter
--- OUTSIDE RECORDS SUMMARY | 2024-06-21 16:32 | XMS_ITS | Clinical Summary ---
Author Organization [employer] [facility] Address [address] [place] [address] 7[address] [place] [address] Care Team Providers Care Vehicle Operator Name Role Phone Emily Palma Primary Care Provider Allergies No known active allergies Medications Multiple Vitamin (Multivitamin Adult) tablet Take 1 tablet by mouth in the morning. 30 tablet 11 3 Active acetaminophen (Tylenol) 500 MG tablet Take 1 tablet (500 mg) by mouth every 6 (six) hours if needed for mild pain for up to 20 doses. 20 tablet 4 Active ibuprofen 600 MG tablet Take 1 tablet (600 mg) by mouth every 6 (six) hours if needed for mild pain for up to 20 doses. 20 tablet 4 Active D3 Super Strength 50 MCG (2000 UT) capsule TAKE 1 CAPSULE BY MOUTH EVERY DAY IN THE MORNING 90 capsule 3 4 Active buprenorphine ER (Sublocade) 100 mg/0.5mL injectionIndicati ons:Opioid type dependence, continuous (CMS/HCC) Inject 0.5 mL (1 each) under the skin every month to absorb continually. 0.5 mL 5 4 08/28/19 25 Active buprenorphine-nal oxone (Suboxone) 2-0.5 MG per sublingual filmIndications:O pioid dependence, uncomplicated (CMS/HCC) Place 1 Film under the tongue Once per day. 28 Film 1 4 Active clotrimazole-beta methasone (Lotrisone) cream Apply topically if needed in the morning and at bedtime (rash) for up to 28 days. Use sparingly 45 g 4 05/23/19 25 Active Problems Problem Noted Date Diagnosed Date Opioid dependence 08/03/2023 Severe dental caries 06/08/2023 Vitamin D deficiency 12/10/2022 Dyslipidemia 11/29/2015 BMI 27.0-27.9,adult 11/29/2015 Resolved Problems Problem Noted Date Diagnosed Date Resolved Date Dental calculus 08/18/2022 01/25/2023 Opioid dependence, uncomplicated 05/26/2022 05/25/2023 Encounters Date Type Department Care Team Description 06/20/2024 1:15 PM EST Clinical Support [facility] [address] [place] [phone] Dilcia Falcon RN Opioid dependence, uncomplicated (CMS/HCC) (Primary Dx) 06/20/2024 Patient Outreach [address] [address] Lc Aguero Recovery Supports 06/20/2024 Travel 05/23/2024 1:30 PM EST Office Visit [address] [address] Neal Carbajal MD Opioid type dependence, continuous (CMS/HCC) (Primary Dx) 05/23/2024 Patient Outreach [address] [address] Addy Cabello Recovery Supports 05/23/2024 Travel 04/25/2024 1:00 PM EST Office Visit [address] [address] Neal Carbajal MD Opioid type dependence, continuous (CMS/HCC) 04/25/2024 Travel 04/18/2024 Refill [facility] [address] [place] [phone] Neal Carbajal MD Opioid dependence, uncomplicated (CMS/HCC) 04/17/2024 Refill [facility] [address] [place] [address] Dilcia Falocn RN Opioid dependence, uncomplicated (CMS/HCC) 04/17/2024 Refill [facility] [address] [place] [phone] Dilcia Falcon RN Opioid dependence, uncomplicated (CMS/HCC) from Last 3 Months Immunizations Name Administration Dates Next Due Hep B, adult 09/01/2016,03/03/2016,01/28/2016 Influenza injectable quadriv alent IIV4 with preservative 01/25/2017 Influenza injectable quadriv alent preservative free 01/25/2023,04/23/2020,04/24/2019 Influenza, IIV3, injectable 02/08/2014 Influenza, seasonal, injecta ble, preservative free 03/02/2024 TD (adult), 2 Lf tetanus tox oid, preservative free, adsorbed 08/03/2023 Tdap 11/14/2013 Family History Medical History Relation Name Comments Arthritis Father Diabetes Mother Hypertension Mother Coronary artery disease Paternal Grandfather Relation Name Status Comments Father Mother Paternal Grandfather Social History Tobacco Use Types Packs/Day Years Used Date Smoking Tobacco: Never Smokeless Tobacco: Never Tobacco Cessation:Counseling Given: Not Answered Alcohol Use Standard Drinks/Week Comments Never 0 [...] Orientation Straight 03/09/2022 10 :26 AM EDT Last Filed Vital Signs Vital Sign Reading Time Taken Comments Blood Pressure 124/71 03/02/2024 11:11 AM EDT Pulse 72 03/02/2024 11:11 AM EDT Temperature 36.2 ??C (97.2 ??F) 03/02/2024 11:11 AM E DT Respiratory Rate 17 03/02/2024 11:11 AM EDT Oxygen Saturation 98% 08/03/2023 10:27 AM EDT Inhaled Oxygen Concentration - - Weight 84.4 kg (186 lb) 03/02/2024 11:11 AM EDT Height 175.3 cm (5' 9 ) 03/02/2024 11:11 AM EDT Body Mass Index 27.47 03/02/2024 11:11 AM EDT Plan of Treatment Upcoming Encounters Date Type Department Care Team (Late st Contact Info) Description 07/04/2024 1:30 PM EST Office Visit [facility] [address] [place] [address] Addy Garrison DDS [address] [place] [address] 07/18/2024 1:45 PM EDT Clinical Support [facility] [address] [place] [address] Dilcia Falcon, RN 08/21/2024 1:00 PM EDT Office Visit [facility] [address] [place] [address] Ivanna Naqvi [address] [place] [address] Health Maintenance Due Date Last Done Comments Anal Pap 09/26/1974 CT Colonography 09/26/1974 Colonoscopy 09/26/1974 FIT 09/26/1974 FOBT 09/26/1974 Sigmoidoscopy 09/26/1974 Alcohol/Substance Use Screening 09/26/1986 Family Planning (PISQ) 09/26/1989 Hepatitis A Vaccines (1 of 2 - Risk 2-dose series) 09/26/1993 Dental Oral Exam 12/08/2023 06/08/2023, 08/18/2022 COVID-19 Vaccine ( season) 2024 06/24/2021, 09/24/2020, 08/27/2020 Dental X-Ray: Bitewings 06/09/2024 06/08/2023, 08/18 SDOH Screening 07/25/2024 07/26/2023 Dental Prophylaxis 08/18/2024 02/17/2024, 0 06/08/2023, 08/18/2022 Zoster Vaccines (1 of 2) 09/26/2024 Depression Screening 03/02/2025 03/02/2024, 03/02/20 Tobacco Screening 05/23/2025 05/23/2024 Dental X-Ray: Full Mouth 08/19/2025 08/18/2022 Colorectal Cancer Screening 03/15/2027 FIT DNA/Cologuard 03/15/2027 03/15/2024 Lipid Panel 03/02/2029 03/02/2024, 08/0 05/2022, 04/23/2020 DTaP/Tdap/Td Vaccines (3 - Td or Tdap) 08/02/2033 08/03/2023, 11/14/2013 RSV Patients and Patients Aged 60 years or older (1 - 1-dose 75+ series) 09/26/2049 Hepatitis B Vaccines Completed 09/01/2016, 03/03/2016, 01/28/2016 HIV Screening Completed 03/02/2024, 07/09, 12/08/2022, Additional history exists Hepatitis C Screening Completed 03/02/2024 , 08/03/2023, 12/08/2022, Additional history exists Influenza Vaccine Completed 03/02/2024, , 04/23/2020, Additional history exists HIB Vaccines Aged Out No longer eligi ble based on patient's age to complete this topic HPV Vaccines Aged Out No longer eligi ble based on patient's age to complete this topic IPV Vaccines Aged Out No longer eligi ble based on patient's age to complete this topic Meningococcal Vaccine Aged Out No sam elizabeth eligible based on patient's age to complete this topic Pneumococcal Vaccine: Pediatrics (0 to 5 Years) and At-Risk Patients (6 to 49) Years) Aged Out No longer eligible based on patient's age to complete this topic RSV under 20 months Aged Out No longe r eligible based on patient's age to complete this topic Rotavirus Vaccines Aged Out No longer eligible based on patient's age to complete this topic Procedures Procedure Name Priority Date/Time Associated Diagnosis Comments POCT ADINA-14 URINE DRUG SCREEN Routine 06/20/2024 1:18 PM EST Opioid dependence, uncomplicated (CMS/HCC) POCT ADINA-14 URINE DRUG SCREEN Routine 05/23/2024 1:18 PM EST Opioid type dependence, continuous (CMS/HCC) POCT ADINA-14 URINE DRUG SCREEN Routine 04/25/2024 1:19 PM EST Opioid type dependence, continuous (CMS/HCC) LAB COLOGUARD?? COLON CANCER SCREEN Routine 03/15/2024 2:52 PM EST Encounter for colorectal cancer screening using Cologuard test HEPATITIS C AB W/REFL TO HCV RNA, QN, PCR Routine 03/02/2024 12:25 PM EDT Opioid dependence, uncomplicated (CMS/HCC) Dyslipidemia Healthcare maintenance HIV 1/2 ANTIGEN/ANTIBODY, FOURTH GENERATION W/RFL Routine 03/02/2024 12:25 PM EDT Opioid dependence, uncomplicated (CMS/HCC) Dyslipidemia Healthcare maintenance LIPID PANEL, STANDARD Routine 03/02/2024 12:25 PM EDT Opioid dependence, uncomplicated (CMS/HCC) Dyslipidemia Healthcare maintenance PROPHYLAXIS - ADULT Routine 02/17/2024 3 :00 PM EDT Dental calculus BITEWINGS - 4 RADIOGRAPHIC IMAGES Routine 06/08/2023 2:00 PM EST PERIODIC ORAL EVALUATION - ESTABLISHED PATIENT Routine 06/08/2023 2:00 PM EST DIAGNOSTIC - DIAGNOSTIC IMAGING - INTRAORAL - COMPREHENSIVE SERIES OF RADIOGRAPHIC IMAGES Routine 08/18/2022 10:00 AM EDT from Last 3 Months or Most Recently Relevant to Health Maintenance Results * POCT ADINA-14 Urine Drug Screen (06/20/2024 1:18 PM EST) Only the most recent of3 resultswithin the time period is included. THC Negative Cocaine Screen, Urine Negative Opiate [...] CARE TEST ENTER/EDIT OR DERABLES Final Result * Cologuard?? colon cancer screening (03/15/2024 2:52 PM EST) Pathologist [facility] Cologuard Result Negative Negative 03/23/20 6:58 PM EST [facility] (CLIA #:[id number]) Comment: NEGATIVE TEST RESULT. A negative Cologuard result indicates a low likelihood that a colorectal cancer (CRC) or advanced adenoma (adenomatous polyps with more advanced pre-malignant features) ??is present. The chance that a person with a negative Cologuard test has a colorectal cancer is less than 1 in 1500 (negative predictive value >99.9%) or has an ??advanced adenoma is less than ??5.3% (negative predictive value 94.7%). These data are based on a prospective cross-sectional study of 10,000 individuals at average risk for colorectal cancer who were screened with both Cologuard and colonoscopy. (Dena Cody. et al, N Engl J Med 2014;370(14):1286- 1297) The normal value (reference range) for this assay is negative. COLOGUARD RE-SCREENING RECOMMENDATION: Periodic colorectal cancer screening is an important part of preventive healthcare for asymptomatic individuals at average risk for colorectal cancer. ??Following a negative Cologuard result, the [place] [employer] Society and U.S. Multi-Society Task Force screening guidelines recommend a Cologuard re-screening interval of 3 years. References: [place] [employer] Guideline for Colorectal Cancer Screening: https://www.cancer.org/cancer/euccp-ewjgtc-prhcvl/wbfxmxsay-vaprcqrks-uozkune/ac s-rec ommendations.html.; Edvin MCKEON, Eugenie KENYON, Nathaniel GutiérrezK, Colorectal Cancer Screening: Recommendations for Physicians and Patients from the U.S. Multi-Society Task Force on Colorectal Cancer Screening , Am J Gastroenterology 2017; 112:6187-3938. TEST DESCRIPTION: Composite algorithmic analysis of stool DNA-biomarkers with hemoglobin immunoassay. ?? Quantitative values of individual biomarkers are not reportable and are not associated with individual biomarker result reference ranges. Cologuard is intended for colorectal cancer screening of adults of either sex, 45 years or older, who are at average-risk for colorectal cancer (CRC). Cologuard has been approved for use by the U.S. FDA. The performance of Cologuard was established in a cross sectional study of average-risk adults aged 50-84. Cologuard performance in patients ages 45 to 49 years was estimated by sub-group analysis of near-age groups. Colonoscopies performed for a positive result may find as the most clinically significant lesion: colorectal cancer [4.0%], advanced adenoma (including sessile serrated polyps greater than or equal to 1cm diameter) [20%] or non- advanced adenoma [31%]; or no colorectal neoplasia [45%]. These estimates are derived from a prospective cross-sectional screening study of 10,000 individuals at average risk for colorectal cancer who were screened with both Cologuard and colonoscopy. (Dena Lovell al, N Engl J Med 2014;370(14):6318-8503.) Cologuard may produce a false negative or false positive result (no colorectal cancer or precancerous polyp present at colonoscopy follow up). A negative Cologuard test result does not guarantee the absence of CRC or advanced adenoma (pre-cancer). The current Cologuard screening interval is every 3 years. ([employer] [employer] and U.S. Multi-Society Task Force). Cologuard performance data in a 10,000 patient pivotal study using colonoscopy as the reference method can be accessed at the following location: www.[employer]Van/results. Additional description of the Cologuard test process, warnings and precautions can be found at www.[employer].com. Stool specimen (specimen) 03/15/2024 2:52 PM EST 03/16/2024 12:20 PM EST Emily Minerva LAB MOLECULAR DIAGNOSTICS OR DERABLES Final Result [facility] (CLIA #:[id number]) [address] [place] [address], * Hepatitis C Antibody with Reflex to HCV, RNA, Quantitative, Real-Time PCR (03/02/2024 12:25 PM EDT) Hepatitis C Antibody Nonreactive Nonreactive [facility] Comment:Antibodies to HCV no t detected; does not exclude early acuteHCV infection. Blood Venous blood specimen / Unknown 03/02/2024 12:25 PM EDT 03/02/2024 1:24 PM EDT [facility] LAB BLOOD ORDERABLES Final R esult Performing Organization Address [facility] Co de Phone Number [facility] [address] [place] [phone] HIV-1/2 Antigen and Antibodies, Fourth Generation, with Reflexes (03/02/2024 12:25 PM EDT) HIV AB/AG Nonreactive Nonreactive [facility] Comment:HIV-1 p24 Ag and/or HIV-1/HIV-2 Ab not detected.A test result that is nonreactive does not exclude thepossibility of exposure to or infection with HIV-1 and/orHIV-2. Nonreactive results in this assay for individualswith prior exposure to HIV-1 and/or HIV-2 may be due toantigen and antibody levels that are below the limit ofdetection of this assay.The [employer]underloop HIV Ag/Ab Combo assay result andsupplemental assay results should be interpreted inconjunction with the patient's clinical presentation,history and other laboratory results. If the results areinconsistent with clinical evidence, additional testing issuggested to confirm the result. Blood Venous blood specimen / Unknown 03/02/2024 12:25 PM EDT 03/02/2024 1:24 PM EDT Emily Palma DO LAB BLOOD ORDERABLES Final R esult Performing Organization Address [facility] Co de Phone Number [facility] [address] [place] [address] [phone] * (ABNORMAL) Lipid Panel, Standard (03/02/2024 12:25 PM EDT) Triglycerides 91 <150 mg/dL [facility] Comment:Desirable Triglyceri de: less than 150 mg/dLBorderline High Triglyceride 150-199 mg/dLHigh Triglyceride: 200-499 mg/dLVery High Triglyceride: greater than or equal to 5OO mg/dL Cholesterol 190 <200 mg/dL [facility] Comment:Desirable Cholestero l: less than 200 mg/dLBorderline High Cholesterol: 200-239 mg/dLHigh Cholesterol: greater than 239 mg/dL LDL Cholesterol Calculated 130(H) <100 mg/dL [facility] Comment:Desirable LDL: less than 100 mg/dLNear Optimal/Above Optimal LDL: 110- 129 mg/dLBorderline High LDL: 130-159 mg/dLHigh LDL: 160-189 mg/dLVery High LDL: greater than or equal to 190 mg/dL HDL Cholesterol 42 >40 mg/dL [facility] Comment:Desirable HDL: great er than 40 mg/dL Note: This HDL assay may give artificially low results in patients with liver disease. Blood Venous blood specimen / Unknown 03/02/2024 12:25 PM EDT 03/02/2024 1:24 PM EDT Emily Palma DO LAB BLOOD ORDERABLES Final R esult Performing Organization Address City/[facility]/ZIP Co de Phone Number [facility] [address] [place] [address] [phone] from Last 3 Months or Most Recently Relevant to Health Maintenance Insurance [facility] LIMITED HSN FULL DENTAL - HSN FULL (MEDICAID) DENTAL-[facility] MEDICAID LIMITED ADULT Care Teams Vehicle Operator Relationship Specialty Start Date End Date Emily Palma DO [address] [place] [address] [phone] PCP - General Family Medicine 11/14/13
--- OUTSIDE RECORDS SUMMARY | 2024-06-21 16:32 | XMS_ITS | Encounter Summary ---
Author Organization [employer] [facility] Address [address] [place] [address] Care Team Providers Care Power Station Operator Name Role Phone Emily Palma Primary Care Provider [phone] Encounter Details Date Type Department Care Team (Late st Contact Info) Description 02/29/2024 Orders Only [facility] [address] [place] [address] [phone] Dilcia Falcon RN Opioid type dependence, continuous (CMS/HCC) (Primary Dx) Social History Tobacco Use [...] Description 07/04/2024 1:30 PM EST Office Visit [facility] [address] [place] [address] Addy Garrison DDS [address] [place] [address] 07/18/2024 1:45 PM EDT Clinical Support [facility] [address] [place] [address] Dilcia Falcon RN 08/21/2024 1:00 PM EDT Office Visit [facility] [address] [place] [address] Melo Naqviaris [address] [place] [address] documented as of this encounter Visit Diagnoses Diagnosis Opioid type dependence, continuous (CMS/[facility])- Primary Opioid type dependence, continuous documented in this encounter Additional Health Concerns Assessment Noted Time PHQ-9 Depression Total Score: 0 01/26/20 23 10:01 AM EDT documented as of this encounter Care Teams Power Station Operator Relationship Specialty Start Date End Date Emily Palma DO [address] [place] [phone] PCP - General Family Medicine 11/14/13 documented as of this encounter
--- OUTSIDE RECORDS SUMMARY | 2024-06-21 16:32 | XMS_ITS | Patient Health Record ---
Author Organization [facility] Address [address] [place] [phone] Support Name Relationship Address Phone Daniel Fletcher Guarantor Unknown Allergies No Known Allergies Reason For Referral No Information Medications Medication SIG (Take, Route, Frequency, Duration) Notes Start Date End Date Status Suboxone Active Social History Tobacco Use: Social History Observation Description Date Details (start date - stop date) Never Smoker NA - NA * Tobacco Use/Smoking assessment Question Answer Notes Are you a nonsmoker Problems Problem Type SNOMED Code ICD Code Onset Dates Problem Status W/U Status Risk Notes Problem Gingivitis (03197561) Gingivitis (K05.10) Active confirmed Plan Of Treatment No Information Medical (General) History Surgical History Surgery Date(Month/Year)
--- OUTSIDE RECORDS SUMMARY | 2024-06-21 16:33 | XMS_ITS | Encounter Summary ---
Author Organization [employer] [facility] Address [address] [place] [address] [address]t [place] [address] Care Team Providers Care Foreign Student Adviser Name Role Phone Emily Palma Primary Care Provider [phone] Reason for Visit * Reason Comments Med Refill Encounter Details Date Type Department Care Team ([facility] st Contact Info) Description 04/18/2024 Refill [facility] [address] [place], [place] [phone] Neal Carbajal MD [address] [place], [place] [phone] Opioid dependence, uncomplicated (CMS/HCC) Social History Tobacco [...] Office Visit [facility] [address] [place] [address] Addy Garrison DDS [address] [place] [address] 07/18/2024 1:45 PM EDT Clinical Support [facility] [address] [place] [address] Dilcia Falcon, CAPRICE 08/21/2024 1:00 PM EDT Office Visit [facility] [address] [place] [address] Ivanna Naqvi [address] [place] [address] documented as of this encounter Visit Diagnoses Diagnosis Opioid dependence, uncomplicated (CMS/HCC) documented in this encounter Additional Health Concerns Assessment Noted Time PHQ-9 Depression Total Score: 2 03/02/20 24 11:12 AM EDT documented as of this encounter Care Teams Foreign Student Adviser Relationship Specialty Start Date End Date Emily Palma DO [address] [place] [address] PCP - General Family Medicine 11/14/13 documented as of this encounter
--- OUTSIDE RECORDS SUMMARY | 2024-06-21 16:33 | XMS_ITS | Encounter Summary ---
Author Organization [employer] [facility] Address [address] [place] [address] [address] [place] [address] Care Team Providers Care Vest Finisher Name Role Phone Emily Palma Primary Care Provider Encounter Details Date Type Department Care Team (Latest Contact Info) Description 05/23/2024 Travel Social History Tobacco Use Types Packs/Day [...] your housing situation today? I have catia ebst 02/22/[address] you li [...] Description 07/04/2024 1:30 PM EST Office Visit [facility] [address] [place] [address] Addy Garrison DDS [address] [place] [address] 07/18/2024 1:45 PM EDT Clinical Support [facility] [address] [place] [address] Dilcia Falcon RN 08/21/2024 1:00 PM EDT Office Visit [facility] [address] [place] [address] Ivanna Naqvi [address] [place] [address] documented as of this encounter Visit Diagnoses Not on filedocumented in this encounter Additional Health Concerns Assessment Noted Time PHQ-9 Depression Total Score: 2 03/02/20 24 11:12 AM EDT documented as of this encounter Care Teams Vest Finisher Relationship Specialty Start Date End Date Emily Palma DO [address] [place] [phone] PCP - General Family Medicine 11/14/13 documented as of this encounter
--- OUTSIDE RECORDS SUMMARY | 2024-06-21 16:33 | XMS_ITS | Encounter Summary ---
Author Organization [facility] Address [address] [place] [address] 7t [place] [address] Care Team Providers Care Lime Kiln Worker Helper Name Role Phone Emily Palma Primary Care Provider [phone] Reason for Visit * Reason Comments OBAT Encounter Details Date Type Department Care Team (Late st Contact Info) Description 05/23/2024 1:30 PM EST Office Visit [facility] MEDICINE [address] [place], [place] [phone] Neal Carbajal MD [address] [place], [place] [phone] Opioid type dependence, continuous (CMS/HCC) (Primary Dx) [...] as of this encounter Progress Notes * Neal Carbajal MD - 05/23/2024 1:30 PM EST Subjective Patient ID: Daniel Whaley is a 49 y.o. male. HPI MassPAT reviewed. Taking Suboxone as prescribed for opioid dependence with no adverse effects. No constipation. Denies cravings, w/d symptoms or illicit substance use. Has Narcan. Declines speaking with head athletic trainer/strength coach or BHN at this time. Lab tests done 03/02/24, all OK. Last month was his 1st dose of Sublocade 100mg. States for 2 days after the dose, he had malaise, n/v, thinks the dose was too high. [place] well after that. Still feels small mass [...] a dose. Never smoked. Still working at [employer]. Talks to 20 y.o. daughter in [place] every weekend. She decided not to attend college. The following portions of the chart were reviewed this encounter and updated as appropriate: Tobacco Allergies Meds Problems Med Hx Surg Hx Fam Hx Review of Systems Constitutional: Negative for fever. Respiratory: Negative for shortness of breath. Cardiovascular: Negative for chest pain. Gastrointestinal: Negative for abdominal pain. Skin: Negative for rash. Neurological: Negative for headaches. Objective Physical Exam Vitals and nursing note reviewed. Constitutional: Appearance: Normal appearance. HENT: Head: Normocephalic and atraumatic. Nose: Nose normal. Eyes: Conjunctiva/sclera: Conjunctivae normal. Pupils: Pupils are equal, round, and reactive to light. Pulmonary: Effort: Pulmonary effort is normal. Skin: General: Skin is warm and dry. Neurological: Mental Status: He is alert. Gait: Gait is intact. Psychiatric: Mood and Affect: Mood and affect normal. Behavior: Behavior normal. Procedures Assessment/Plan Diagnoses and all orders for this visit: Opioid type dependence, continuous ([facility]) Recovery support, harm reduction (including Narcan) and behavioral health attendance reviewed. We discussed stopping Sublocade and returning to Suboxone,. But Daniel would like to try 1 more dose of Sublocade. He feels well now, and we discussed waiting longer for 2nd dose, and scheduled visit in 2 weeks. If he has cravings or w/d sx prior to then, he can all and return for 2nd Sublocade dose. He also has Suboxone strips at home to use if sx occur on a weekend or another time we are closed. If feeling well in 1 week will call to give us an update. - POCT ADINA-14 Urine Drug Screen documented in this encounter Plan of Treatment Upcoming Encounters Date Type Department Care Team (Late st Contact Info) Description 07/04/2024 1:30 PM EST Office Visit [facility] ADULT DENTAL [address] [place] [address] Addy Garrison DDS [address] [place] [address] 07/18/2024 1:45 PM EDT Clinical Support [facility] MEDICINE [address] [place] [address] Dilcia Falcon RN 08/21/2024 1:00 PM EDT Office Visit [facility] ADULT DENTAL [address] [place] [address] Ivanna Naqvi [address] [place] [address] documented as of this encounter Procedures Procedure Name Priority Date/Time Associated Diagnosis Comments POCT ADINA-14 URINE DRUG SCREEN Routine 05/23/2024 1:18 PM EST Opioid type dependence, continuous (CMS/HCC) documented in this encounter Results * POCT ADINA-14 Urine Drug Screen (05/23/2024 1:18 PM EST) THC Negative Cocaine Screen, [...] obtained by clean catch procedure / Unknown 05/23/2024 1:18 PM EST Neal Carbajal MD POINT OF CARE TEST ENTER/EDIT OR DERABLES Final Result documented in this encounter Visit Diagnoses Diagnosis Opioid type dependence, continuous (CMS/HCC)- Primary Opioid type dependence, continuous documented in this encounter Additional Health Concerns Assessment Noted Time PHQ-9 Depression Total Score: 2 03/02/20 24 11:12 AM EDT documented as of this encounter Care Teams Lime Kiln Worker Helper Relationship Specialty Start Date End Date Emily Palma DO [address] [place] [phone] PCP - General Family Medicine 11/14/13 documented as of this encounter
--- OUTSIDE RECORDS SUMMARY | 2024-06-21 16:33 | XMS_ITS | Encounter Summary ---
Author Organization [facility] Address [address] [place] [address] 7 [place] [address] Care Team Providers Care Commercial Loan Closer Name Role Phone Emily Palma DO Primary Care Provider [phone] Reason for Visit * Reason Comments Med Refill Encounter Details Date Type Department Care Team (Late st Contact Info) Description 11/03/2022 Refill [facility] MED[facility]INE [address] [place] [address] Neal Carbajal MD [address] [place], [place] [phone] Opioid dependence, uncomplicated (CMS/HCC) Social History Tobacco [...] Orientation Straight 03/09/2022 10 :26 AM EDT COVID-19 Exposure Response Date Recorded In the last 10 days, have yo u been in contact with someone who was confirmed or suspected to have Coronavirus/COVID-19? No / Unsure 11/06/2022 1:05 PM EDT documented as of this encounter Plan of Treatment Upcoming Encounters Date Type Department Care Team (Late st Contact Info) Description 07/04/2024 1:30 PM EST Office Visit [facility] ADULT DENTAL [address] [place] [address] Addy Garrison DDS [address] [place], [place] [phone] 07/18/2024 1:45 PM EDT Clinical Support [facility] [address] [place] [address] Dilcia Falcon RN 08/21/2024 1:00 PM EDT Office Visit [facility] ADULT DENTAL [address] [place] [address] Driss Ivanna [address] [place] [address] documented as of this encounter Visit Diagnoses Diagnosis Opioid dependence, uncomplicated (CMS/[facility]) documented in this encounter Care Teams Commercial Loan Closer Relationship Specialty Start Date End Date Emily Palma DO [address] [place], [place] [phone] PCP - General Family Medicine 11/14/13 documented as of this encounter
--- OUTSIDE RECORDS SUMMARY | 2024-06-21 16:33 | XMS_ITS | Encounter Summary ---
Author Organization [facility] Address [address]t [place] [address] Care Team Providers Care Environmental Engineering Intern Name Role Phone Emily Palma DO Primary Care Provider [phone] Reason for Visit * Reason Comments [facility] Recovery Supports Encounter Details Date Type Department Care Team (Late st Contact Info) Description 05/23/2024 Patient Outreach [facility] MEDICINE [address] [place], [place] [phone] Addy Cabello Recovery Supports Social History Tobacco Use Types [...] is your housing situation today? I have catiabharat best 02/22/[address] you [...] as of this encounter Progress Notes * Addy Cabello - 05/23/2024 1:20 PM EST I met with Daniel today. Setting: in person at [facility] Recovery Wellness Goals worked on: Social Stability Action taken/next steps: Offered person centered recovery support Additional comments: I spoke with Daniel to check on his recovery, and he informed me that everything is progressing very well. Addy Cabello documented in this encounter Plan of Treatment Upcoming Encounters Date Type Department Care Team (Late st Contact Info) Description 07/04/2024 1:30 PM EST Office Visit [facility] ADULT DENTAL [address] [place] [address] Addy Garrison DDS [address] [place] [address] 07/18/2024 1:45 PM EDT Clinical Support [facility] MEDICINE [address] [place] [address] Dilcia Falcon RN 08/21/2024 1:00 PM EDT Office Visit [facility] ADULT DENTAL [address] [place] [address] Ivanna Naqvi [address] [place] [address] documented as of this encounter Visit Diagnoses Not on filedocumented in this encounter Additional Health Concerns Assessment Noted Time PHQ-9 Depression Total Score: 2 03/02/20 24 11:12 AM EDT documented as of this encounter Care Teams Environmental Engineering Intern Relationship Specialty Start Date End Date Emily Palma DO [address] [place] [address] PCP - General Family Medicine 11/14/13 documented as of this encounter
--- NOTE | 2024-06-21 17:12 | MHC.EDTECH ---
Patient is combative and has refused to allow air and hydronic balancing technician to obtain a Lactic Acid or Vitals as well as refuses to allow another EKG to be done.
[2024-06-21] MEDS: LORazepam 2 MG/ML VIAL IVPUSH ×2 (17:37→21:16)
[2024-06-21] MEDS: Haloperidol Lactate 5 MG/ML VIAL 2.5 MG IVPUSH ×2 (17:38→21:16)
[2024-06-21] MEDS: cefTRIAXone sodium 2 GM VIAL IVPUSH (17:56)
[2024-06-21 18:02] LABS: Lactic Acid 2.4 mmol/L (0.5-2.0)
[2024-06-21] MEDS: vancomycin HCL 1,500 MG in 0.9 % Sodium Chloride 500 ML 333.33 MG IV (18:08)
[2024-06-21] MEDS: 0.9 % Sodium Chloride 500 ML IV (18:13)
[2024-06-21] MEDS: ondansetron HCL 4 MG/2 ML VIAL IVPUSH (18:20)
[2024-06-21] MEDS: Acetaminophen 1,000 MG/100 ML PIGGYBACK 400 MG IV (18:20)
--- NOTE | 2024-06-21 18:48 | P.HPHOSP_ITS ---
History of Present Illness Date of Service: 06/21/24 Attending physician on admission: Weston Vega Chief Complaint: Chest pain Pt is a 49-year-old male with a PMH significant for endocarditis? who presents to the ED after being found laying?on a table at [facility]. When pt initially got to the ED he was drowsy and not answering questions. In the ED pt was febrile up to 101.5 and tachycardic up to 110. Labs were significant for leukocytosis of 11.6, creatinine 1.18, lactic acid 2.4, T bili 1.4, AST 92, CPK 909, and initial troponin 6265.1 with repeat 7543.3. Ethyl alcohol levels undetectable. Tested negative for flu, COVID, RSV. CXR showed no acute cardiopulmonary disease. EKG demonstrated Pt was treated with lorazepam, Haldol, IVF, ondansetron, Tylenol, ceftriaxone, and vancomycin. Pt will be admitted to the hospital [facility] Social History Advance Directives: No Advance Directives Information Provided: Yes Do you have a plan to hurt others: No Plan Meds Allergies Allergy/AdvReac Type Severity Reaction Status Date / Time No Known Allergies Allergy Unverified 06/21/24 13:41 Active Medications: Current Medications Sodium Chloride (Ns) 500 mls @ 500 mls/hr IV .Q1H ONE Stop: 06/21/24 19:03 Last Admin: 06/21/24 18:13 Dose: 500 mls/hr Home Medications ?Medication ?Instructions ?Recorded ?Confirmed ?Last Taken ?Type cholecalciferol (vitamin D3) 50 50 mcg PO QAM 06/21/24 06/21/24 Unknown History mcg (2,000 unit) capsule (Vitamin D3) Physical Exam 2 Vital Signs and Narrative: Vital Signs: Last Vital Signs Temp 101.5 F H 06/21/24 17:59 Pulse 110 H 06/21/24 17:59 Resp 20 06/21/24 17:59 BP 104/64 06/21/24 17:59 Pulse Ox 97 06/21/24 13:36 O2 Del Method Room Air 06/21/24 13:36 BMI result Body Mass Index 24.4 Results Labs 06/21/24 14:51 06/21/24 14:51 Labs: Laboratory Results - last 24 hr 06/21/24 06/21/24 14:51 17:31 MCV 81.7 MCH 28.2 MCHC 34.6 RDW 14.5 Plt Count 133 L MPV 10.5 Immature Gran % (Auto) 0.8 H Neut % (Auto) 84.6 H Lymph % (Auto) 6.2 L [place] % (Auto) 6.7 Eos % (Auto) 1.4 Baso % (Auto) 0.3 Lymph # (Auto) 0.7 L [place] # (Auto) 0.8 Eos # (Auto) 0.2 Baso # (Auto) 0.0 Abs Immat Gran (auto) 0.09 H Absolute Neuts (auto) 9.8 H Absolute Nucleated RBC 0.000 Nucleated RBC % (auto) 0.0 PT 16.6 H INR 1.4 H Anion Gap 16 Estim Creat Clear Calc 68.3 Estimated GFR > 60 Random Glucose 126 H Lactic Acid 2.4 H* Calcium 8.9 D Magnesium 2.1 Total Bilirubin 1.4 H AST 92 H ALT 18 Alkaline Phosphatase 94 Total Creatine Kinase 909 H Total Protein 8.3 H Albumin 3.7 Ethyl Alcohol < 10 Influenza Type A (PCR) NEGATIVE Influenza Type B (PCR) NEGATIVE RSV RNA Qual (PCR) NEGATIVE SARS-CoV-2 RNA (RT-PCR) NEGATIVE Imaging Radiologist's Impressions: Impressions Chest X-Ray 06/21/24 15:57 IMPRESSION: No active pulmonary disease. Electronically signed by: Danis Malik MD 06/21/2024 04:37 PM [facility]
--- NOTE | 2024-06-21 18:57 | PHA.MEDREC ---
Addendum entered by Frederick Warner 06/21/24 19:12: reviewed Original Note: Pharmacy Consult ? Medication Reconciliation Pharmacy has completed the medication reconciliation. Went to speak with patient and he was very slurred with his speech at this time. I utilized claims to confirm his med rec since patient has no one else to contact.
[2024-06-21 19:36] LABS: Reflex Lactate? Lactic Acid Added
--- NOTE | 2024-06-21 19:58 | PHA.PROG ---
Admission Date/Time: Indication: Sepsis Weight in k.5 kg Adjusted body weight in Kg: Gypsy body weight in Kg: Obesity Dosing Indication % IBW: Serum Creatinine - Last 168 Hours 06/21/24 14:51 Creatinine 1.18 Estimated CrCl and GFR - Last 168 Hours 06/21/24 14:51 Estim Creat Clear Calc 68.3 Estimated GFR > 60 Vancomycin Loading Dose: 1500mg Current Vancomycin Dosing Regimen: 750mg q12h Vancomycin Monitoring using AUC goal of 400 - 600 range with trough as surrogate marker: 469mg/L Date and Time for next Vancomycin Level to be drawn: 06/23/2024 @0600 Pharmacist Comments on Vancomycin Plan: Vancomycin dosing will take advantage of [employer] as a clinical decision support tool that uses Bayesian modeling to calculate individual patient's pharmacokinetic parameters and forecast the patient's drug concentration time course with the target goal AUC 24 range of 400 - 600 mg/L/hr.
[2024-06-21 20:54] LABS: ~Lactic Acid-LAB USE ONLY 2.3 mmol/L (0.5-2.0)
[2024-06-21 22:29] LABS: Reflex Lactate? 2 Y
--- NOTE | 2024-06-21 23:24 | PC.NURSE ---
En route to [facility] ER (accepting MD Cook) via [facility].
== END 2024-06-21 23:24 | disposition short-term general hospital (02) ==
PROVIDERS: Physician Assistant Medical; Registered Nurse Emergency; Emergency Provider Emergency Medicine
DX: I62.9 Nontraumatic intracranial hemorrhage, unspecified (principal); A41.9 Sepsis, unspecified organism; I38 Endocarditis, valve unspecified; R07.89 Other chest pain; R29.810 Facial weakness; I49.8 Other specified cardiac arrhythmias; R41.82 Altered mental status, unspecified; R47.81 Slurred speech; R00.0 Tachycardia, unspecified; R79.89 Other specified abnormal findings of blood chemistry; R94.31 Abnormal electrocardiogram [ECG] [EKG]; R50.9 Fever, unspecified; R01.1 Cardiac murmur, unspecified; Z03.818 Encounter for observation for suspected exposure to other biological agents ruled out; Z59.00 Homelessness unspecified; Z86.73 Personal history of transient ischemic attack (TIA), and cerebral infarction without residual deficits; Z79.899 Other long term (current) drug therapy
CPT/HCPCS: 0241U; 36415; 70450; 71045; 72125; 80053; 80307; 82550; 83605; 83735; 84484; 85025; 85610; 87040; 87077; 87147; 87186; 87205; 93005; 96361; 96365; 96366; 96375; 96376; 99285; J0131; J0696; J1630; J2060; J2405; J3371

== ENCOUNTER 2024-10-03 23:05 | Emergency (ER) | payer MEDICAID, SELFPAY ==
[2024-10-03 23:10] VITALS: BP 142/44; BP 150/60; PULSE 89; PULSE 92; RESP 16; TEMP 36.1; O2SAT 95; O2SAT 97; BMI 22.8
--- NOTE | 2024-10-03 23:27 | MHC.EDTECH ---
pts belongings are in the jade port closet on shelf 1
--- NOTE | 2024-10-04 03:41 | PC.NURSE ---
patient remains alert. has been ambulating with steady gait in ED. given snacks and drinks. calm and cooperative. waiting for provider.
[2024-10-04 05:34] VITALS: BP 117/46; PULSE 81; RESP 20; TEMP 36.4; O2SAT 98
[2024-10-04 08:00] VITALS: BP 122/57; PULSE 75; RESP 16; TEMP 36.4; O2SAT 94
[2024-10-04 08:03] LABS: MANUAL DIFF FLAG NO
[2024-10-04 08:04] LABS: Basophils Absolute Auto 0.1 X10*3/uL (0.0-0.2); Basophils Percent Auto 1.1 % (0-2); Eosinophils Absolute Auto 0.2 X10*3/uL (0.0-0.4); Eosinophils Percent Auto 2.5 % (0-4); Hematocrit 37.8 % (42.0-52.0); Hemoglobin 12.6 g/dl (14.0-18.0); Imm Gran Abs Auto 0.01 X10*3/uL (0.00-0.03); Imm Gran Pct Auto 0.1 % (0.0-0.4); Lymphocytes Absolute Auto 4.6 X10*3/uL (1.2-4.9); Lymphocytes Percent Auto 56.7 % (20-40); Mean Corpuscular HGB Conc 33.3 g/dl (31.0-36.0); Mean Corpuscular Hemoglobin 29.6 pg (27.0-33.0); Mean Corpuscular Volume 88.7 fL (80.0-98.0); Mean Platelet Volume 9.7 fL (9.4-12.4); Monocytes Absolute Auto 0.7 X10*3/uL (0.1-1.2); Monocytes Percent Auto 8.1 % (2-11); Neutrophils Absolute Auto 2.6 x10*3/uL (2.0-8.3); Neutrophils Percent Auto 31.5 % (45-73); Platelet Count 230 X10*3/uL (160-400); Red Blood Count 4.26 X10*6/uL (4.60-5.80); Red Cell Distribution Width 16.3 % (11.0-16.0); White Blood Count 8.1 X10*3/uL (4.8-10.8)
[2024-10-04 08:24] LABS: Anion Gap 14 (12-20); Blood Urea Nitrogen 15 mg/dL (9-16); Calcium 9.1 mg/dL (8.4-10.2); Carbon Dioxide 25 mmol/L (22-29); Chloride 104 mmol/L (96-108); Creatinine Clr Calc Pharmacy 54.5; Estimated Glomerular Filt Rate 49; Ethanol < 10 mg/dL; Glucose Random 134 mg/dL (60-115); Potassium 4.1 mmol/L (3.3-5.1); Sodium 139 mmol/L (135-145)
--- NOTE | 2024-10-04 08:26 | ED_ITS ---
HPI - Psych General Chief Complaint: ETOH/Substance Use Stated Complaint: etoh , heroine unknown amount , aox4 Time Seen by Provider: 10/04/24 07:27 Source: patient, EMS and old records reviewed Mode of arrival: EMS Limitations: no limitations History of Present Illness ED Provider: ROBERT ROBERTSON Narrative: 54 yo male with PMH of heroin abuse, HTN, just completed 2 months of antibiotics for endocarditis at [facility]. He admits to sniffing heroin last night. He was sitting in a scooter and confused per EMS. He has no SI/HI. He wants to go to detox. He has an old bruise on L eyebrow but no new injuries. He states he is hungry. He would go to detox today. MD complaint: substance abuse Onset (ago): week(s) Duration: intermittent History of same: Yes Relieving factors: none Exacerbating factors: drug use Context: recent drug abuse Associated psychiatric symptoms: none Associated symptoms: denies other symptoms Treatments prior to arrival: none Related Data Home Medications ?Medication ?Instructions ?Recorded ?Confirmed hydroxyzine pamoate 25 mg capsule 25 - 50 mg PO QID PRN Anxiety 09/21/22 09/21/22 quetiapine 100 mg tablet 100 - 200 mg PO BEDTIME 09/21/22 09/21/22 cholecalciferol (vitamin D3) 50 50 mcg PO DAILY 06/21/24 06/21/24 mcg (2,000 unit) capsule (Vitamin D3) Previous Rx's ?Medication ?Instructions ?Recorded lorazepam 2 mg/mL injection 1 mg (0.5 mL) IVPUSH Q6H PRN 09/22/22 solution anxiety #10 mL morphine 2 mg/mL intravenous 3 mg IVPUSH Q3H PRN Pain, Mild 09/22/22 syringe (Pain Scale 1-3) #10 mL oxycodone 15 mg tablet 15 mg PO Q4H PRN withdrawal #10 09/22/22 tabs piperacillin-tazobactam 2.25 2.25 g (56.25 mL) IV Q12H #1,200 mL 09/22/22 gram/50 mL in dextrose(iso) IV piggyback (Zosyn) vancomycin 750 mg/250 mL in 0.9 % 750 mg (250 mL) IV Q24H #3,000 mL 09/22/22 sodium chloride intravenous solution doxycycline hyclate 100 mg capsule 100 mg PO BID 7 days #14 caps 10/28/23 Allergies Allergy/AdvReac Type Severity Reaction Status Date / Time No Known Allergies Allergy Verified 10/03/24 23:15 Review of Systems 2 Review of Systems: Constitutional : No Fever, No Chills, No Fatigue ENT/Mouth : No sore throat, No Rhinorrhea Eyes: No Eye Pain, No Swelling, No Redness Cardiovascular : No Chest Pain, No SOB, No Dyspnea on Exertion Respiratory : No Cough, No Sputum Gastrointestinal : No Nausea, No Vomiting, No Diarrhea, No abdominal Pain Genitourinary : No Dysuria, No Urinary Frequency, No Hematuria, Musculoskeletal : No joint pain, No Myalgias, No Joint Swelling Skin : No Skin Lesions, No rash Neuro : No Weakness, No Numbness, No Dizziness, no Headache Psych : No Anxiety/Panic, No Depression All other systems reviewed and are negative [facility] Past Medical History Attestation statement: The following information was validated with the patient. Source: old records reviewed Medical History Endocarditis Opioid use disorder Surgical History No pertinent past surgical history Social History Social History Household Members Other:: homeless Housing Other:: homeless Alcohol intake: never Patient Tobacco Use Status: Current everyday Tobacco user Smoked in Last 30 Days: Yes Use of substances other than those prescribed or required for medical reasons: Yes Substance Use Type: Heroin Advance Directives: No Advance Directives Information Provided: No service: No Physical Exam 2 Vital Signs: Vital Signs: Last Vital Signs Temp 97.5 F 10/04/24 08:00 Pulse 75 10/04/24 08:00 Resp 16 10/04/24 08:00 BP 122/57 L 10/04/24 08:00 Pulse Ox 94 10/04/24 08:00 O2 Del Method Room Air 10/04/24 08:00 BMI result Body Mass Index 22.8 Appearance: Alert. Oriented X3. No acute distress. Eyes: Pupils equal, round and reactive to light. ENT: Pharynx normal. old bruise and well healing abrasion to L eyebrow area Neck: Normal inspection. Neck supple. CVS: Normal heart rate and rhythm. Pulses normal. Respiratory: No respiratory distress. Breath sounds normal. Abdomen: Soft and nontender. Skin: Skin warm and dry. Normal skin color. Normal skin turgor. Extremities: No lower extremity edema. No calf ttp Neuro: Oriented X 3. No motor deficit. No sensory deficit. CN2-12 intact Medical Decision Making Medical Decision Making [facility] Narrative: 54 yo male with PMH of heroin abuse, HTN, just completed 2 months of antibiotics for endocarditis at [facility] here after near overdose not on MAT therapy anymore he is asking to go to detox. He has no headache and he is not altered I doubt he has ICH. Labs and recovery team consulted Differential Diagnosis Differential Diagnoses: The differential diagnosis associated with the presentation includes drug abuse, overdose Admission/Observation Consideration of admission/observation: Escalation of care including admission/observation considered pending CARE team/recovery team patient declines detox at this time. wants to go home. Consult Healthcare Provider Management of the patient was discussed with: Behavioral Health Provider Lab Data [facility] Lab Attestation statement: I reviewed the patient's lab results. 10/04/24 07:59 10/04/24 07:59 Labs: Lab Results 10/04/24 Range/Units 07:59 WBC 8.1 (4.8-10.8) X10*3/uL RBC 4.26 L (4.60-5.80) X10*6/uL Hgb 12.6 L (14.0-18.0) g/dl Hct 37.8 L (42.0-52.0) % MCV 88.7 (80.0-98.0) fL MCH 29.6 (27.0-33.0) pg MCHC 33.3 (31.0-36.0) g/dl RDW 16.3 H (11.0-16.0) % Plt Count 230 D (160-400) X10*3/uL MPV 9.7 (9.4-12.4) fL Immature Gran % (Auto) 0.1 (0.0-0.4) % Neut % (Auto) 31.5 L (45-73) % Lymph % (Auto) 56.7 H (20-40) % [place] % (Auto) 8.1 (2-11) % Eos % (Auto) 2.5 (0-4) % Baso % (Auto) 1.1 (0-2) % Lymph # (Auto) 4.6 (1.2-4.9) X10*3/uL [place] # (Auto) 0.7 (0.1-1.2) X10*3/uL Eos # (Auto) 0.2 (0.0-0.4) X10*3/uL Baso # (Auto) 0.1 (0.0-0.2) X10*3/uL Abs Immat Gran (auto) 0.01 (0.00-0.03) X10*3/uL Absolute Neuts (auto) 2.6 (2.0-8.3) x10*3/uL Absolute Nucleated RBC 0.000 (0.0-0.012) X10*3/uL Nucleated RBC % (auto) 0.0 (0.0-0.2) /100WBC Sodium 139 (135-145) mmol/L Potassium 4.1 D (3.3-5.1) mmol/L Chloride 104 (96-108) mmol/L Carbon Dioxide 25 (22-29) mmol/L Anion Gap 14 (12-20) BUN 15 (9-16) mg/dL Creatinine 1.49 H (0.5-1.4) mg/dL Estim Creat Clear Calc 54.5 Estimated GFR 49 Random Glucose 134 H (60-115) mg/dL Calcium 9.1 (8.4-10.2) mg/dL Magnesium 2.0 (1.6-2.6) mg/dL Ethyl Alcohol < 10 mg/dL Independent Historian Clinical information obtained from an independent historian. History obtained from or confirmed by: EMS External Record Review External record reviewed: Inpatient record and Outpatient record Social Determinants Patient?s care significantly limited by Social Determinants of Health including: Inadequate housing and Problems related to primary support group Discharge Plan Discharge Clinical Impression: Opioid use disorder, Acute dehydration Patient Disposition: Home, Self-Care Instructions: Opioid Use Disorder (ED), Dehydration (ED) Additional Instructions: mild dehydration, drink plenty of fluids Opiate use disorder You were seen in our Emergency Department today for treatment of opiate use disorder. You may have been dosed with medication for opiate use disorder (MOUD) in the form of suboxone or methadone. You may experience feeling some withdrawal symptoms and this is normal. The? dose in the Emergency Department is a starting dose and meant to be titrated up once you follow up with a clinic. Please do not feel discouraged, it is a process. The nurse has reviewed with you where to follow up and what information to bring with you, to continue treatment. You also may have been given naloxone (narcan) to take home with you. This medication is used to potentially treat opiate overdose. If you decide you want to stop or cut down on how much you?re using, you can call or walk into our outpatient Addiction Treatment office: [facility] (M-F 9am-5p) [address] [facility], [address] [phone] You may have been provided with safer injection?items, please take time to take care of YOU and your health. Use new supplies whenever possible to lessen the chances of infections and other illnesses.? ?If you need more supplies, please go [facility],? [address] [place] [address] OR you can call or text to coordinate delivery of safer supplies. You were also provided a list of several treatment providers in the area.? If you experience any worsening symptoms you cannot control please return to the ED or call 911. Please follow up at your next appointment. Things to look out for are fevers, chest pain, shortness of breath, severe pain, dizziness, fainting or any other concerns. Prescriptions: No Action doxycycline hyclate 100 mg capsule 100 mg PO BID 7 Days Qty: 14 0RF quetiapine 100 mg tablet 100 - 200 mg PO BEDTIME hydroxyzine pamoate 25 mg capsule 25 - 50 mg PO QID PRN (Reason: Anxiety) lorazepam 2 mg/mL Solution 1 mg IVPUSH Q6H PRN (Reason: anxiety ) Qty: 10 0RF oxycodone 15 mg Tablet 15 mg PO Q4H PRN (Reason: withdrawal) Qty: 10 0RF Rx Instructions: Partial Fill upon patient request. morphine 2 mg/mL Syringe 3 mg IVPUSH Q3H PRN (Reason: Pain, Mild (Pain Scale 1-3)) Qty: 10 0RF Protocol: Hold for RR < HOLD and contact provider for RR < (bpm): 12 Rx Instructions: Partial Fill upon patient request. vancomycin in 0.9 % sodium chl 750 mg/250 mL solution 750 mg IV Q24H Qty: 3000 0RF Zosyn in dextrose (iso-osm) 2.25 gram/50 mL piggyback 2.25 g IV Q12H Qty: 1200 0RF cholecalciferol (vitamin D3) [Vitamin D3] 50 mcg (2,000 unit) capsule 50 mcg PO DAILY Print Language: Luxembourgish
--- NOTE | 2024-10-04 10:24 | PC.NURSE ---
Pt gv 2 take-home doses of nasal Narcan for self-administration
[2024-10-04 10:29] VITALS: BP 122/57; PULSE 75; RESP 16; TEMP 36.4; O2SAT 94
--- NOTE | 2024-10-04 10:39 | MHC.CARE ---
Pt was seen at request of as pt wanted detox. Pt has been assessed and preparations made for Detox bedsearch. During the process, pt requested discharge, no longer interested in a detox placement.
== END 2024-10-04 10:47 | disposition home or self-care (01) ==
PROVIDERS: Emergency Provider Emergency Medicine
DX: F19.10 Other psychoactive substance abuse, uncomplicated (principal); E86.0 Dehydration; I10 Essential (primary) hypertension; F17.200 Nicotine dependence, unspecified, uncomplicated; Z79.899 Other long term (current) drug therapy
CPT/HCPCS: 36415; 80048; 80307; 83735; 85025; 99284; S9485